=== PATIENT | female | born 1945 | race Caucasian/White ===

== ENCOUNTER → 2018-05-12 11:52 | Outpatient (CLI) | payer MEDICARE, SELFPAY ==
[2018-05-12 13:54] LABS: Absolute Lymphocyte Count 1.27 X10^3/ul (0.83-4.51); Absolute Neutrophil Count 3.5 X10^3/uL (2.0-7.7); Basophil# 0.03 X10^3/uL; Basophil% 0.6 % (0-1); Eosinophil# 0.17 X10^3/uL; Eosinophils% 3.2 % (0-5); Hematocrit 37.4 % (37-47); Hemoglobin 12.3 g/dl (12.0-15.0); Lymphocyte # 1.27 X10^3/ul (4.0); Lymphocyte % 23.8 % (19-41); Mean Corp Hgb Conc 32.9 g/gl (32-36); Mean Corpuscular Hgb 31.1 pg (27.0-32.0); Mean Corpuscular Volume 94.4 fL (81-99); Mean Platelet Vol. 12.8 fl (6.2-12.0); Monocyte# 0.31 X10^3/uL; Monocyte% 5.8 % (0-10); Neutrophil # 3.54 X10^3/uL (2.7-7.7); Neutrophil % 66.4 % (47-70); Platelet Count 174 K/mm3 (150-450); RBC Distribution Width CV 12.7 % (11.6-14.6); Red Blood Count 3.96 M/mm3 (4.2-5.4); White Blood Count 5.3 K/mm3 (4.4-11.0)
[2018-05-12 13:55] LABS: POSITIVE COUNT NO; POSITIVE DIFFERENTIAL NO; POSITIVE MORPHOLOGY NO
[2018-05-12 13:56] LABS: Anion Gap 9 (5-15); BUN 19 mg/dL (7-18); BUN/Creat Ratio 18.6 RATIO (10-20); Calcium,Total 9.5 mg/dL (8.5-10.1); Chloride 107 mmol/L (98-107); Creatinine, Serum 1.02 mg/dL (0.55-1.02); EST Glomerular Filtration Rate 57 mL/min (>60); Est Glom Filt Rate - Afr Amer 69 mL/min (>60); Glucose 89 mg/dL (74-106); Potassium 3.6 mmol/L (3.5-5.1); Sodium Level 143 mmol/L (136-145)
[2018-05-12 14:05] LABS: BNP,B-Type NATRIURETIC PEPTIDE 59.3 pg/mL (0-100)
== END ==
PROVIDERS: Family Provider Family Medicine; PCP Family Medicine; Visit Provider Family Medicine
DX: R06.02 Shortness of breath (principal)
CPT/HCPCS: 36415; 71046; 80048; 83880; 85025

== ENCOUNTER → 2018-08-13 16:11 | Outpatient (CLI) | payer MEDICARE, SELFPAY ==
--- NOTE | 2018-08-13 16:23 | BI_ITS ---
MAMMOGRAPHY - BILATERAL SCREENING REASON FOR EXAM: Female, 72 years old. Routine annual screening examination. PERTINENT HISTORY: Non-contributory. TECHNIQUE: Digital bilateral breast linda (3D mammographic acquisition) in the CC and MLO projections. 2-D mediolateral oblique (MLO) and craniocaudad (CC) views of both breasts were obtained. CAD: Full Field Digital Mammography with Computer Added Detection was performed. COMPARISON: Comparison is made with prior study dated July 16, 2017 and July 12, 2016. FINDINGS: Breast Composition: The breasts are heterogeneously dense, which may obscure small masses. There are no dominant masses or suspicious calcifications. A tissue clip marker is once again seen in the deep central slightly medial aspect of the left breast. A 7.4 mm nodular density is seen at that site. This is unchanged. No other significant abnormalities are identified. There has been no significant change since the prior study. BI/SCREENING MAMM (CAD), BILAT IMPRESSION: Stable bilateral screening mammogram. Yearly follow-up mammogram recommended. (A) ASSESSMENT CATEGORY: BIRADS Category 2: Benign. A letter regarding these results will be sent to the patient by the facility within 30 days. Approximately 10% of breast cancers are not detected by mammography. A normal mammogram should not delay biopsy of a clinically suspicious abnormality. [id number] Electronically Signed: Shyam Chung MD at 8:44 EST Tel [phone], Service support ,
--- OUTSIDE RECORDS SUMMARY | 2018-10-09 02:36 | XMS RPT_ITS ---
:1945 Author Organization OHIP Care Team Providers Name Role Phone Kayden Berg Attending Unavailable Kayden Berg Referring Unavailable Kayden Breg Primary Care Unavailable Kayden Berg Attending Unavailable Kayden Berg Primary Care Unavailable PROBLEMS PROBLEMS DATE TYPE CONDITION / CODE ATTENDING STATUS SOURCE 06/03/2018 Unknown R06.02 - Kayden Berg Active [place] Shortness of [facility] breath / Hospital R06.02(ICD-10) Repository PROCEDURES PROCEDURES No Procedure Records FoundRESULTS RESULTS SCREENING MAMM (CAD), Observed: 08/13/2018 Status: F Source: [place] BILAT 4:23 PM [facility] REPOSITORY [facility] Imaging Services [address] [place] [address] SCREENING MAMM (CAD), BILAT MR#: [id number] Acct: [id number] Name: LIA GTZ Rep #: [id number] : 1945 F 72 From: Shyam Chung MD PCP: Kayden Berg MD Status: REG CLI Study: SCREENING MAMM (CAD), BILAT Date of Exam: 08/13/18 Exam# [id number] Ordering Dr: Kayden Berg MD MAMMOGRAPHY - BILATERAL SCREENING REASON FOR EXAM: Female, 72 years old. Routine annual screening examination. PERTINENT HISTORY: Non-contributory. TECHNIQUE: Digital bilateral breast linda (3D mammographic acquisition) in the CC and MLO projections. 2-D mediolateral oblique (MLO) and craniocaudad (CC) views of both breasts were obtained. CAD: Full Field Digital Mammography with Computer Added Detection was performed. COMPARISON: Comparison is made with prior study dated July 16, 2017 and July 12, 2016. FINDINGS: Breast Composition: The breasts are heterogeneously dense, which may obscure small masses. There are no dominant masses or suspicious calcifications. A tissue clip marker is once again seen in the deep central slightly medial aspect of the left breast. A 7.4 mm nodular density is seen at that site. This is unchanged. No other significant abnormalities are identified. There has been no significant change since the prior study. BI/SCREENING MAMM (CAD), BILAT IMPRESSION: Stable bilateral screening mammogram. Yearly follow-up mammogram recommended. (A) ASSESSMENT CATEGORY: BIRADS Category 2: Benign. A letter regarding these results will be sent to the patient by the facility within 30 days. Approximately 10% of breast cancers are not detected by mammography. A normal mammogram should not delay biopsy of a clinically suspicious abnormality. [id number] Electronically Signed: Shyam Chung MD at 8:44 EST Tel [phone], Service support , CC: Kayden Berg MD City Controller: Signed CBC W/DIFF, AUTOMATED Collected: 05/12/2018 Status: F Source: [place] 12:02 PM [facility] REPOSITORY TYPE CODE TESTS RESULT OUT OF RANGE REFERENCE UNITS LAB L100.1000 4.4-11.0 K/mm3 Normal WBC 5.3 LAB L100.1200 4.2-5.4 M/mm3 Low RBC 3.96 LAB L100.1300 12.0-15.0 g/dl Normal HGB 12.3 LAB L100.1400 37-47 % Normal HCT 37.4 LAB L100.1500 81-99 fL Normal MCV 94.4 LAB L100.1600 27.0-32.0 pg Normal MCH 31.1 LAB L100.1700 32-36 g/gl Normal MCHC 32.9 LAB L100.1810 11.6-14.6 % Normal RDW CV 12.7 LAB L100.1820 35.1-43.9 fl Normal RDW SD 43.0 LAB L100.1900 150-450 K/mm3 Normal PLT 174 LAB L100.2000 6.2-12.0 fl High MPV 12.8 LAB L100.2100 47-70 % Normal NEUT% 66.4 LAB L100.2200 19-41 % Normal LY% 23.8 LAB L100.2300 0-10 % Normal MONO% 5.8 LAB L100.2400 0-5 % Normal EO% 3.2 LAB L100.2500 0-1 % Normal BASO% 0.6 LAB L100.2550 0.0-0.9 % Normal IM GRAN % 0.200 Result Comment: IG% - Immature Granulocytes (promyelocytes, myelocytes and metamyelocytes) > 1% indicates that a LEFT SHIFT is Present. LAB L100.2620 2.0-7.7 X10 3/uL Normal Absolute Neut 3.5 LAB L100.2720 0.83-4.51 X10 3/ul Normal Absolute Lymph 1.27 Performed By: #### L100.0100 #### [facility] [address] [place], [address] BASIC METABOLIC Collected: 05/12/2018 Status: F Source: [place] PROFILE (BMP) 12:02 PM [facility] REPOSITORY TYPE CODE TESTS RESULT OUT OF RANGE REFERENCE UNITS LAB L501.0100 74-106 mg/dL Normal GLU 89 Result Comment: Please note revised GLUCOSE reference range effective 2017. LAB L501.1000 7-18 mg/dL High BUN 19 LAB L501.1100 0.55-1.02 mg/dL Normal CREAT,SERUM 1.02 Result Comment: The validity of the calculated GFR AND GFRAA in patients over 70 years has not been determined. Clinical correlation is essential. LAB L501.1110 >60 mL/min Low EST GFR 57 Result Comment: Non- GFR Calc LAB L501.1115 >60 mL/min Normal EST GFR - AA 69 Result Comment: GFR Calc LAB L501.1300 10-20 RATIO Normal BUN/CRE 18.6 LAB L501.2200 8.5-10.1 mg/dL CA Normal 9.5 LAB L501.5300 136-145 mmol/L NA Normal 143 LAB L501.5600 3.5-5.1 mmol/L K Normal 3.6 LAB L501.5900 98-107 mmol/L CL Normal 107 LAB L501.6100 21.0-32.0 mmol/L Normal CO2 27.0 LAB L501.6200 5-15 Normal GAP 9 Performed By: #### L500.2500 #### [facility] [address] [place], [address] BNP,B-TYPE NATRIURETIC Collected: 05/12/2018 Status: F Source: [place] PEPTIDE 12:02 PM [facility] REPOSITORY TYPE CODE TESTS RESULT OUT OF RANGE REFERENCE UNITS LAB L503.6620 0-100 pg/mL Normal B-TYPE 59.3 JOSETTE PEP Performed By: #### L503.6620 #### [facility] [address] [facility] [place], [address] CHEST PA AND LATERAL Observed: 05/12/2018 Status: F Source: [place] 12:01 PM [facility] REPOSITORY [facility] Imaging Services [address] [place] [address] Chest PA and Lateral MR#: [id number] Acct: [id number] Name: LIA GTZ Rep #: [id number] : 1945 F 72 From: Sunil Pleitez MD PCP: Kayden Berg MD Status: REG CLI Study: Chest PA and Lateral Date of Exam: 05/12/18 Exam# [id number] Ordering Dr: Kayden Berg MD STUDY: X-RAY CHEST REASON FOR EXAM: Female, 72 years old. Shortness of breath TECHNIQUE: Frontal and lateral views of the chest COMPARISON: 02/03/2017 FINDINGS: There is a stable calcified granuloma in the right midlung. The lungs are otherwise clear. There are no pleural effusions. There is no pneumothorax. The heart is normal in size. The visualized osseous structures are within normal limits. RAD/Chest PA and Lateral IMPRESSION: No acute thoracic pathology. Electronically Signed: Sunil Pleitez, at 16:53 EDT Tel , Service support , CC: Kayden Berg MD City Controller: Signed ALLERGIES ALLERGIES DATE TYPE / CODE NAME / CODE REACTION SEVERITY SOURCE 02/03/2017 Drug Latex, Natural Rash Unknown Jd [facility] Allergy/4160 Rubber/[id number] Hospital 53178(SNOMED 526(RXNORM) Repository CT) 02/03/2017 Drug azithromycin/F Vomiting Unknown Jd [facility] Allergy/4160 [id number](RXNO Hospital 84901(SNOMED RM) Repository CT) ENCOUNTERS ENCOUNTERS ADMIT/DISCHARGE ACCOUNT ADMITTING ENCOUNTER LOCATION SOURCE NUMBER CLASS 08/13/2018 [id number] Ambulatory Jd Jd 4 [facility] ing:OPBI Repository 05/12/2018 [id number] Ambulatory [place] Jd 6 [facility] ing:MTLAB Repository PAYERS PAYERS ENCOUNTER GUARANTOR PAYER SUBSCRIBER SOURCE 08/13/2018 LIA Pena [place] [id number] Insurance:CHRISTI IBARRA: [facility] RDAPT MEDICARE [facility] [id number] Number: Repository [id number]: [phone] [id number] [phone] () Date:[id number] [id number]: 08/13/2018 Secondary NOT GIVENUNK Jd Insurance:SELF PAY [facility] Number: Effective Repository Date:2018-07-03 05/12/2018 LIA Pena Primary LIA Clements [id number] Insurance:CHRISTI HARRYB: [facility] RDAPT MEDICARE [facility] [id number] Number: Repository [id number]: [phone] [id number] [phone] () Date:[id number] [address] [place] [id number]: 05/12/2018 Secondary NOT GIVENGUILLERMINA Clements Insurance:SELF PAY [facility] Number: Effective Repository Date:2018-05-12
== END ==
PROVIDERS: Family Provider Family Medicine; PCP Family Medicine; Visit Provider Family Medicine
DX: Z12.31 Encounter for screening mammogram for malignant neoplasm of breast (principal)
CPT/HCPCS: 77063; 77067

== ENCOUNTER → 2018-12-04 13:56 | Outpatient (CLI) | payer MEDICARE, SELFPAY ==
[2018-12-04 18:05] LABS: Anion Gap 7 (5-15); BUN 19 mg/dL (7-18); BUN/Creat Ratio 18.3 RATIO (10-20); Calcium,Total 9.2 mg/dL (8.5-10.1); Chloride 106 mmol/L (98-107); Cholesterol 237 mg/dL (200); Creatinine, Serum 1.04 mg/dL (0.55-1.02); EST Glomerular Filtration Rate 56 mL/min (>60); Est Glom Filt Rate - Afr Amer 67 mL/min (>60); Glucose 87 mg/dL (74-106); High Density Lipoprotein 69 mg/dL; Potassium 3.9 mmol/L (3.5-5.1); Sodium Level 142 mmol/L (136-145); Triglycerides 108 mg/dL; Very Low Density Lipoprotein 22 mg/dL (5-40)
== END ==
PROVIDERS: Family Provider Family Medicine; PCP Family Medicine; Referring Provider Family Medicine; Visit Provider Family Medicine
DX: I10 Essential (primary) hypertension (principal)
CPT/HCPCS: 36415; 80048; 80061

== ENCOUNTER → 2019-01-06 10:45 | Outpatient (CLI) | payer MEDICARE, SELFPAY ==
[2017-02-03 07:34] VITALS: BMI 23.4
--- NOTE | 2019-01-06 10:51 | BD_ITS ---
STUDY: DUAL ENERGY X-RAY ABSORPTIOMETRY / DXA REASON FOR EXAM: Female, 73 years old. The patient is postmenopausal. No loss of height. TECHNIQUE: Bone Mineral Density (BMD) measurements of lumbar spine and bilateral hips were obtained. COMPARISON: Comparison is made with prior study dated January 02, 2017. FINDINGS: Lumbar Spine (L1-L4): g/cm2 (1.090) / T-score (-0.7) / Z-score (0.9) Findings are suggestive of normal bone density with a low fracture risk. Left Femur Total: g/cm2 (0.714) / T-score (-2.3) / Z-score (-0.8) Left Femoral Neck: g/cm2 (0.628) / T-score (-2.9) / Z-score (-1.2) Right Femur Total: g/cm2 (0.678) / T-score (-2.6) / Z-score (-1.1) Right Femoral Neck: g/cm2 (0.590) / T-score (-3.2) / Z-score (-1.5) The T-Scores on the most recent prior examination were: Lumbar Spine (L1-L4): There has been improvement of bone density since the previous examination. Left Femur Total: which represents an improvement of 0.8%. Right Femur Total: which represents a worsening of 1.7%. BD/Dexa Bone Density Study IMPRESSION: The patient is considered osteoporotic as outlined below according to World Homer Organization (WHO) criteria with a high fracture risk. There has been improvement of bone density since the previous examination. Reference Information: The T-score is the number of standard deviations above or below the standard which is normal for young adults at their peak bone mineral density. The World Health Organization (WHO) interprets the T-scores as follows: Above -1 Normal bone density Between -1 and -2.5 Osteopenia Equal to / or below -2.5 Osteoporosis As a practical clinical guideline, osteopenia may be graded as follows: Mild -1 through -1.5 Moderate -1.6 through -2.0 Severe -2.1 through -2.4 The Z-score is the number of standard deviations above or below age-matched controls. A Z-score of less than -1.5 would be considered abnormal. References: 1. NIH Osteoporosis and Related Bone Diseases http://www.osteo.org 2. International Society for Clinical Densitometry http://www.iscd.org 3. National Osteoporosis Foundation http://www.nof.org Electronically Signed: Shyam Chung, at 8:38 EDT , Service support ,
== END ==
PROVIDERS: Family Provider Family Medicine; PCP Family Medicine; Referring Provider Family Medicine; Visit Provider Family Medicine
DX: M81.0 Age-related osteoporosis without current pathological fracture (principal)
CPT/HCPCS: 77080

== ENCOUNTER 2019-05-01 06:43 | Emergency (ER) | payer MEDICARE, SELFPAY ==
[2019-05-01 06:44] VITALS: BP 217/117; PULSE 114; RESP 16; TEMP 37; O2SAT 96; BMI 26.6
--- NOTE | 2019-05-01 06:57 | RAD_ITS ---
STUDY: X-RAY - SOFT TISSUE NECK REASON FOR EXAM: Female, 73 years old. Pain possible foreign body TECHNIQUE: AP and lateral view(s) of the neck were obtained. COMPARISON: None. FINDINGS: Normal visualized nasopharynx, oropharynx, hypopharynx. There are no radiopaque foreign bodies. Normal epiglottis. Normal visualized subglottic tracheal air column. Normal prevertebral soft tissue structures. There is multilevel bony sclerosis of the facets.. There is disc space narrowing at C5-C6 there is a 3 mm anterior listhesis of C6 on C5. There is soft tissue mass within the right lower cervical region. RAD/Neck for Soft Tissue IMPRESSION: No radiopaque foreign bodies, if there is still clinical concern barium swallow or CT could be performed Soft tissue mass within the right lower cervical region, correlation with CT neck is recommended Multilevel spondylosis Electronically Signed: Elias Ambrosio, at 7:40 EDT Tel , Service support ,
--- NOTE | 2019-05-01 06:58 | ED.VIS.GEN ---
History of Present Illness Chief Complaint: Foreign Body Detail of Chief Complaint: Concern that a pit is stuck in her throat Informant: Patient Onset: Yesterday - Context: Sudden Onset Timing: Continuous Quality: Foreign body sensation Location: Anterior neck right level of larynx Current Severity: Mild Maximum Severity: Moderate Worsened by: Possibly swallowing Relieved by: Nothing Associated Symptoms: No dysphonia, no drooling Narrative: Patient is an elderly woman who presents with foreign body sensation since last evening. She was eating dates. She believes a pit is stuck. She did not sleep the entire night because she was concerned that her airway with occluded. She initially got up and would expectorate her saliva because she was concerned if she swallowed things would be worse. She is had no drooling. She slept upright in a chair. She has not had any to eat or drink since experiencing the foreign body sensation. She is on no antihypertensive meds. She denies history of hypertension. She denies headache. She does report problems with vision secondary to cataracts. She denies loss of vision or double vision. She denies slurring of her words. She denies ringing or ears or decreased hearing. She states her balance has been off the last 2 days. She denies clumsiness, however. She denies paresthesia, anesthesia or motor weakness. She was unaware that she had swelling of her lower extremities. She denies orthopnea or PND. She denies anginal anginal equivalent symptoms. Prior similar symptoms: No Recent Illness/Hospitalization: No Past Medical History - Allergies and Home Meds Allergies/Adverse Reactions: Allergies azithromycin Adverse Reaction (Verified 05/01/19 06:46) Vomiting Latex, Natural Rubber Adverse Reaction (Verified 05/01/19 06:46) Rash Primary Care Physician: Kayden Berg MD [Primary Care Provider] - Prior records reviewed: Yes - Based on medication patient has memory impairment Surgical History: noncontributory Lives: Alone Smoking Status: Never smoker Alcohol: None Drugs: None Review of Systems General: Denies: Chills, Fever, Malaise, Sweats, Weight loss Eyes: Denies: Visual changes - bilaterally, Blurred Vision - bilaterally, Diplopia ENT: Reports: - - No drooling, no dysphonia and no gagging. Denies: Bilateral ear pain, Rhinorrhea, Sore throat Cardiovascular: Denies: Chest pain, Palpitations, Heart racing Respiratory: Denies: Dyspnea, Cough, Dyspnea on exertion, Orthopnea, Paroxysmal nocturnal dyspnea Gastrointestinal: Denies: Abdominal pain, Nausea, Vomiting, Diarrhea, Melena, Hematochezia Genitourinary: Denies: Dysuria, Hematuria, Frequency Musculoskeletal: Denies: Back pain, Extremity Pain Skin: Denies: Rash, Wounds Neurological: Denies: Headache, Weakness, Numbness Psych: Reports: Anxiety. Denies: Suicidal thoughts, Suicidal ideations Hematologic: Denies: Easy bruising, Easy bleeding Allergy: Denies: Uticaria, Swelling of the mouth, Swelling of the tongue Physical Exam Vital Signs/Narrative: Vital Signs Temp Pulse Resp BP Pulse Ox 05/01/19 06:44 98.6 F 114 H 16 217/117 H 96 Inital Vital Signs reviewed: Yes - Blood pressure is significantly elevated General: Well nourished, Well developed, No Acute Distress Head: Normocephalic, Atraumatic Eyes: Perrl, EOMI ENT: Moist mucous membranes, No rhinorrhea, TM's clear, - - Trachea is midline. There is no stridor. There is no evidence of dysphonia or dysphasia. There is a lipoma noted anterior right neck which has been surgically removed x2 according the patient. Neck: Supple, Nontender, No lymphadenopathy, No JVD Cardiovascular: Regular rate, Regular rhythm, No murmurs, Normal S1, Normal S2 Respiratory: No distress, CTA bilaterally, Chest nontender Abdomen: Soft, Nontender, Nondistended, Normal bowel sounds Back: Nontender, Normal Inspection Extremities: Nontender, Edema - 1+ Skin: Normal color, No rash, No Trauma. Negative for: Cyanosis, Diaphoresis, Jaundice Neurological: Alert, Oriented x3, Cranial nerves II-XII grossly intact, Normal Strength, Normal Sensation, Normal DTR, Normal Gait Psychological: Normal affect, Normal Mood, - - Patient appears anxious Diagnostic/Tx/Re-eval Chest X-Ray - ED: 2 View, Read by ED Physician, - - Three-view x-ray of the soft tissue reveals no foreign body. Epiglottis is normal. There is air in the prevertebral space. There is no swelling of the prevertebral space. No evidence of foreign body in the vallecula. 0734 05/01/19 06:57 Xray Neck Soft Tissue [Neck for Soft Tissue] [RAD] Stat Laboratory Results 05/01/19 05/01/19 05/01/19 07:04 07:04 07:11 WBC 5.2 RBC 4.05 L Hgb 13.0 Hct 38.5 MCV 95.1 MCH 32.1 H MCHC 33.8 RDW Std Deviation 43.7 RDW Coeff of Keven 12.4 Plt Count 197 MPV 11.2 Immature Gran % (Auto) 0.000 Neut % (Auto) 47.7 Lymph % (Auto) 41.6 H Glasscock % (Auto) 6.8 Eos % (Auto) 3.1 Baso % (Auto) 0.8 Absolute Neuts (auto) 2.5 Absolute Lymphs (auto) 2.14 Nucleated RBC % 0 Sodium 141 Potassium 3.8 Chloride 106 Carbon Dioxide 27.0 Anion Gap 8 BUN 9 Creatinine 0.99 Estim Creat Clear Calc 39.33 Est GFR (MDRD) Af Amer 71 Est GFR (MDRD) Non-Af 59 L BUN/Creatinine Ratio 9.1 L Glucose 103 Calcium 9.2 Urine Color Yellow Urine Clarity Clear Urine pH 5.0 Ur Specific Kimberly 1.010 Urine Protein Negative Urine Glucose (UA) Normal Urine Ketones Negative Urine Occult Blood 10 H Urine Nitrite Negative Urine Bilirubin Negative Urine Urobilinogen Normal Ur Leukocyte Esterase 100 H Urine RBC 0 SEEN Urine WBC 0-5 SEEN Ur Squamous Epith Cells 0 SEEN Urine Bacteria 0 SEEN Urine Mucus 0 SEEN - Medical Decision Making Medications were reviewed. None of the medicines that she has listed are associated with angioedema. Suspect patient has an abrasion. Will obtain soft tissue x-ray to determine if there Is a pit. Because of her markedly elevated blood pressure pitting edema will obtain baseline blood work looking for evidence of endorgan injury. We will also monitor blood pressure. This may be secondary to anxiety since she voices concerns that are somewhat exaggerated and the fact that she is tachycardic. Since there is no obvious foreign body noted, patient was given a glass of water. Will reassess blood pressure. There is no evidence of endorgan injury. If blood pressure is still markedly elevated will initiate medication. Repeat blood pressure is 213/94. Patient received lisinopril in the emergency department and was discharged with prescription for lisinopril. She was instructed to follow-up with her primary care physician Dr. Kayden Berg in 1 to 2 weeks. ED Disposition - Plan for ED Patient: Diagnosis: Foreign body sensation in throat, Hypertension Instructions: SWALLOWED FOREIGN BODY (Adult), HYPERTENSION, New (Begin Treatment) Prescriptions: Lisinopril [Zestril] 10 mg PO DAILY #30 tab Prescription Printed Referrals: Kayden Berg MD [Primary Care Provider] - 1-2 Weeks
[2019-05-01 07:12] LABS: Absolute Lymphocyte Count 2.14 X10^3/uL (0.83-4.51); Absolute Neutrophil Count 2.5 X10^3/uL (2.0-7.7); Basophil# 0.04 X10^3/uL; Basophil% 0.8 % (0-1); Eosinophil# 0.16 X10^3/uL; Eosinophils% 3.1 % (0-5); Hematocrit 38.5 % (37-47); Lymphocyte # 2.14 X10^3/ul (4.0); Lymphocyte % 41.6 % (19-41); Mean Corp Hgb Conc 33.8 g/dL (32-36); Mean Corpuscular Hgb 32.1 pg (27.0-32.0); Mean Corpuscular Volume 95.1 fL (81-99); Mean Platelet Vol. 11.2 fl (6.2-12.0); Monocyte# 0.35 X10^3/uL; Monocyte% 6.8 % (0-10); NRBC Flagged by Analyzer 0 % (0-5); Neutrophil # 2.46 X10^3/uL (2.7-7.7); Neutrophil % 47.7 % (47-70); Platelet Count 197 K/mm3 (150-450); RBC Distribution Width CV 12.4 % (11.6-14.6); RBC Distribution Width SD 43.7 fl (35.1-43.9); Red Blood Count 4.05 M/mm3 (4.2-5.4); White Blood Count 5.2 K/mm3 (4.4-11.0)
[2019-05-01 07:19] LABS: Bacteria 0 SEEN /hpf (None Seen); Mucous, Urine 0 SEEN /hpf (<or=2+); Red Blood Cells-Urine 0 SEEN /hpf (0-5); Squamous Epithelial Cells - UA 0 SEEN /hpf (5-10)
[2019-05-01 07:25] LABS: Color, Urine Yellow (Yellow); Glucose, Dipstick Normal (Normal); Ketone-Dipstick Negative (Negative); Leukocyte Esterase-Dipstick 100 /ul (Negative); Nitrite-Dipstick Negative (Negative); Occult Blood-Urine 10 /ul (Negative); Protein-Dipstick Negative (Negative); Urine Bilirubin Dipstick Negative (Negative); Urine Clarity Clear (Clear); Urine Urobilinogen Normal (Normal)
[2019-05-01 07:28] LABS: Anion Gap 8 (5-15); BUN 9 mg/dL (7-18); BUN/Creat Ratio 9.1 RATIO (10-20); Calcium,Total 9.2 mg/dL (8.5-10.1); Chloride 106 mmol/L (98-107); Creatinine, Serum 0.99 mg/dL (0.55-1.02); EST Glomerular Filtration Rate 59 mL/min (>60); Est Glom Filt Rate - Afr Amer 71 mL/min (>60); Estimated Creatinine Clearance 39.33 ml/min; Glucose 103 mg/dL (74-106); Potassium 3.8 mmol/L (3.5-5.1); Sodium Level 141 mmol/L (136-145)
[2019-05-01 07:32] LABS: White Blood Cells 0-5 SEEN /hpf (0-5)
[2019-05-01 07:40] VITALS: BP 213/94; PULSE 75; RESP 14; O2SAT 97
[2019-05-01] MEDS: Lisinopril 10 MG Tablet PO (08:14)
== END 2019-05-01 08:20 | disposition home or self-care (01) ==
PROVIDERS: Emergency Provider Emergency Medicine; Family Provider Family Medicine; PCP Family Medicine
DX: R09.89 Other specified symptoms and signs involving the circulatory and respiratory systems (principal); I10 Essential (primary) hypertension; Z88.1 Allergy status to other antibiotic agents
CPT/HCPCS: 70360; 80048; 81001; 85025; 99284; A4216

== ENCOUNTER → 2019-05-26 12:07 | Outpatient (CLI) | payer MEDICARE, SELFPAY ==
[2019-05-26 11:01] VITALS: BMI 25.9
[2019-05-26 14:08] LABS: AST(SGOT) 23 U/L (15-37); Alanine Aminotransfer ALT/SGPT 20 U/L (13-56); Albumin, Serum 4.2 g/dL (3.2-5.0); Alkaline Phosphatase 60 U/L (45-117); Bilirubin, Direct 0.18 mg/dL (0.00-0.30); Cholesterol 203 mg/dL (200); Globulin 3.6 g/dL (2.2-4.2); High Density Lipoprotein 66 mg/dL; Protein, Total 7.8 g/dL (6.4-8.2); Triglycerides 97 mg/dL; Very Low Density Lipoprotein 19 mg/dL (5-40)
== END ==
PROVIDERS: Family Provider Family Medicine; PCP Family Medicine; Referring Provider Internal Medicine Cardiovascular Disease; Visit Provider Internal Medicine Cardiovascular Disease
DX: E78.00 Pure hypercholesterolemia, unspecified (principal)
CPT/HCPCS: 36415; 80061; 80076

== ENCOUNTER → 2019-06-09 09:29 | Outpatient (CLI) | payer MEDICARE, SELFPAY ==
[2019-05-26 11:01] VITALS: BMI 25.9
[2019-06-08 15:10] VITALS: BMI 25.9
--- NOTE | 2019-06-09 09:30 | STEWCON_ITS ---
Reason For Study: DYSPNEA/SOB Stress Results Protocol: Stress Echocardiogram Maximum Predicted HR: 149 bpm Target HR: 127 bpm % Maximum Predicted HR: 95 % DurationHeart Rate Stage (mm:ss) (bpm) BP Comment BASELINE 80 142/80DILUTED DEFINITY 2 CC USED MARCIA PROTOCOL- STAGE 1 3:00 113 150/76NO SX, RARE PVC MARCIA PROTOCOL- STAGE 2 3:00 142 168/78DYSPNEA, NO CP RECOVERY 86 140/80SHORT RUNS OF ECTOPIC ATRIAL TACHYCARDIA Stress Duration: 6:00 mm:ss Maximum Stress HR: 142 bpm Baseline Echocardiogram Findings The estimated ejection fraction is 65 %. Stress Echo Wall motion Data Resting WM Intermediate WM Stress WM Resting Wall Motion Wall Motion Stress No regional wall motion No regional wall motion abnormalities noted. abnormalities noted. EKG Data The baseline ECG displays normal sinus rhythm. The patient exercised according to the regular Marcia protocol for a total duration of 6:04. The maximum heart rate attained was 142 beats per minute. This was 95% of maximum predicted heart rate. The patient exercised into stage 3 of the Marcia protocol. At peak exercise, upsloping ST changes only were noted, which did not meet the criteria for ischemia. No clinical angina was noted. Interpretation Summary The estimated ejection fraction is 65 %. Normal, adequate, treadmill echocardiogram. Negative for ischemia by EKG and echocardiographic criteria. Hypertensive blood pressure response to exercise. Rare PVCs, PACs, and short burst of supraventricular tachycardia which was self terminating. Average exercise capacity for age. Test terminated due to attainment of target heart rate and dyspnea. Final LVEF of 75%. Decreased sensitivity due to poor echo windows requiring Definity agent. No complications. The study was technically difficult. Contrast injection was performed. Ordering Physician: Santiago Cedillo MD Referring Physician: Santiago Cedillo Performed By: Eugenia Herndon, RDCS, RVT
== END ==
PROVIDERS: Family Provider Family Medicine; PCP Family Medicine; Referring Provider Internal Medicine Cardiovascular Disease; Visit Provider Internal Medicine Cardiovascular Disease
DX: R06.02 Shortness of breath (principal); I16.0 Hypertensive urgency; I10 Essential (primary) hypertension
CPT/HCPCS: 93017; 93350; Q9957; A4216; C8928

== ENCOUNTER → 2019-06-12 13:38 | Outpatient (CLI) | payer MEDICARE, SELFPAY ==
[2019-05-26 11:01] VITALS: BMI 25.9
[2019-06-08 15:10] VITALS: BMI 25.9
--- NOTE | 2019-06-12 13:46 | ECHOD_ITS ---
Reason For Study: DYSPNEA/SOB Procedure This was a 2D Doppler, Color Flow transthoracic echocardiogram. Exam performed in department. Left Ventricle Normal size and thickness. The estimated ejection fraction is 65 %. Normal diastology for age. No regional wall motion abnormalities noted. Right Ventricle Normal size and thickness. Normal systolic function. Atria Normal left atrium. Normal right atrium. Normal atrial septum. Mitral Valve The mitral valve is structurally normal. No prolapse or stenosis seen. Mild (1+) posteriorly directed mitral valve insufficiency. Tricuspid Valve Normal tricuspid valve. Trivial tricuspid valve insufficiency. Right ventricular systolic pressure estimated to be 29 mmHg. Aortic Valve Trisinus/trileaflet aortic valve. Normal aortic valve. Pulmonic Valve Normal pulmonic valve. Great Vessels Normal aortic root. Normal arch. Normal inferior vena cava. Inferior vena cava collapse with sniff. Pericardium/Pleural No pericardial effusion. MMode/2D Measurements & Calculations LVIDd: 3.4 cm IVSd: 0.83 cm Ao root diam: 2.3 cm LVIDs: 2.3 cm LVPWd: 0.80 cm RVDd: 2.7 cm FS: 30.5 % LAV(MOD-bp): 43.2 ml EDV(MOD-sp4): 44.1 ml EDV(MOD-sp2): 47.7 ml LAV(MOD-bp) Indexed: 27.5 ml/m2 ESV(MOD-sp4): 12.7 ml EF(MOD-sp2): 64.4 % LAV(MOD-sp2): 36.4 ml EF(MOD-sp4): 71.3 % LAV(MOD-sp4): 41.1 ml SV(MOD-sp4): 31.4 ml SV(MOD-sp2): 30.8 ml LA A4 area: 14.4 cm2 LA dimension(2D): 2.8 cm RA A4 area: 9.6 cm2 Time Measurements MV dec time: 0.14 sec Doppler Measurements & Calculations MV E max ren: 94.7 cm/sec Lat Peak E' Ren: 9.8 cm/sec Med Peak E' Ren: 6.8 cm/sec MV A max ren: 76.7 cm/sec E/E' lat: 9.7 E/E' med: 13.8 MV E/A: 1.2 Ao V2 max: 126.6 cm/sec LV V1 max: 108.3 cm/sec PA V2 max: 93.0 cm/sec Ao max P.4 mmHg LV V1 max P.7 mmHg TR max ren: 248.1 cm/sec TR max P.6 mmHg Interpretation Summary The estimated ejection fraction is 65 %. Normal diastology for age. Mild (1+) posteriorly directed mitral valve insufficiency. Trivial tricuspid valve insufficiency. Right ventricular systolic pressure estimated to be 29 mmHg. There is no comparison study available. Ordering Physician: Santiago Cedillo Referring Physician: Kayden Berg Performed By: Eugneia Herndon RDCS, RVT
== END ==
PROVIDERS: Family Provider Family Medicine; PCP Family Medicine; Referring Provider Internal Medicine Cardiovascular Disease; Visit Provider Internal Medicine Cardiovascular Disease
DX: R06.02 Shortness of breath (principal)
CPT/HCPCS: 93306

== ENCOUNTER → 2019-06-22 20:00 | Outpatient (CLI) | payer MEDICARE, SELFPAY ==
[2019-05-26 11:01] VITALS: BMI 25.9
== END ==
PROVIDERS: Family Provider Family Medicine; PCP Family Medicine; Referring Provider Internal Medicine Cardiovascular Disease; Visit Provider Internal Medicine Cardiovascular Disease
DX: G47.10 Hypersomnia, unspecified (principal)
CPT/HCPCS: 95810

== ENCOUNTER → 2019-08-03 20:08 | Outpatient (CLI) | payer MEDICARE, SELFPAY ==
[2019-07-09 08:23] VITALS: BMI 27.3
== END ==
PROVIDERS: Family Provider Family Medicine; PCP Family Medicine; Visit Provider Internal Medicine Critical Care Medicine
DX: G47.33 Obstructive sleep apnea (adult) (pediatric) (principal)
CPT/HCPCS: 95811

== ENCOUNTER → 2019-11-04 12:44 | Outpatient (CLI) | payer MEDICARE, SELFPAY ==
[2019-10-13 06:14] VITALS: BMI 27.2
[2019-11-04 14:20] LABS: Anion Gap 6 (5-15); Chloride 106 mmol/L (98-107); Potassium 3.9 mmol/L (3.5-5.1); Sodium Level 140 mmol/L (136-145)
== END ==
PROVIDERS: PCP Family Medicine; Referring Provider Internal Medicine Pulmonary Disease; Visit Provider Internal Medicine Pulmonary Disease
DX: G47.31 Primary central sleep apnea (principal); J96.10 Chronic respiratory failure, unspecified whether with hypoxia or hypercapnia
CPT/HCPCS: 36415; 80051

== ENCOUNTER 2019-11-09 06:39 | Day surgery (SDC) | payer MEDICARE, SELFPAY ==
[2019-09-23 10:10] VITALS: BMI 27.3
[2019-10-13 06:14] VITALS: BMI 27.2
[2019-11-09] VITALS (7 sets, daily range): BP systolic 133–156; BP diastolic 55–84; PULSE 66–77; RESP 14–18; TEMP 36.2–36.5; O2SAT 99–100; BMI 26.2
[2019-11-09] MEDS: Lactated Ringers 1,000 ML 100 ML IV (07:18)
--- NOTE | 2019-11-09 07:59 | HP.PCM_ITS ---
History of Present Illness Date of Admission: 11/09/19 The patient is a 73 year old F who presents for screening colonoscopy. Her last colonoscopy was in 2005 done in [place]. She states that there was no mentions of polyps at that time. She states that she has no family history of colon cancer. Past Medical/Surgical History - Planned Operation Planned Operative Procedure/s: COLONOSCOPY Date of Operative Procedure: 11/09/19 Permit Signed: Yes S.O.S: No Is This Patient Having a Total Joint: No - Previous Hospitalizations/Surgeries HX Hospitalizations: No HX of Surgeries: LIPOMA X2. HX OF NECK SURGERY. NEPHROLITHOTOMY W/ REMOVAL OF CALCULI Any Problems With Anesthesia: No You/Your Family Experience Fever (Hyperthermia) With Anes: No Cholinesterase deficiency: No - Cardiovascular Hx Chest Pain within Last 2 months: No Hx of Irregular Heartbeat and/or Afib: No Hx Heart Attack: No Hx Congestive Heart Failure: No Hx Rheumatic Fever: No Hx Hypertension: Yes - ON MED, CONTROLLED Hx Internal Defibrillator: No Hx Pacemaker: No Hx Cardiac Catheterization: No Hx Cardiac Surgery/Stents/Etc.: No Hx Stress Test: Yes - 06/09/19, ECHO 06/12/19 HX Edema: Yes Hx Pain in Legs when Walking/Leg Cramps: Yes - Respiratory Chronic Cough: No HX of Shortness of Breath: Yes Hoarseness: Yes Hx Chronic Obstructive Pulmonary Disease (COPD): No Hx Asthma: No Hx Emphysema: Yes Hx Sleep Apnea: Yes CPAP: No BIPAP: Yes Hx Oxygen Use at Home: No Hx Respiratory Tract Infection/Cold (presently): No Result (for STOP score): Positive Hx Smoking: No Smoking Status: Never smoker - Gastrointestinal Hx Gastroesophageal Reflux: Yes - 05/04 Controlled With Meds: No - RESOLVED Hx Gastrointestinal Disorders: No Hx Gastrointestinal Bleed: No Hx Ulcer: No Hx Hiatal Hernia: No Difficulty Chewing/Swallowing: Yes Recent Onset of Swallowing Problems: No Special diet followed at home: No Hx Unplanned Weight Loss of 20#: No HX Unplanned Weight Gain of 20#: No - Neurological Hx Seizures: No HX Syncope/Blackout Spells/Unconsciousness: Yes - YRS AGO WHILE TAKING CONTROL MED Hx CVA/Stroke: No Hx Transient Ischemic Attacks (TIA): No Hx Multiple Sclerosis: No Hx Parkinson's Disease: No Hx Head/Neck Injury: No Hx Headaches: No Hx Back Injury/Pain: Yes Recent Onset of Speech Difficulty: No Restless Legs: Yes - ON MED Does patient have nerve stimulator: No - Blood Disorder Hx Leukemia: No Bleeding Tendencies: No Hx Deep Vein Thrombosis: Yes - HX OF PE Hx High Cholesterol: No Blood Transmitted Disease: No Hx Hepatitis: No Hx Cirrhosis: No Hx Anemia: Yes - HX OF Hx Blood Disorders: No - Reproduction : No Is Patient Lactating: No Hx Hysterectomy: No Hx Tubal Ligation: No Are You Post Menopause: Yes - Genitourinary Hx Renal Disease: Yes - KIDNEY STONES - Musculoskeletal Hx Arthritis: Yes Hx Rheumatoid Arthritis: No Hx Gout: No Recent Onset of an Orthopedic Problem: No - Endocrine Hx Diabetes: No Thyroid Disease: No Hx Steroid Therapy: No - Psycho/Social Hx Substance Use: No Hx Alcohol Use: No Hx Anxiety: No Hx Depression: Yes Mental Illness: No Hx Dementia: No - Miscellaneous Hx Cancer: No Recent Exposure to Contagious Disease: No Active MRSA: No Hx of C-Diff: No Any Loose Teeth: No Allergies cigarette smoke Allergy (Verified 11/09/19 06:58) Unknown erythromycin base Allergy (Verified 11/09/19 06:58) Vomiting grass pollen Allergy (Verified 11/09/19 06:58) Unknown azithromycin Adverse Reaction (Verified 11/09/19 06:58) Vomiting Latex, Natural Rubber Adverse Reaction (Verified 11/09/19 06:58) Rash - Discharge Is Pt Admitted From a Snf, or a [facility]ci: No Who Could Help: HOSP TRANS After D/C, Where Do you Plan to Go: Return Home - From the PAT History Number of Risk Factors: 7 - Physical Exam Vitals/I&O's: Vital Signs Temp Pulse Resp BP Pulse Ox 97.2 F L 70 14 133/55 H 100 11/09/19 06:59 11/09/19 06:59 11/09/19 06:59 11/09/19 06:59 11/09/19 06:59 Oxygen Delivery Method Room Air Weight: 136 lb 3.931 oz Body Mass Index (BMI) 26.2 General: Alert, Oriented x3 Lungs: Clear to auscultation Cardiovascular: Regular rate, Regular Rhythm, No murmurs Abdomen: Bowel Sounds Present, Soft, Non Tender, Non-Distended Current Medications Lactated Ringer's () 1,000 mls @ 100 mls/hr IV .Q10H [facility] Last Admin: 11/09/19 07:18 Dose: 100 mls/hr Documented by: Assessment/Plan All Active Problems (Last Reviewed 10/13/19 @ 10:30 by Reyna Coley) Sleep apnea treated with nocturnal BiPAP (Acute) BILL (obstructive sleep apnea) (Acute) History of nephrolithotomy with removal of calculi (Resolved) Lipoma (Acute) Vision problems (Acute) History of pneumonia (Acute) Osteopenia (Acute) Hypoglycemia (Acute) Foreign body of right ring finger (Acute) Hypertensive urgency (Acute) Lipoma (Resolved) Kidney stone (Acute) Incontinence (Acute) Limb weakness (Acute) Difficulty balancing (Acute) Knee pain (Acute) Anemia (Acute) Shoulder pain (Acute) Hemorrhoids (Acute) Assessment: Screening colonoscopy Plan: We will be to perform a colonoscopy. Surgery Risks - Colonoscopy Risks Include but are not Limited To: Risks include but are not limited to: Bleeding, perforation requiring further surgery, inability to complete colonoscopy requiring barium enema.
--- NOTE | 2019-11-09 08:28 | OP.COLON_ITS ---
Patient Name: Tomeka Velasquez Procedure Date: 11/09/2019 8:03 AM Date of : 1945 Age: 73 Procedure: Colonoscopy Indications: Screening for colorectal malignant neoplasm Providers: Santiago Agrawal MD Referring MD: Kayden Berg MD Medicines: See the Anesthesia note for documentation of the administered medications Patient Profile: This is a 73 year old female. Refer to note in patient chart for documentation of history and physical. Last Colonoscopy: 2005. Complications: No immediate complications. Procedure: Pre-Anesthesia Assessment: - Prior to the procedure, a History and Physical was performed, and patient medications and allergies were reviewed. The patient's tolerance of previous anesthesia was also reviewed. The risks and benefits of the procedure and the sedation options and risks were discussed with the patient. All questions were answered, and informed consent was obtained. Prior Anticoagulants: The patient has taken no previous anticoagulant or antiplatelet agents. ASA Grade Assessment: II - A patient with mild systemic disease. After reviewing the risks and benefits, the patient was deemed in satisfactory condition to undergo the procedure. After I obtained informed consent, the scope was passed under direct vision. Throughout the procedure, the patient's blood pressure, pulse, and oxygen saturations were monitored continuously. The adult colonoscope was introduced through the anus and advanced to the cecum, identified by appendiceal orifice and ileocecal valve. The colonoscopy was performed without difficulty. The patient tolerated the procedure well. The quality of the bowel preparation was good. Scope In: 8:13:55 AM Scope Withdrawal Time 0 hours 5 minutes 58 seconds Scope Out: 8:24:09 AM Total Procedure Duration Time 0 hours 10 minutes 14 seconds Findings: The entire examined colon appeared normal on direct and retroflexion views. Impression: - The entire examined colon is normal on direct and retroflexion views. - No specimens collected. Recommendation: - Discharge patient to home. - Resume previous diet. - Continue present medications. - Repeat colonoscopy in 10 years for screening purposes. - Return to primary care physician (date not yet determined). Procedure Code(s): --- Professional --- G0121, Colorectal cancer screening; colonoscopy on individual not meeting criteria for high risk Diagnosis Code(s): --- Professional --- Z12.11, Encounter for screening for malignant neoplasm of colon CPT copyright 2017 [employer]. All rights reserved. The codes documented in this report are preliminary and upon purchase request editor review may be revised to meet current compliance requirements. MD Santiago Bower MD 11/09/2019 8:28:05 AM This report has been signed electronically. Number of Addenda: 0 Note Initiated On: 11/09/2019 8:03 AM
--- NOTE | 2019-11-09 08:28 | OP.CCLET_ITS ---
11/09/2019 Kayden Berg MD [address] [id number] Re : Colonoscopy procedure for Tomeka Velasquez Dear Dr. Berg This procedure was performed on Saturday, November 09, 2019. My impressions and recommendations are as follows: Impressions : - The entire examined colon is normal on direct and retroflexion views. - No specimens collected. Recommendations : - Discharge patient to home. - Resume previous diet. - Continue present medications. - Repeat colonoscopy in 10 years for screening purposes. - Return to primary care physician (date not yet determined). My findings are described in the full procedure note, which is enclosed. If I can be of further assistance, please feel free to contact me at Doctor phone number(s): , Fax: [phone], Work: . Sincerely, MD Santiago Bower MD 11/09/2019 8:28:05 AM This report has been signed electronically.
== END 2019-11-09 09:19 | disposition home or self-care (01) ==
LOC: EN 06:40 → AC 06:42
PROVIDERS: PCP Family Medicine; Referring Provider Family Medicine; Visit Provider Surgery
PROC: 0DJD8ZZ Inspection of Lower Intestinal Tract, Via Natural or Artificial Opening Endoscopic (ICD-10-PCS; CPT 45378; principal; 2019-11-09 07:55)
DX: Z12.11 Encounter for screening for malignant neoplasm of colon (principal); F32.9 Major depressive disorder, single episode, unspecified; Z88.1 Allergy status to other antibiotic agents; Z87.442 Personal history of urinary calculi; Z86.711 Personal history of pulmonary embolism; Z91.040 Latex allergy status
CPT/HCPCS: G0121; J7120; J2405

== ENCOUNTER → 2019-12-09 11:02 | Outpatient (CLI) | payer MEDICARE, SELFPAY ==
[2019-11-30 11:01] VITALS: BMI 25.9
[2019-12-09 12:21] LABS: ALB/GLOB Ratio 1.1 RATIO (0.9-2.4); AST(SGOT) 28 U/L (15-37); Alanine Aminotransfer ALT/SGPT 27 U/L (13-56); Albumin, Serum 4.1 g/dL (3.2-5.0); Alkaline Phosphatase 76 U/L (45-117); Anion Gap 8 (5-15); BUN 27 mg/dL (7-18); BUN/Creat Ratio 21.4 RATIO (10-20); Calcium,Total 8.7 mg/dL (8.5-10.1); Chloride 95 mmol/L (98-107); Creatinine, Serum 1.26 mg/dL (0.55-1.02); EST Glomerular Filtration Rate 44 mL/min (>60); Est Glom Filt Rate - Afr Amer 54 mL/min (>60); Globulin 3.9 g/dL (2.2-4.2); Glucose 94 mg/dL (74-106); Potassium 4.3 mmol/L (3.5-5.1); Sodium Level 130 mmol/L (136-145)
[2019-12-09 12:26] LABS: Absolute Lymphocyte Count 1.57 X10^3/uL (0.83-4.51); Absolute Neutrophil Count 2.7 X10^3/uL (2.0-7.7); Basophil# 0.05 X10^3/uL; Eosinophil# 0.19 X10^3/uL; Eosinophils% 3.8 % (0-5); Hematocrit 35.7 % (37-47); Hemoglobin 11.8 g/dL (12.0-15.0); Lymphocyte # 1.57 X10^3/ul (4.0); Lymphocyte % 31.2 % (19-41); Mean Corp Hgb Conc 33.1 g/dL (32-36); Mean Corpuscular Hgb 30.3 pg (27.0-32.0); Mean Corpuscular Volume 91.5 fL (81-99); Monocyte# 0.55 X10^3/uL; Monocyte% 10.9 % (0-10); NRBC Flagged by Analyzer 0 % (0-5); Neutrophil # 2.66 X10^3/uL (2.7-7.7); Neutrophil % 52.9 % (47-70); Platelet Count 212 K/mm3 (150-450); RBC Distribution Width CV 12.1 % (11.6-14.6); RBC Distribution Width SD 40.8 fl (35.1-43.9)
== END ==
PROVIDERS: PCP Family Medicine; Referring Provider Family Medicine; Visit Provider Family Medicine
DX: R10.9 Unspecified abdominal pain (principal)
CPT/HCPCS: 36415; 80053; 85025

== ENCOUNTER → 2019-12-21 14:20 | Outpatient (CLI) | payer MEDICARE, SELFPAY ==
[2019-11-30 11:01] VITALS: BMI 25.9
--- NOTE | 2019-12-21 14:30 | RAD_ITS ---
STUDY: X-RAY CHEST REASON FOR EXAM: Female, 74 years old. Patient complains of cough TECHNIQUE: PA and lateral views of the chest. COMPARISON: Comparison is made with prior study dated May 12, 2000. FINDINGS: Hyperinflation. Stable calcified nodule in the superior segment of the right lower lobe. There is no demonstrated pleural abnormality. Normal size heart. Normal mediastinum and brian. Normal visualized pulmonary arteries. Normal visualized aortic arch and descending thoracic aorta. Normal visualized thoracic spine. Normal visualized ribs, clavicles, and shoulders. There is no demonstrated abnormality of the visualized soft tissue structures of the upper abdomen. RAD/Chest PA and Lateral IMPRESSION: Hyperinflation. Stable calcified nodule in the superior segment of the right lower lobe. Electronically Signed: Shyam Chung, at 16:07 EDT , Service support ,
[2019-12-21 17:25] LABS: Absolute Lymphocyte Count 1.29 X10^3/uL (0.83-4.51); Basophil# 0.03 X10^3/uL; Basophil% 0.8 % (0-1); Eosinophil# 0.12 X10^3/uL; Eosinophils% 3.1 % (0-5); Hematocrit 32.3 % (37-47); Hemoglobin 10.6 g/dL (12.0-15.0); Lymphocyte # 1.29 X10^3/ul (4.0); Lymphocyte % 33.4 % (19-41); Mean Corp Hgb Conc 32.8 g/dL (32-36); Mean Corpuscular Hgb 30.5 pg (27.0-32.0); Mean Corpuscular Volume 92.8 fL (81-99); Mean Platelet Vol. 13.8 fl (6.2-12.0); Monocyte# 0.37 X10^3/uL; Monocyte% 9.6 % (0-10); NRBC Flagged by Analyzer 0 % (0-5); Neutrophil # 2.04 X10^3/uL (2.7-7.7); Neutrophil % 52.8 % (47-70); POSITIVE COUNT YES; Platelet Count 140 K/mm3 (150-450); RBC Distribution Width CV 11.9 % (11.6-14.6); RBC Distribution Width SD 40.3 fl (35.1-43.9); Red Blood Count 3.48 M/mm3 (4.2-5.4); White Blood Count 3.9 K/mm3 (4.4-11.0)
[2019-12-21 17:29] LABS: Differential Indicated SCAN CRITERIA MET
[2019-12-21 18:29] LABS: Differential Comment SCANNED
== END ==
PROVIDERS: PCP Family Medicine; Referring Provider Family Medicine; Visit Provider Family Medicine
DX: R05 Cough (principal)
CPT/HCPCS: 36415; 71046; 85025

== ENCOUNTER → 2020-01-28 10:40 | Outpatient (CLI) | payer MEDICARE, SELFPAY ==
[2019-11-30 11:01] VITALS: BMI 25.9
[2020-01-28 13:46] LABS: Anion Gap 7 (5-15); BUN 21 mg/dL (7-18); Calcium,Total 8.2 mg/dL (8.5-10.1); Chloride 109 mmol/L (98-107); Cholesterol 217 mg/dL (200); Creatinine, Serum 1.05 mg/dL (0.55-1.02); EST Glomerular Filtration Rate 55 mL/min (>60); Est Glom Filt Rate - Afr Amer 66 mL/min (>60); Glucose 95 mg/dL (74-106); High Density Lipoprotein 66 mg/dL; Potassium 4.3 mmol/L (3.5-5.1); Sodium Level 142 mmol/L (136-145); Triglycerides 70 mg/dL; Very Low Density Lipoprotein 14 mg/dL (5-40)
== END ==
PROVIDERS: PCP Family Medicine; Visit Provider Family Medicine
DX: I10 Essential (primary) hypertension (principal)
CPT/HCPCS: 36415; 80048; 80061

== ENCOUNTER → 2020-07-28 11:38 | Outpatient (CLI) | payer MEDICARE, SELFPAY ==
[2020-06-16 14:08] VITALS: BMI 25.9
[2020-07-28 16:05] LABS: Anion Gap 4 (5-15); BUN 18 mg/dL (7-18); BUN/Creat Ratio 14.3 RATIO (10-20); Calcium,Total 8.3 mg/dL (8.5-10.1); Chloride 111 mmol/L (98-107); Cholesterol 185 mg/dL (200); Creatinine, Serum 1.26 mg/dL (0.55-1.02); EST Glomerular Filtration Rate 44 mL/min (>60); Est Glom Filt Rate - Afr Amer 54 mL/min (>60); Glucose 79 mg/dL (74-106); High Density Lipoprotein 62 mg/dL; Potassium 3.7 mmol/L (3.5-5.1); Sodium Level 143 mmol/L (136-145); Triglycerides 54 mg/dL; Very Low Density Lipoprotein 11 mg/dL (5-40)
== END ==
PROVIDERS: PCP Family Medicine; Referring Provider Family Medicine; Visit Provider Family Medicine
DX: I10 Essential (primary) hypertension (principal)
CPT/HCPCS: 36415; 80048; 80061

== ENCOUNTER 2020-11-24 14:41 | Outpatient (RCR) | payer MEDICARE, SELFPAY ==
[2020-08-17 09:48] VITALS: BMI 23.3
[2020-11-24] MEDS: COVID-19 VACC, MRNA(PFIZER)/PF 30 MCG/0.3 ML SYRINGE IM (13:56)
[2020-11-24 14:20] VITALS: BMI 23.3
[2020-12-15] MEDS: COVID-19 VACC, MRNA(PFIZER)/PF 30 MCG/0.3 ML SYRINGE IM (13:41)
== END 2021-02-21 23:59 ==
LOC: IMMUN 14:41
PROVIDERS: PCP Family Medicine; Visit Provider Family Medicine
DX: Z23 Encounter for immunization (principal)
CPT/HCPCS: 0001A; 0002A; 91300

== ENCOUNTER → 2021-01-23 16:08 | Outpatient (CLI) | payer MEDICARE, SELFPAY ==
--- NOTE | 2021-01-23 16:12 | RAD_ITS ---
STUDY: X-RAY - LUMBAR SPINE REASON FOR EXAM: Female, 75 years old. FALL WITH INJURY TECHNIQUE: 5 view(s) of the lumbar spine were obtained. COMPARISON: None FINDINGS: Normal lumbar lordosis. There is no substantial scoliosis. There is a normal alignment of the vertebrae. Normal vertebral bodies and endplates. Normal disc space heights. The soft tissue structures are unremarkable. RAD/L/S Spine Min 4 Views IMPRESSION: Normal x-ray examination of the lumbar spine. Electronically Signed: Haim Wilson MD at 8:35 EDT Tel , Service support ,
== END ==
PROVIDERS: PCP Family Medicine; Referring Provider Family Medicine; Visit Provider Family Medicine
DX: T14.8XXA Other injury of unspecified body region, initial encounter (principal); W19.XXXA Unspecified fall, initial encounter
CPT/HCPCS: 72110

== ENCOUNTER 2021-01-26 04:33 | Inpatient (IN) | payer MEDICARE, SELFPAY ==
[2021-01-26] VITALS (11 sets, daily range): BP systolic 100–186; BP diastolic 44–77; PULSE 66–94; RESP 16–17; TEMP 35.8–36.6; O2SAT 99–100; BMI 27.3; BMI 26.3
[2021-01-26 04:55] LABS: Bacteria 0 SEEN /hpf (None Seen); Mucous, Urine 0 SEEN /hpf (<or=2+)
[2021-01-26 04:59] LABS: Color, Urine Yellow (Yellow); Glucose, Dipstick Normal (Normal); Ketone-Dipstick 50 mg/dl (Negative); Leukocyte Esterase-Dipstick 500 /ul (Negative); Nitrite-Dipstick Negative (Negative); Occult Blood-Urine 50 /ul (Negative); Protein-Dipstick 30 mg/dl (Negative); Urine Bilirubin Dipstick Negative (Negative); Urine Clarity Sl. Cloudy (Clear); Urine Urobilinogen Normal (Normal)
[2021-01-26 05:05] LABS: Red Blood Cells-Urine 0-5 SEEN /hpf (0-5); Squamous Epithelial Cells - UA 0-5 SEEN /hpf (5-10); White Blood Cells 5-10 SEEN /hpf (0-5)
[2021-01-26 05:21] LABS: Anion Gap 10 (5-15); BUN 16 mg/dL (7-18); Calcium,Total 8.7 mg/dL (8.5-10.1); Chloride 81 mmol/L (98-107); EST Glomerular Filtration Rate 58 mL/min (>60); Est Glom Filt Rate - Afr Amer 70 mL/min (>60); Estimated Creatinine Clearance 35.99 ml/min; Glucose 110 mg/dL (74-106); Potassium 3.8 mmol/L (3.5-5.1); Sodium Level 116 mmol/L (136-145)
--- NOTE | 2021-01-26 05:33 | EX.ED.DYSGE1 ---
HPI History of Present Illness Chief Complaint: Complaint Detail of Chief Complaint: Patient reports decreased urine output Informant: patient Onset/Context/Timing Onset: Today Context: Gradual Onset Timing: Continuous Current Severity: Mild Worsened by: Nothing Relieved by: Nothing Associated Symptoms Associated Symptoms: None Narrative Narrative: Patient reports decreased urine output. She thinks her kidneys are not working appropriately. She is not aware of any history of chronic kidney disease. She has had kidney stones. She is denying blood, burning, frequency. She increased her fluids a little bit today, but not much from baseline. She is taking her meds as prescribed. She was able to urinate prior to arrival, but overall is concerned about her decreased urine output throughout the day today. Prior similar symptoms: No Recent Illness/Hospitalization: No PFSH PFSH Medical History Anemia Anxiety and depression Arthritis Back pain Cataracts, bilateral Difficulty balancing Fatigue GERD (gastroesophageal reflux disease) Hearing problem Hemorrhoids High cholesterol History of pneumonia HTN (hypertension) Hypertensive urgency Hypoglycemia Incontinence Irritable bowel syndrome (IBS) Kidney stone Knee pain Limb weakness Lipoma Osteopenia Restless leg syndrome Seasonal allergies Shoulder pain Sleep apnea treated with nocturnal BiPAP SOB (shortness of breath) Vision problems Vitamin deficiency Home Medications aspirin 81 mg PO DAILY 12/02/16 [History Last Taken Unknown] ropinirole 0.5 mg PO QHS 12/02/16 [History Last Taken Unknown] ibandronate 150 mg PO QMONTH 05/01/19 [History Last Taken Unknown] loratadine 10 mg PO DAILY 05/01/19 [History Last Taken Unknown] calcium carbonate 600 mg(1,500 mg)-vitamin D3 800 unit chewable tablet 2 tab PO DAILY tab 05/22/19 [History Last Taken Unknown] djvobuuwuknw-ccgnneyh-vhowdcq-folic acid 400 mcg-vit K1 20 mcg tablet 1 tab PO DAILY tab 05/22/19 [History Last Taken Unknown] peg 400-propylene glycol (PF) 1 ea OP PRN PRN 11/04/19 [History Last Taken Unknown] lisinopril 40 mg tablet 40 mg PO DAILY #30 tab 04/08/20 [Rx Last Taken Unknown] hydrochlorothiazide 12.5 mg tablet 12.5 mg PO QAM 08/17/20 [History Last Taken Unknown] urea 45 % topical gel 1 applic TOPICAL DAILY ml 08/17/20 [History Last Taken Unknown] Allergy/AdvReac Type Severity Reaction Status Date / Time cigarette smoke Allergy Unknown Verified 01/26/21 04:47 erythromycin base Allergy Vomiting Verified 01/26/21 04:47 grass pollen Allergy Unknown Verified 01/26/21 04:47 azithromycin AdvReac Vomiting Verified 01/26/21 04:47 Latex, Natural Rubber AdvReac Rash Verified 01/26/21 04:47 Family History Father Myocardial infarction Respiratory disease Mother CVA (cerebral vascular accident) Brain tumor History of blood clots Bowel disease Anxiety and depression Epilepsy Hormone deficiency Seizures Allergy to antibiotic Daughter defect Sister Heart disease Rheumatic fever Other Tuberculosis Surgical History History of neck surgery History of nephrolithotomy with removal of calculi Lipoma Social History Smoking Status: Never smoker alcohol intake: never substance use type: does not use additional social history: DOES USE ASPIRIN DOES NOT USE IBUPROFEN ROS ROS ED Constitutional Constitutional ED: Denies chills or fever(s) Eyes Eyes: Denies change in vision ENT ENT ED: Denies ear pain Cardiovascular Cardiovascular: Denies chest pain Respiratory/Chest Respiratory/Chest: Denies cough or dyspnea Gastrointestinal Gastrointestinal: Denies abdominal pain, nausea or vomiting Genitourinary Genitourinary ED: Denies dysuria, hematuria or urinary frequency Musculoskeletal Musculoskeletal: Denies arthralgias or myalgias Integumentary Denies abscess or rash Neurologic Neurologic: Denies headache(s), paresthesias or weakness Psychiatric Psychiatric: Denies depression Endocrine Endocrinology: Denies polydipsia or polyuria EXAM Physical Exam Const Vital Signs: 01/26/21 04:34 Temperature 96.4 F L Temperature Source Temporal Pulse Rate 88 Respiratory Rate 16 Blood Pressure 186/77 H Blood Pressure Mean 113 Pulse Ox 100 Oxygen Delivery Method Room Air Positive well nourished and well developed General Appearance ED: well developed HEENT Negative for trauma Eyes EOMs intact bilaterally Neck supple Resp normal respiratory effort and clear to auscultation bilaterally Cardio regular rate and regular rhythm GI normal to inspection, nondistended, normoactive bowel sounds, non-tender and non-distended Palpation: soft Back/Spine General Back: Negative for CVA tenderness Extremity normal to inspection General Extremety ED: Negative for tenderness Neuro oriented x3, CN's II-XII intact bilaterally and no sensory deficits noted Sensorium / Orientation: alert Motor Exam: Negative for general weakness Psych mental status grossly normal Skin no rashes or lesions noted MDM MDM MDM Narrative Medical decision making narrative: Patient reports decreased urine output. She is concerned about her kidney function. She has a history of CKD. I rechecked her BMP. It showed a normal creatinine, but her sodium was 116. She was told at one point that she has a low sodium, but she never followed up about this. She thought it might be related to her diet. Her recent labs showed a normal sodium. I did add on further blood work and urine testing. She seems to be euvolemic. She has slightly increased her urine, but it does not sound like she has polydipsia. No history of cancer. No history of complications from low sodium that she is aware of. She is on HCTZ Urinalysis does show signs of infection. Cultures were done. She was treated with Rocephin. Hospitalist was contacted for inpatient care. She is currently stable Lab Data Attestation: I reviewed the patient's lab results. Labs: Laboratory Results - last 24 hr 01/26/21 01/26/21 04:45 04:50 Sodium 116 L* Potassium 3.8 Chloride 81 L Carbon Dioxide 25.0 Anion Gap 10 BUN 16 Creatinine 1.00 Estim Creat Clear Calc 35.99 Est GFR (MDRD) Af Amer 70 Est GFR (MDRD) Non-Af 58 L BUN/Creatinine Ratio 16.0 Glucose 110 H Calcium 8.7 Urine Color Yellow Urine Clarity Sl. Cloudy Urine pH 5.0 Ur Specific [place] 1.020 Urine Protein 30 H Urine Glucose (UA) Normal Urine Ketones 50 H Urine Occult Blood 50 H Urine Nitrite Negative Urine Bilirubin Negative Urine Urobilinogen Normal Ur Leukocyte Esterase 500 H Urine RBC 0-5 SEEN Urine WBC 5-10 SEEN Ur Squamous Epith Cells 0-5 SEEN Urine Bacteria 0 SEEN Urine Mucus 0 SEEN Discharge Plan Triage Chief Complaint: Complaint ED Provider: Santiago Thapa Dx/Rx/DC Orders Clinical Impression: Acute hyponatremia, Acute UTI Prescriptions: No Action Caltrate 600 plus D 600 mg (1,500 mg)-800 unit tablet,chewable 2 tab PO DAILY RF: 0 One-A-Day Women's 50 Plus 400-20 mcg tablet 1 tab PO DAILY RF: 0 hydrochlorothiazide 12.5 mg tablet 12.5 mg PO QAM RF: 0 urea [WILMRE-Urea] 45 % gel 1 applic TOPICAL DAILY RF: 0 ropinirole 0.5 MG tablet 0.5 mg PO QHS RF: 0 aspirin 81 MG tablet,chewable 81 mg PO DAILY RF: 0 loratadine 10 MG tablet 10 mg PO DAILY RF: 0 ibandronate 150 MG tablet 150 mg PO QMONTH RF: 0 peg 400-propylene glycol (PF) 1 EACH dropperette 1 ea OP PRN PRN (Reason: Dry Eyes) RF: 0 lisinopril 40 mg tablet 40 mg PO DAILY Qty: 30 RF: 11 Primary Care Provider: Kayden Berg Referrals: Kayden Berg MD [Primary Care Provider] -
[2021-01-26 05:39] LABS: Absolute Lymphocyte Count 1.14 X10^3/uL (0.83-4.51); Absolute Neutrophil Count 6.9 X10^3/uL (2.0-7.7); Basophil# 0.03 X10^3/uL; Basophil% 0.3 % (0-1); Eosinophil# 0.03 X10^3/uL; Eosinophils% 0.3 % (0-5); Hematocrit 30.5 % (37-47); Hemoglobin 10.4 g/dL (12.0-15.0); Lymphocyte # 1.14 X10^3/ul (0.83-4.51); Lymphocyte % 13.2 % (19-41); Mean Corp Hgb Conc 34.1 g/dL (32-36); Mean Corpuscular Hgb 29.7 pg (27.0-32.0); Mean Corpuscular Volume 87.1 fL (81-99); Mean Platelet Vol. 12.3 fl (6.2-12.0); Monocyte% 5.8 % (0-10); NRBC Flagged by Analyzer 0 % (0-5); Neutrophil # 6.92 X10^3/uL (2.7-7.7); Neutrophil % 80.3 % (47-70); Platelet Count 154 K/mm3 (150-450); RBC Distribution Width CV 11.2 % (11.6-14.6); RBC Distribution Width SD 35.8 fl (35.1-43.9); White Blood Count 8.6 K/mm3 (4.4-11.0)
[2021-01-26] MEDS: Ceftriaxone 1 GM/50 ML BAG IV (06:00)
[2021-01-26] MEDS: 0.9% Normal Saline 1,000 ML 250 ML IV (06:00)
[2021-01-26 06:10] LABS: Urine Sodium 42 mmol/L (Not Establ.)
[2021-01-26 06:11] LABS: Osmolality, Urine 283 mOsm/KG
[2021-01-26 06:11] LABS: Osmolality, Serum 245 mOsm/KG (280-301)
--- NOTE | 2021-01-26 06:11 | HP.PCM.HOS_ITS ---
[facility] - General General Date of Admission: 01/26/21 Chief Complaint: Decreased urine output [facility] Narrative LIA GTZ, is a 75 F with a significant history of hypertension; and restless leg syndrome who presents patient presents for decreased urine output. Patient thinks that her symptoms started less than a week ago.. She thought there might be something wrong with her kidneys. She has a history of kidney stones but is not aware of any other kidney disease. She is denying any other urinary symptoms like dysuria, hematuria, or frequency. She reported on 01/20/2021 she saw her PCP who diagnosed her with IBS. [facility] Medical History Anemia Anxiety and depression Arthritis Back pain Cataracts, bilateral Difficulty balancing Fatigue GERD (gastroesophageal reflux disease) Hearing problem Hemorrhoids High cholesterol History of pneumonia HTN (hypertension) Hypertensive urgency Hypoglycemia Incontinence Irritable bowel syndrome (IBS) Kidney stone Knee pain Limb weakness Lipoma Osteopenia Restless leg syndrome Seasonal allergies Shoulder pain Sleep apnea treated with nocturnal BiPAP SOB (shortness of breath) Vision problems Vitamin deficiency Home Medications aspirin 81 mg PO DAILY 12/02/16 [History Last Taken Unknown] ropinirole 0.5 mg PO QHS 12/02/16 [History Last Taken Unknown] ibandronate 150 mg PO QMONTH 05/01/19 [History Last Taken Unknown] loratadine 10 mg PO DAILY 05/01/19 [History Last Taken Unknown] calcium carbonate 600 mg(1,500 mg)-vitamin D3 800 unit chewable tablet 2 tab PO DAILY tab 05/22/19 [History Last Taken Unknown] pjxteccfuetw-okerxzmf-toaodae-folic acid 400 mcg-vit K1 20 mcg tablet 1 tab PO DAILY tab 05/22/19 [History Last Taken Unknown] peg 400-propylene glycol (PF) 1 ea OP PRN PRN 11/04/19 [History Last Taken Unknown] lisinopril 40 mg tablet 40 mg PO DAILY #30 tab 04/08/20 [Rx Last Taken Unknown] hydrochlorothiazide 12.5 mg tablet 12.5 mg PO QAM 08/17/20 [History Last Taken Unknown] urea 45 % topical gel 1 applic TOPICAL DAILY ml 08/17/20 [History Last Taken Unknown] Allergy/AdvReac Type Severity Reaction Status Date / Time cigarette smoke Allergy Unknown Verified 01/26/21 04:47 erythromycin base Allergy Vomiting Verified 01/26/21 04:47 grass pollen Allergy Unknown Verified 01/26/21 04:47 azithromycin AdvReac Vomiting Verified 01/26/21 04:47 Latex, Natural Rubber AdvReac Rash Verified 01/26/21 04:47 Family History Father Myocardial infarction Respiratory disease Mother CVA (cerebral vascular accident) Brain tumor History of blood clots Bowel disease Anxiety and depression Epilepsy Hormone deficiency Seizures Allergy to antibiotic Daughter defect Sister Heart disease Rheumatic fever Other Tuberculosis Surgical History History of neck surgery History of nephrolithotomy with removal of calculi Lipoma Social History Smoking Status: Never smoker alcohol intake: never substance use type: does not use additional social history: DOES USE ASPIRIN DOES NOT USE IBUPROFEN ROS ROS Narrative 12 point review of system is negative except as in HPI. Vital Signs Vital Signs Vital Signs: 01/26/21 04:34 01/26/21 06:01 Temperature 96.4 F L 97.5 F L Temperature Source Temporal Oral Pulse Rate 88 78 Respiratory Rate 16 16 Blood Pressure 186/77 H 167/72 H Blood Pressure Mean 113 103 Pulse Ox 100 100 Oxygen Delivery Method Room Air Room Air Physical Exam Narrative Alert and oriented x3 Nontraumatic; normocephalic Lung clear to auscultate Heart sounds S1-S2. No murmur, gallop or rubs. Abdomen bowel sounds present soft, nontender nondistended Extremity without edema cyanosis or clubbing. Lab / Micro Data Result Diagrams: 01/26/21 Unknown 01/26/21 04:50 Labs: Laboratory Results - last 24 hr 01/26/21 01/26/21 01/26/21 04:45 04:50 05:45 WBC RBC Hgb Hct MCV MCH MCHC RDW Std Deviation RDW Coeff of Keven Plt Count MPV Immature Gran % (Auto) Neut % (Auto) Lymph % (Auto) Maury % (Auto) Eos % (Auto) Baso % (Auto) Absolute Neuts (auto) Absolute Lymphs (auto) Nucleated RBC % Sodium 116 L* Potassium 3.8 Chloride 81 L Carbon Dioxide 25.0 Anion Gap 10 BUN 16 Creatinine 1.00 Estim Creat Clear Calc 35.99 Est GFR (MDRD) Af Amer 70 Est GFR (MDRD) Non-Af 58 L BUN/Creatinine Ratio 16.0 Glucose 110 H Serum Osmolality 245 L Calcium 8.7 Urine Color Yellow Urine Clarity Sl. Cloudy Urine pH 5.0 Ur Specific [place] 1.020 Urine Protein 30 H Urine Glucose (UA) Normal Urine Ketones 50 H Urine Occult Blood 50 H Urine Nitrite Negative Urine Bilirubin Negative Urine Urobilinogen Normal Ur Leukocyte Esterase 500 H Urine RBC 0-5 SEEN Urine WBC 5-10 SEEN Ur Squamous Epith Cells 0-5 SEEN Urine Bacteria 0 SEEN Urine Mucus 0 SEEN Urine Osmolality Ur Random Sodium 01/26/21 01/26/21 05:50 Unknown WBC 8.6 RBC 3.50 L Hgb 10.4 L Hct 30.5 L MCV 87.1 MCH 29.7 MCHC 34.1 RDW Std Deviation 35.8 RDW Coeff of Keven 11.2 L Plt Count 154 MPV 12.3 H Immature Gran % (Auto) 0.100 Neut % (Auto) 80.3 H Lymph % (Auto) 13.2 L Maury % (Auto) 5.8 Eos % (Auto) 0.3 Baso % (Auto) 0.3 Absolute Neuts (auto) 6.9 Absolute Lymphs (auto) 1.14 Nucleated RBC % 0 Sodium Potassium Chloride Carbon Dioxide Anion Gap BUN Creatinine Estim Creat Clear Calc Est GFR (MDRD) Af Amer Est GFR (MDRD) Non-Af BUN/Creatinine Ratio Glucose Serum Osmolality Calcium Urine Color Urine Clarity Urine pH Ur Specific [place] Urine Protein Urine Glucose (UA) Urine Ketones Urine Occult Blood Urine Nitrite Urine Bilirubin Urine Urobilinogen Ur Leukocyte Esterase Urine RBC Urine WBC Ur Squamous Epith Cells Urine Bacteria Urine Mucus Urine Osmolality 283 Ur Random Sodium 42 Assessment & Plan Assessment/Plan (1) Acute hyponatremia: (2) Acute UTI: (3) HTN (hypertension): QUALIFIERS: Hypertension type: essential hypertension Qualified Code(s): I10 - Essential (primary) hypertension PLAN: Acute hyponatremia Emergency department labs reviewed showed a serum sodium of 116; and serum chloride of 81. Urine and serum osmolality were ordered at the emergency department; follow. Urine sodium was ordered emergency department; follow. Will order a.m. cortisol and TSH. Patient was started on normal saline to 100 mL/h the emergency department. We will decrease infusion to normal saline 100 mL/h. BMP every 4 hours. Hold home hydrochlorothiazide Acute UTI Emergency department labs were reviewed. Urine was abnormal. Started on ceftriaxone emergency department and continued. Trend CBC. Urine culture was ordered emergency department; follow Hypertension Blood pressure is not within goal Lisinopril continued. Trend blood pressure and adjust blood pressure medications. As needed hydralazine ordered DVT prophylaxis Subcutaneous Lovenox ordered.
--- NOTE | 2021-01-26 06:45 | NURSING ---
[address] DR ROMAN HYPONATREMIA, UTI
--- NOTE | 2021-01-26 10:05 | CASEMGMT ---
JOEL TOURE Assessment: Face to Face with pt for initial transition planning/care coordination assessment. JOEL TOURE introduced self and role at [facility], pt voices understanding and consents to assessment. Pt is A/O x4 and answers all questions appropriately at this time. Pt sitting up in bed in no distress. Care providers, pharmacy, and demographics verified/updated. Admitting Dx: hyponatremia, acute cysitis PCP: [facility] Specialists: Rolan, cardio; Yuki, pod; Danay, surgeon; Amna, chiro Preferred Pharmacy: [facility] Insurance: [employer] Prescription Benefit: yes LW/HPOA: Pt has a LW/DPOA and it is on file at [facility]. Pt DPOA is son Haim Velasquez. LNOK: Haim Velasquez, son; Frances Dale dtr Living Arrangements: Pt lives in a ground level apt with no steps to enter. Pt states she is I in ADL's and denies concerns at home. Transportation: Pt drives self and denies concerns with transportation. DME/HHC/SNF: Pt reports she has a cane, rollator (needs put together), walk in shower, shower chair and grab bar in the bathroom. Pt has her [employer] nurse who visits once a year. She had [employer] for vacuuming and small household tasks but stopped d/t staffing. Plan is to resume. Pt was getting [facility] but states the timing of the delivery did not work for her so she stopped them. Denies any HHC or SNF stays. Pt states no concerns with going home at time of dc. Pt states no further concerns/needs. CM to follow. Advised pt to ask CM if any further question/concerns/needs arise, voices understanding. Pt Goal: Home Plan: Home
[2021-01-26] MEDS: 0.9% Normal Saline 1,000 ML 100 ML IV ×2 (10:22→19:55)
[2021-01-26 10:35] LABS: Anion Gap 6 (5-15); BUN 14 mg/dL (7-18); BUN/Creat Ratio 14.4 RATIO (10-20); Calcium,Total 8.7 mg/dL (8.5-10.1); Chloride 89 mmol/L (98-107); Creatinine, Serum 0.98 mg/dL (0.55-1.02); EST Glomerular Filtration Rate 60 mL/min (>60); Est Glom Filt Rate - Afr Amer 72 mL/min (>60); Estimated Creatinine Clearance 36.72 ml/min; Glucose 91 mg/dL (74-106); Sodium Level 123 mmol/L (136-145); Thyroid Stim Hormone (TSH) 1.25 uIU/mL (0.358-3.74)
[2021-01-26] MEDS: Aspirin 81 MG TAB.CHEW PO (11:55)
[2021-01-26] MEDS: Loratadine 10 MG Tablet PO (11:55)
[2021-01-26] MEDS: Lisinopril 40 MG Tablet PO (11:56)
--- NOTE | 2021-01-26 12:12 | CASEMGMT ---
Patient has a Healthcare Power of Tailor Garment Fitter and a Healthcare Living Will on file at [facility]. Her son Haim Velasquez is her Healthcare Power of Tailor Garment Fitter. Jess Dumont HEAD GOLF COACH SALLY
[2021-01-26 15:27] LABS: Anion Gap 9 (5-15); BUN 12 mg/dL (7-18); BUN/Creat Ratio 12.4 RATIO (10-20); Calcium,Total 8.3 mg/dL (8.5-10.1); Chloride 93 mmol/L (98-107); Creatinine, Serum 0.97 mg/dL (0.55-1.02); EST Glomerular Filtration Rate 60 mL/min (>60); Est Glom Filt Rate - Afr Amer 73 mL/min (>60); Glucose 89 mg/dL (74-106); Potassium 3.5 mmol/L (3.5-5.1); Sodium Level 126 mmol/L (136-145)
[2021-01-26 18:46] LABS: Anion Gap 6 (5-15); BUN 11 mg/dL (7-18); BUN/Creat Ratio 11.3 RATIO (10-20); Calcium,Total 8.8 mg/dL (8.5-10.1); Chloride 98 mmol/L (98-107); Creatinine, Serum 0.97 mg/dL (0.55-1.02); EST Glomerular Filtration Rate 60 mL/min (>60); Est Glom Filt Rate - Afr Amer 72 mL/min (>60); Glucose 90 mg/dL (74-106); Potassium 3.7 mmol/L (3.5-5.1); Sodium Level 130 mmol/L (136-145)
--- NOTE | 2021-01-26 18:46 | PCM.HOSP.N ---
Hospitalist Note Patient was seen and examined today briefly, her sodium has corrected somewhat today, I will repeat her BMP tomorrow. I suspect that this hyponatremia is due to her use of diuretics as an outpatient.
[2021-01-26] MEDS: Pramipexole Di-HCl 0.25 MG Tablet PO (21:01)
[2021-01-27 03:00] VITALS: PULSE 66
[2021-01-27 03:07] VITALS: BP 117/54; PULSE 73; RESP 17; TEMP 36.6; O2SAT 100
[2021-01-27 05:00] LABS: Absolute Lymphocyte Count 1.73 X10^3/uL (0.83-4.51); Absolute Neutrophil Count 2.4 X10^3/uL (2.0-7.7); Basophil# 0.03 X10^3/uL; Basophil% 0.7 % (0-1); Eosinophil# 0.04 X10^3/uL; Eosinophils% 0.9 % (0-5); Hematocrit 27.4 % (37-47); Hemoglobin 9.5 g/dL (12.0-15.0); Lymphocyte # 1.73 X10^3/ul (0.83-4.51); Lymphocyte % 37.7 % (19-41); Mean Corp Hgb Conc 34.7 g/dL (32-36); Mean Corpuscular Hgb 31.8 pg (27.0-32.0); Mean Corpuscular Volume 91.6 fL (81-99); Mean Platelet Vol. 11.3 fl (6.2-12.0); Monocyte# 0.38 X10^3/uL; Monocyte% 8.3 % (0-10); NRBC Flagged by Analyzer 0 % (0-5); Neutrophil # 2.41 X10^3/uL (2.7-7.7); Neutrophil % 52.4 % (47-70); Platelet Count 232 K/mm3 (150-450); RBC Distribution Width CV 11.6 % (11.6-14.6); RBC Distribution Width SD 39.1 fl (35.1-43.9); Red Blood Count 2.99 M/mm3 (4.2-5.4); White Blood Count 4.6 K/mm3 (4.4-11.0)
[2021-01-27] MEDS: Ceftriaxone 1 GM/50 ML BAG IV (05:00)
[2021-01-27 05:20] LABS: Anion Gap 8 (5-15); BUN 12 mg/dL (7-18); BUN/Creat Ratio 13.5 RATIO (10-20); Calcium,Total 8.1 mg/dL (8.5-10.1); Chloride 104 mmol/L (98-107); Creatinine, Serum 0.89 mg/dL (0.55-1.02); EST Glomerular Filtration Rate 66 mL/min (>60); Est Glom Filt Rate - Afr Amer 80 mL/min (>60); Estimated Creatinine Clearance 40.44 ml/min; Glucose 90 mg/dL (74-106); Iron 38 ug/dL (50-170); Potassium 3.7 mmol/L (3.5-5.1); Sodium Level 135 mmol/L (136-145)
[2021-01-27 07:00] VITALS: PULSE 67
[2021-01-27 07:12] VITALS: O2SAT 95
[2021-01-27] MEDS: 0.9% Normal Saline 1,000 ML 75 ML IV (07:21)
[2021-01-27] MEDS: Multivitamins,Therapeutic Tablet 1 TABLET PO (08:31)
[2021-01-27] MEDS: Aspirin 81 MG TAB.CHEW PO (08:31)
[2021-01-27] MEDS: Loratadine 10 MG Tablet PO (08:32)
[2021-01-27] MEDS: Lisinopril 40 MG Tablet PO (08:32)
[2021-01-27 08:45] VITALS: BP 124/56; PULSE 75; RESP 16; TEMP 36.6; O2SAT 100
--- NOTE | 2021-01-27 11:16 | PCM.DC ---
Discharge Instructions Follow Up Care Test Results: Test results from this visit will be discussed in further detail at your follow-up appointment, if applicable. Discharge Plan Admission Admit Date/Time: 01/26/21 06:21 Primary Reason for Your Visit: low sodium, bladder infection Attending Provider: Devon Vivas Primary Care Provider: Kayden Berg Discharge Orders/Prescriptions Prescriptions: Continued Caltrate 600 plus D 600 mg (1,500 mg)-800 unit tablet,chewable 1 tab PO DAILY RF: 0 One-A-Day Women's 50 Plus 400-20 mcg tablet 1 tab PO DAILY RF: 0 urea [WILMER-Urea] 45 % gel 1 applic TOPICAL DAILY RF: 0 ropinirole 0.5 MG tablet 0.5 mg PO QHS RF: 0 aspirin 81 MG tablet,chewable 81 mg PO DAILY RF: 0 loratadine 10 MG tablet 10 mg PO DAILY RF: 0 ibandronate 150 MG tablet 150 mg PO QMONTH RF: 0 peg 400-propylene glycol (PF) 1 EACH dropperette 1 ea OP PRN PRN (Reason: Dry Eyes) RF: 0 lisinopril 40 mg tablet 40 mg PO DAILY Qty: 30 RF: 11 Discontinued hydrochlorothiazide 12.5 mg tablet 12.5 mg PO QAM RF: 0 Referrals / Follow Up: Kayden Berg MD [Primary Care Provider] - In 1 Week Disposition Disposition (needs filled in before D/C Order can be placed): Home, self care
--- NOTE | 2021-01-27 12:32 | PHA.DC.MR ---
Pharmacy Service has performed discharge medication reconciliation for this patient. The patient's discharge medication list was reviewed for discrepancies and discrepancies were resolved. Home Medications aspirin 81 mg PO DAILY 12/02/16 ropinirole 0.5 mg PO QHS 12/02/16 ibandronate 150 mg PO QMONTH 05/01/19 loratadine 10 mg PO DAILY 05/01/19 calcium carbonate 600 mg(1,500 mg)-vitamin D3 800 unit chewable tablet 1 tab PO DAILY tab 05/22/19 onbhnhazkogf-shhdposf-vjrghky-folic acid 400 mcg-vit K1 20 mcg tablet 1 tab PO DAILY tab 05/22/19 peg 400-propylene glycol (PF) 1 ea OP PRN PRN 11/04/19 lisinopril 40 mg tablet 40 mg PO DAILY #30 tab 04/08/20 urea 45 % topical gel 1 applic TOPICAL DAILY ml 08/17/20
[2021-01-27] MEDS: Bisacodyl 10 MG Suppository RC (13:01)
[2021-01-27 14:40] VITALS: BP 94/47; PULSE 73; RESP 16; TEMP 36.4; O2SAT 98
--- NOTE | 2021-01-27 16:13 | NURSING ---
Patient discharged to home via wheelchair. Discharge instructions given.
--- NOTE | 2021-01-30 17:13 | PCM.DC.SUM ---
Providers Date of Admission: 01/26/21 Date of Discharge: 01/27/21 Primary Care Physician: Dr. Kayden Berg MD Reason For Visit: HYPONATREMIA; ACUTE CYSTITIS Diagnosis Discharge Diagnosis (1) Acute hyponatremia: Status: Acute Code(s): E87.1 - Hypo-osmolality and hyponatremia (2) Acute UTI: Status: Acute Code(s): N39.0 - Urinary tract infection, site not specified (3) HTN (hypertension): Status: Chronic Code(s): I10 - Essential (primary) hypertension Qualifiers: Hypertension type: essential hypertension Qualified Code(s): I10 - Essential (primary) hypertension Plan: 1. Hyponatremia secondary to diuretic usage #2 chronic iron deficiency anemia #3 essential hypertension Acute cystitis was ruled out Medications at Discharge Home Medications aspirin 81 mg PO DAILY 12/02/16 ropinirole 0.5 mg PO QHS 12/02/16 ibandronate 150 mg PO QMONTH 05/01/19 loratadine 10 mg PO DAILY 05/01/19 calcium carbonate 600 mg(1,500 mg)-vitamin D3 800 unit chewable tablet 1 tab PO DAILY tab 05/22/19 gefpdnvnrhtz-yndrlfqf-fgokrja-folic acid 400 mcg-vit K1 20 mcg tablet 1 tab PO DAILY tab 05/22/19 peg 400-propylene glycol (PF) 1 ea OP PRN PRN 11/04/19 lisinopril 40 mg tablet 40 mg PO DAILY #30 tab 04/08/20 urea 45 % topical gel 1 applic TOPICAL DAILY ml 08/17/20 Hospital Course Operations None Procedures None Summary of Care Provided Minutes Spent on Discharge: 31 Hospital Course: 75-year-old white female was seen in the emergency room at [facility] with a chief complaint of decreased urine output. Patient denied any urinary frequency or dysuria. Labs obtained in the ER were remarkable for sodium of 116, urinalysis showed urine leukocyte Estrace but no bacteria and 5-10 WBCs, there were squamous epithelial cells seen on the urinalysis. Patient CBC was remarkable for hemoglobin of 10.4. Patient was felt to be hyponatremic secondary to diuretic usage, she was admitted to PCU and given IV normal saline and her diuretics were held. Patient's sodium adjusted in a short period of time, urine culture grew out mixed organisms suggestive of contamination. Patient was given a short course of antibiotics during her hospitalization was was not felt to have a cystitis at the time of discharge home. Patient had a serum iron drawn that indicated low iron and the patient was given IV Venofer. Patient was instructed to get cntn-rbc-gyftlqg iron tablets at the time of discharge from the hospital on her home-going instructions. On 01/27/2021, patient was seen and examined: On examination she appeared in good health and spirits, she does not appear to be in any distress. Vital signs as documented. Skin warm and dry and without overt rashes. Neck without JVD, thyroid appears normal, trachea is midline, neck is supple. Lungs clear, normal air movement was noted. Heart exam notable for regular rhythm, normal sounds and absence of murmurs, rubs or gallops. Abdomen unremarkable and without evidence of organomegaly, masses, or abdominal aortic enlargement, bowel sounds are present in all 4 quadrants, no abdominal tenderness was noted. Extremities nonedematous, no cyanosis was noted, no clubbing was noted. Neuro: Cranial nerves II through XII are grossly intact, no focal motor deficits were noted, sensation to light touch and pinprick is intact, motor exam 5/5 throughout. Psych: Patient is alert and oriented x3, she does not appear anxious or depressed, she does not appear agitated. Patient appears stable for discharge home on 01/27/2021. ABG / Lab / Microbiology Data Result Diagrams: 01/27/21 04:45 01/27/21 04:45 Microbiology: Microbiology 01/26/21 04:45 Urine, Random Urine Culture - Final Mixed Gram Positive Organisms Meaningful Use Info Meaningful Use Diagnoses (Choose all that apply): None applicable Discharge Plan Admission Admit Date/Time: 01/26/21 06:21 Primary Reason for Your Visit: low sodium, bladder infection Attending Provider: Devon Vivas Primary Care Provider: Kayden Berg Discharge Orders/Prescriptions Prescriptions: Continued Caltrate 600 plus D 600 mg (1,500 mg)-800 unit tablet,chewable 1 tab PO DAILY RF: 0 One-A-Day Women's 50 Plus 400-20 mcg tablet 1 tab PO DAILY RF: 0 urea [WILMER-Urea] 45 % gel 1 applic TOPICAL DAILY RF: 0 ropinirole 0.5 MG tablet 0.5 mg PO QHS RF: 0 aspirin 81 MG tablet,chewable 81 mg PO DAILY RF: 0 loratadine 10 MG tablet 10 mg PO DAILY RF: 0 ibandronate 150 MG tablet 150 mg PO QMONTH RF: 0 peg 400-propylene glycol (PF) 1 EACH dropperette 1 ea OP PRN PRN (Reason: Dry Eyes) RF: 0 lisinopril 40 mg tablet 40 mg PO DAILY Qty: 30 RF: 11 Discontinued hydrochlorothiazide 12.5 mg tablet 12.5 mg PO QAM RF: 0 Referrals / Follow Up: Kayden Berg MD [Primary Care Provider] - In 1 Week Disposition Disposition (needs filled in before D/C Order can be placed): Home, self care Visit Charges Inpatient E&M: 28729 Disch Hosp
== END 2021-01-27 16:10 | disposition home or self-care (01) | DRG 641 ==
LOC: ED 05:52 → PCU 06:40
PROVIDERS: Admitting Provider Hospitalist; Emergency Provider Emergency Medicine; PCP Family Medicine; Visit Provider Internal Medicine
DX: E87.1 Hypo-osmolality and hyponatremia (principal); N39.0 Urinary tract infection, site not specified; I10 Essential (primary) hypertension; D50.9 Iron deficiency anemia, unspecified; Z87.442 Personal history of urinary calculi; Z82.3 Family history of stroke; Z82.49 Family history of ischemic heart disease and other diseases of the circulatory system; Z86.718 Personal history of other venous thrombosis and embolism; Z87.01 Personal history of pneumonia (recurrent); Z88.1 Allergy status to other antibiotic agents; F32.9 Major depressive disorder, single episode, unspecified; F41.9 Anxiety disorder, unspecified; K58.9 Irritable bowel syndrome, unspecified; E78.00 Pure hypercholesterolemia, unspecified
CPT/HCPCS: 36415; 72110; 80048; 81001; 83540; 83930; 83935; 84300; 84443; 85025; 87086; 87088; 99285; J7030; J7050; A4216; J2916

== ENCOUNTER → 2021-01-30 16:53 | Outpatient (CLI) | payer MEDICARE, SELFPAY ==
[2021-01-26 07:54] VITALS: BMI 26.3
[2021-01-30 17:31] LABS: Absolute Lymphocyte Count 1.33 X10^3/uL (0.83-4.51); Absolute Neutrophil Count 3.8 X10^3/uL (2.0-7.7); Basophil# 0.03 X10^3/uL; Basophil% 0.5 % (0-1); Eosinophil# 0.06 X10^3/uL; Eosinophils% 1.1 % (0-5); Hematocrit 29.7 % (37-47); Hemoglobin 9.8 g/dL (12.0-15.0); Lymphocyte # 1.33 X10^3/ul (0.83-4.51); Lymphocyte % 23.6 % (19-41); Mean Corpuscular Hgb 30.9 pg (27.0-32.0); Mean Corpuscular Volume 93.7 fL (81-99); Mean Platelet Vol. 11.2 fl (6.2-12.0); Monocyte# 0.42 X10^3/uL; Monocyte% 7.5 % (0-10); NRBC Flagged by Analyzer 0 % (0-5); Neutrophil # 3.78 X10^3/uL (2.7-7.7); Neutrophil % 67.1 % (47-70); Platelet Count 255 K/mm3 (150-450); RBC Distribution Width SD 41.5 fl (35.1-43.9); Red Blood Count 3.17 M/mm3 (4.2-5.4); White Blood Count 5.6 K/mm3 (4.4-11.0)
[2021-01-30 18:24] LABS: Anion Gap 6 (5-15); BUN 7 mg/dL (7-18); BUN/Creat Ratio 6.7 RATIO (10-20); Calcium,Total 9.1 mg/dL (8.5-10.1); Chloride 99 mmol/L (98-107); Creatinine, Serum 1.04 mg/dL (0.55-1.02); EST Glomerular Filtration Rate 55 mL/min (>60); Est Glom Filt Rate - Afr Amer 67 mL/min (>60); Glucose 88 mg/dL (74-106); Potassium 3.5 mmol/L (3.5-5.1); Sodium Level 134 mmol/L (136-145)
== END ==
PROVIDERS: PCP Family Medicine; Referring Provider Family Medicine; Visit Provider Family Medicine
DX: D64.9 Anemia, unspecified (principal); E87.1 Hypo-osmolality and hyponatremia
CPT/HCPCS: 36415; 80048; 85025

== ENCOUNTER → 2021-02-02 12:05 | Outpatient (CLI) | payer MEDICARE, SELFPAY ==
[2021-01-26 07:54] VITALS: BMI 26.3
[2021-02-02 15:24] LABS: Anion Gap 8 (5-15); BUN 9 mg/dL (7-18); BUN/Creat Ratio 7.8 RATIO (10-20); Calcium,Total 9.1 mg/dL (8.5-10.1); Chloride 99 mmol/L (98-107); Creatinine, Serum 1.15 mg/dL (0.55-1.02); EST Glomerular Filtration Rate 49 mL/min (>60); Est Glom Filt Rate - Afr Amer 60 mL/min (>60); Glucose 101 mg/dL (74-106); Potassium 3.5 mmol/L (3.5-5.1); Sodium Level 133 mmol/L (136-145)
[2021-02-17 12:38] LABS: Anion Gap 9 (5-15); BUN 15 mg/dL (7-18); BUN/Creat Ratio 10.3 RATIO (10-20); Calcium,Total 9.1 mg/dL (8.5-10.1); Chloride 95 mmol/L (98-107); Cholesterol 209 mg/dL (200); Creatinine, Serum 1.45 mg/dL (0.55-1.02); EST Glomerular Filtration Rate 38 mL/min (>60); Est Glom Filt Rate - Afr Amer 46 mL/min (>60); Glucose 128 mg/dL (74-106); High Density Lipoprotein 73 mg/dL; Potassium 4.2 mmol/L (3.5-5.1); Sodium Level 128 mmol/L (136-145); Triglycerides 70 mg/dL; Very Low Density Lipoprotein 14 mg/dL (5-40)
== END ==
PROVIDERS: PCP Family Medicine; Referring Provider Family Medicine; Visit Provider Family Medicine
DX: E87.1 Hypo-osmolality and hyponatremia (principal); R30.0 Dysuria
CPT/HCPCS: 36415; 80048; 80061; 87077; 87086; 87088

== ENCOUNTER → 2021-02-14 12:33 | Outpatient (CLI) | payer MEDICARE, SELFPAY ==
[2021-01-26 07:54] VITALS: BMI 26.3
--- NOTE | 2021-02-14 12:38 | US_ITS ---
STUDY: RENAL ULTRASOUND - COMPLETE REASON FOR EXAM: Female, 75 years old. URINARY RETENTION TECHNIQUE: Ultrasound evaluation of the kidneys was performed with real-time and static cooper-scale imaging. COMPARISON: None. FINDINGS: The right kidney measures 7.6 x 4.0 x 3.4 cm and the left kidney measures 7.2 x 3.8 x 4.9 cm. There is no hydronephrosis on either side. Bilateral renal cortical thinning is seen. There is a 1.4 x 1.0 cm septated cyst in the left kidney. The urinary bladder contains approximately 41 cc of urine. Bilateral ureteral jets were noted. US/Kidney and Bladder IMPRESSION: No hydronephrosis on either side. Mild to moderate atrophy of the bilateral kidneys with bilateral renal cortical thinning. Electronically Signed: Hai Bernstein MD at 16:03 EDT Tel , Service support ,
== END ==
PROVIDERS: PCP Family Medicine; Referring Provider Urology; Visit Provider Urology
DX: R33.9 Retention of urine, unspecified (principal)
CPT/HCPCS: 76770

== ENCOUNTER → 2021-02-17 10:31 | Outpatient (CLI) | payer MEDICARE, SELFPAY ==
[2021-02-15 09:59] VITALS: BMI 24.8
== END ==
PROVIDERS: PCP Family Medicine; Referring Provider Family Medicine; Visit Provider Family Medicine
DX: I10 Essential (primary) hypertension (principal); E87.1 Hypo-osmolality and hyponatremia

== ENCOUNTER 2021-02-22 05:00 | Emergency (ER) | payer MEDICARE, SELFPAY ==
[2021-02-15 09:59] VITALS: BMI 24.8
[2021-02-22 05:03] VITALS: BP 151/65; PULSE 98; RESP 20; TEMP 36.8; O2SAT 89; BMI 24.1
[2021-02-22] MEDS: 0.9% Normal Saline 1,000 ML 150 ML IV (05:52)
--- NOTE | 2021-02-22 05:55 | EX.ED.DYSGE1 ---
HPI History of Present Illness Chief Complaint: General Illness Informant: patient Narrative Narrative: Patient presents to the ED by EMS at approximately 4 AM because she is feeling constipated and she is concerned about her low sodium. States she was recently in the hospital and notified that her sodium was low, she was discharged and had it repeated recently, she received a phone call yesterday saying that it was still low. She has not discussed or followed up with her PCP yet to discuss treatment and management of this. She states she feels tired but she is still getting around her apartment without any difficulty. She denies any seizure activity or confusion. She was anemic in the hospital, given IV Venofer and started on oral iron therapy, she usually has a bowel movement every other day or so, now it has been maybe 2 or 3 days. She states she is not extremely uncomfortable but did feel the need to have a bowel movement this morning and was not able. She denies any problems urinating, fevers, chills, cough, shortness of breath, or vomiting. [facility] Medical History Anemia Anxiety and depression Arthritis Back pain Cataracts, bilateral Depression Difficulty balancing Fatigue GERD (gastroesophageal reflux disease) Hearing problem Hemorrhoids High cholesterol History of pneumonia HTN (hypertension) Hypertensive urgency Hypoglycemia Incontinence Irritable bowel syndrome (IBS) Kidney stone Knee pain Limb weakness Lipoma Osteopenia Restless leg syndrome Seasonal allergies Shoulder pain Sleep apnea treated with nocturnal BiPAP SOB (shortness of breath) Vision problems Vitamin deficiency Home Medications aspirin 81 mg PO DAILY 12/02/16 [History Last Taken Unknown] ropinirole 0.5 mg PO QHS 12/02/16 [History Last Taken Unknown] ibandronate 150 mg PO QMONTH 05/01/19 [History Last Taken Unknown] loratadine 10 mg PO DAILY 05/01/19 [History Last Taken Unknown] calcium carbonate 600 mg(1,500 mg)-vitamin D3 800 unit chewable tablet 1 tab PO DAILY tab 05/22/19 [History Last Taken Unknown] xgwzfmpbttob-lciqpeuw-flztpcr-folic acid 400 mcg-vit K1 20 mcg tablet 1 tab PO DAILY tab 05/22/19 [History Last Taken Unknown] peg 400-propylene glycol (PF) 1 ea OP PRN PRN 11/04/19 [History Last Taken Unknown] lisinopril 40 mg tablet 40 mg PO DAILY #30 tab 04/08/20 [Rx Last Taken Unknown] urea 45 % topical gel 1 applic TOPICAL DAILY ml 08/17/20 [History Last Taken Unknown] ferrous sulfate 142 mg (45 mg iron) tablet,extended release 142 mg PO DAILY 02/15/21 [History Last Taken Unknown] Allergy/AdvReac Type Severity Reaction Status Date / Time cigarette smoke Allergy Unknown Verified 02/15/21 10:11 erythromycin base Allergy Vomiting Verified 02/15/21 10:11 grass pollen Allergy Unknown Verified 02/15/21 10:11 azithromycin AdvReac Vomiting Verified 02/15/21 10:11 Latex, Natural Rubber AdvReac Rash Verified 02/15/21 10:11 Family History Father Myocardial infarction Respiratory disease Mother CVA (cerebral vascular accident) Brain tumor History of blood clots Bowel disease Anxiety and depression Epilepsy Hormone deficiency Seizures Allergy to antibiotic Daughter defect Sister Heart disease Rheumatic fever Other Tuberculosis Surgical History History of neck surgery History of nephrolithotomy with removal of calculi Lipoma Social History Smoking Status: Never smoker alcohol intake: never substance use type: does not use additional social history: DOES USE ASPIRIN DOES NOT USE IBUPROFEN ROS ROS ED Constitutional Constitutional ED: Reports fatigue; Denies chills or fever(s) Eyes Eyes: Denies change in vision or diplopia ENT ENT ED: Denies rhinorrhea or sore throat Cardiovascular Cardiovascular: Denies chest pain or palpitations Respiratory/Chest Respiratory/Chest: Denies cough or dyspnea Gastrointestinal Gastrointestinal: Reports as per HPI and constipation; Denies abdominal pain, diarrhea, hemorrhoids, melena, nausea or vomiting Genitourinary Genitourinary ED: Denies dysuria or hematuria Musculoskeletal Musculoskeletal: Denies back pain or neck pain Integumentary Denies abscess or rash Neurologic Neurologic: Denies headache(s), paresthesias or weakness Psychiatric Psychiatric: Reports anxiety; Denies suicidal thoughts EXAM Physical Exam Const Vital Signs: 02/22/21 05:03 02/22/21 05:34 Temperature 98.3 F Temperature Source Oral Pulse Rate 98 Respiratory Rate 20 H Respiratory Effort Normal Respiratory Pattern Normal Blood Pressure 151/65 H Blood Pressure Mean 93 Pulse Ox 89 Oxygen Delivery Method Room Air Positive well nourished and well developed General Appearance ED: well developed and NAD HEENT Reports moist mucous membranes normocephalic and atraumatic Eyes PERRL and EOMs intact bilaterally Neck full ROM and supple Resp normal respiratory effort and clear to auscultation bilaterally Cardio regular rate, regular rhythm and no murmurs Rate: Negative for tachycardic GI non-tender and non-distended Auscultation: normoactive bowel sounds Palpation: soft Back/Spine no CVA tenderness General Back: other FROM Extremity normal to inspection General Extremety ED: Negative for edema, pulses abnormal or tenderness General Extremity: Negative for edema or pulses abnormal Neuro oriented x3, CN's II-XII intact bilaterally and no sensory deficits noted Sensorium / Orientation: awake and alert Motor Exam: strength 5/5 throughout Skin no rashes or lesions noted and no wounds MDM MDM MDM Narrative Medical decision making narrative: When the patient was admitted almost 1 month ago her sodium was 116. At discharge she was in the mid 130s. During her hospital visit it was thought that her hyponatremia was due to diuretic use, so the medication was held and discontinued. 4 or 5 days ago, her level came back at 128. I repeated her chemistry panel this morning, now her Na is 129. Also offered her an enema but she declined, saying that she would rather take the Miralax and docusate that she has at home but hasn't used yet. I do not think she has any emergent intra-abdominal process right now, she does not have any pain or tenderness or nausea/vomiting. She is comfortable with discharge home. Lab Data Attestation: I reviewed the patient's lab results. Labs: Laboratory Results - last 24 hr 02/22/21 05:45 Sodium 129 L Potassium 4.1 Chloride 92 L Carbon Dioxide 26.0 Anion Gap 11 BUN 16 Creatinine 1.38 H Estim Creat Clear Calc 26.08 Est GFR (MDRD) Af Amer 48 L Est GFR (MDRD) Non-Af 40 L BUN/Creatinine Ratio 11.6 Glucose 107 H Calcium 9.4 Discharge Plan Triage Chief Complaint: General Illness ED Provider: Leobardo Woo Dx/Rx/DC Orders Clinical Impression: Constipation, Hyponatremia Instructions: ED Constipation (Adult), ED Hyponatremia Prescriptions: No Action Caltrate 600 plus D 600 mg (1,500 mg)-800 unit tablet,chewable 1 tab PO DAILY RF: 0 One-A-Day Women's 50 Plus 400-20 mcg tablet 1 tab PO DAILY RF: 0 urea [WILMER-Urea] 45 % gel 1 applic TOPICAL DAILY RF: 0 Slow Fe 142 mg (45 mg iron) tablet extended release 142 mg PO DAILY RF: 0 ropinirole 0.5 MG tablet 0.5 mg PO QHS RF: 0 aspirin 81 MG tablet,chewable 81 mg PO DAILY RF: 0 loratadine 10 MG tablet 10 mg PO DAILY RF: 0 ibandronate 150 MG tablet 150 mg PO QMONTH RF: 0 peg 400-propylene glycol (PF) 1 EACH dropperette 1 ea OP PRN PRN (Reason: Dry Eyes) RF: 0 lisinopril 40 mg tablet 40 mg PO DAILY Qty: 30 RF: 11 Primary Care Provider: Kayden Berg Referrals: Kayden Berg MD [Primary Care Provider] - 3-5 Days Activity Restrictions/Additional Instructions: For constipation: Take docusate 1 capsule, twice a day, in addition to MiraLAX 1 capful dissolved in 8 ounces of any liquid once daily. Drink a decent amount of water with this. Disposition Disposition: Home, self care
[2021-02-22 06:06] LABS: Anion Gap 11 (5-15); BUN 16 mg/dL (7-18); BUN/Creat Ratio 11.6 RATIO (10-20); Calcium,Total 9.4 mg/dL (8.5-10.1); Chloride 92 mmol/L (98-107); Creatinine, Serum 1.38 mg/dL (0.55-1.02); EST Glomerular Filtration Rate 40 mL/min (>60); Est Glom Filt Rate - Afr Amer 48 mL/min (>60); Estimated Creatinine Clearance 26.08 ml/min; Glucose 107 mg/dL (74-106); Potassium 4.1 mmol/L (3.5-5.1); Sodium Level 129 mmol/L (136-145)
== END 2021-02-22 06:56 | disposition home or self-care (01) ==
PROVIDERS: Emergency Provider Emergency Medicine; PCP Family Medicine
DX: K59.00 Constipation, unspecified (principal); E87.1 Hypo-osmolality and hyponatremia; E78.00 Pure hypercholesterolemia, unspecified; F32.9 Major depressive disorder, single episode, unspecified; F41.9 Anxiety disorder, unspecified; I10 Essential (primary) hypertension; K21.9 Gastro-esophageal reflux disease without esophagitis; M85.80 Other specified disorders of bone density and structure, unspecified site; Z79.82 Long term (current) use of aspirin
CPT/HCPCS: 80048; 96360; 99285; J7030

== ENCOUNTER → 2021-02-24 08:13 | Outpatient (CLI) | payer MEDICARE, SELFPAY ==
[2021-02-22 05:03] VITALS: BMI 24.1
[2021-02-24 10:24] LABS: Anion Gap 11 (5-15); BUN 17 mg/dL (7-18); BUN/Creat Ratio 11.5 RATIO (10-20); Calcium,Total 8.9 mg/dL (8.5-10.1); Chloride 95 mmol/L (98-107); Creatinine, Serum 1.48 mg/dL (0.55-1.02); EST Glomerular Filtration Rate 37 mL/min (>60); Est Glom Filt Rate - Afr Amer 44 mL/min (>60); Glucose 118 mg/dL (74-106); Potassium 4.1 mmol/L (3.5-5.1); Sodium Level 128 mmol/L (136-145)
[2021-02-24 10:36] LABS: Absolute Lymphocyte Count 2.83 X10^3/uL (0.83-4.51); Absolute Neutrophil Count 3.6 X10^3/uL (2.0-7.7); Basophil# 0.06 X10^3/uL; Basophil% 0.8 % (0-1); Eosinophil# 0.05 X10^3/uL; Eosinophils% 0.7 % (0-5); Hematocrit 37.1 % (37-47); Hemoglobin 12.5 g/dL (12.0-15.0); Lymphocyte # 2.83 X10^3/ul (0.83-4.51); Mean Corp Hgb Conc 33.7 g/dL (32-36); Mean Corpuscular Hgb 31.3 pg (27.0-32.0); Mean Platelet Vol. 12.3 fl (6.2-12.0); Monocyte# 0.53 X10^3/uL; Monocyte% 7.5 % (0-10); NRBC Flagged by Analyzer 0 % (0-5); Neutrophil % 50.9 % (47-70); Platelet Count 131 K/mm3 (150-450); RBC Distribution Width CV 12.1 % (11.6-14.6); RBC Distribution Width SD 41.8 fl (35.1-43.9); Red Blood Count 3.99 M/mm3 (4.2-5.4); White Blood Count 7.1 K/mm3 (4.4-11.0)
== END ==
PROVIDERS: PCP Family Medicine; Referring Provider Family Medicine; Visit Provider Family Medicine
DX: D64.9 Anemia, unspecified (principal); E87.1 Hypo-osmolality and hyponatremia
CPT/HCPCS: 36415; 80048; 85025

== ENCOUNTER 2021-03-06 13:50 | Emergency (ER) | payer MEDICARE, SELFPAY ==
[2021-03-06 14:03] VITALS: BP 126/86; PULSE 97; RESP 18; TEMP 36.3; O2SAT 99; BMI 22.8
--- NOTE | 2021-03-06 15:29 | EKG12_ITS ---
Test Reason : Blood Pressure : / mmHG Vent. Rate : 091 BPM Atrial Rate : 091 BPM P-R Int : 132 ms QRS Dur : 064 ms QT Int : 378 ms P-R-T Axes : 077 030 058 degrees QTc Int : 464 ms Sinus rhythm with Premature atrial complexes Confirmed by GERARDO THOMAS, TERA ([id number]), associate entertainment editor IMANI JOHNSON ([id number]) on 03/08/2021 9:24:54 AM Referred By: EDPHYS Confirmed By:TERA CARRILLO MD
--- NOTE | 2021-03-06 15:31 | EDS_ITS ---
HPI History of Present Illness Chief Complaint: Weakness Informant: patient Narrative Narrative: Presents by EMS from home generalized weakness over the last couple days. Denies any falls. She typically ambulates with a cane states has been holding onto the wall at her apartment. Decreased p.o. intake states feels full after drinking small amount of Gatorade. Denies abdominal pain chest pains headaches. Denies cough. Denies urinary symptoms however states only urinating at most 3 times a day. No dysuria. Reports only medication she is on his lisinopril and allergy medications followed by Dr. Kayden Berg. Denies fevers chills or sweats. [facility] Medical History Anemia Anxiety and depression Arthritis Back pain Cataracts, bilateral Depression Difficulty balancing Fatigue GERD (gastroesophageal reflux disease) Hearing problem Hemorrhoids High cholesterol History of pneumonia HTN (hypertension) Hypertensive urgency Hypoglycemia Incontinence Irritable bowel syndrome (IBS) Kidney stone Knee pain Limb weakness Lipoma Osteopenia Restless leg syndrome Seasonal allergies Shoulder pain Sleep apnea treated with nocturnal BiPAP SOB (shortness of breath) Vision problems Vitamin deficiency Home Medications aspirin 81 mg PO DAILY 12/02/16 [History Last Taken Unknown] ropinirole 0.5 mg PO QHS 12/02/16 [History Last Taken Unknown] ibandronate 150 mg PO QMONTH 05/01/19 [History Last Taken Unknown] loratadine 10 mg PO DAILY 05/01/19 [History Last Taken Unknown] calcium carbonate 600 mg(1,500 mg)-vitamin D3 800 unit chewable tablet 1 tab PO DAILY tab 05/22/19 [History Last Taken Unknown] rnnrfmibaqft-ovsecgdv-wewwlar-folic acid 400 mcg-vit K1 20 mcg tablet 1 tab PO DAILY tab 05/22/19 [History Last Taken Unknown] peg 400-propylene glycol (PF) 1 ea OP PRN PRN 11/04/19 [History Last Taken Unknown] lisinopril 40 mg tablet 40 mg PO DAILY #30 tab 04/08/20 [Rx Last Taken Unknown] urea 45 % topical gel 1 applic TOPICAL DAILY ml 08/17/20 [History Last Taken Unknown] ferrous sulfate 142 mg (45 mg iron) tablet,extended release 142 mg PO DAILY 02/15/21 [History Last Taken Unknown] cephalexin 500 mg PO Q12 #14 cap 03/06/21 [Rx Last Taken Unknown] Allergy/AdvReac Type Severity Reaction Status Date / Time cigarette smoke Allergy Unknown Verified 03/06/21 14:05 erythromycin base Allergy Vomiting Verified 03/06/21 14:05 grass pollen Allergy Unknown Verified 03/06/21 14:05 azithromycin AdvReac Vomiting Verified 03/06/21 14:05 Latex, Natural Rubber AdvReac Rash Verified 03/06/21 14:05 Family History Father Myocardial infarction Respiratory disease Mother CVA (cerebral vascular accident) Brain tumor History of blood clots Bowel disease Anxiety and depression Epilepsy Hormone deficiency Seizures Allergy to antibiotic Daughter defect Sister Heart disease Rheumatic fever Other Tuberculosis Surgical History History of neck surgery History of nephrolithotomy with removal of calculi Lipoma Social History Smoking Status: Never smoker alcohol intake: never substance use type: does not use additional social history: DOES USE ASPIRIN DOES NOT USE IBUPROFEN ROS ROS ED Constitutional Constitutional ED: Denies chills, fever(s) or sweats Eyes Eyes: Denies change in vision ENT ENT ED: Denies dysphagia or sore throat Cardiovascular Cardiovascular: Denies chest pain, leg edema, palpitations or racing heartbeat Respiratory/Chest Respiratory/Chest: Denies cough, dyspnea or dyspnea on exertion Gastrointestinal Gastrointestinal: Denies abdominal pain, diarrhea, nausea or vomiting Genitourinary Genitourinary ED: Denies dysuria, hematuria or urinary frequency Musculoskeletal Musculoskeletal: Denies back pain, extremity pain or neck pain Integumentary Denies rash or wounds Neurologic Neurologic: Reports weakness; Denies headache(s) or paresthesias EXAM Physical Exam Const Vital Signs: 03/06/21 14:03 03/06/21 15:47 03/06/21 17:17 Temperature 97.4 F L Temperature Source Oral Pulse Rate 97 88 83 Respiratory Rate 18 16 14 Respiratory Effort Normal Respiratory Pattern Normal Blood Pressure 126/86 H 162/76 H 145/70 H Blood Pressure Mean 99 104 95 Pulse Ox 99 99 98 Oxygen Delivery Method Room Air Room Air Room Air 03/06/21 18:08 Temperature Temperature Source Pulse Rate 94 Respiratory Rate 16 Respiratory Effort Respiratory Pattern Blood Pressure 144/76 H Blood Pressure Mean 98 Pulse Ox 98 Oxygen Delivery Method Room Air Positive well nourished and well developed General Appearance ED: well developed and NAD HEENT Reports dry mucous membranes normocephalic and atraumatic Mouth ED: Yes dry mucous membranes Mouth: dry mucous membranes Eyes PERRL, EOMs intact bilaterally and conjunctivae normal General Eye ED: Yes normal appearance of both eyes Neck no lymphadenopathy and supple General: Negative for tenderness Chest Wall Chest: Negative for tenderness Resp normal respiratory effort and normal air movement Effort and Inspection: symmetric chest movement; Negative for respiratory distress Cardio regular rate, regular rhythm and no murmurs Peripheral Pulses: pulses 2+ throughout GI normal to inspection, nondistended, normoactive bowel sounds and non-tender Palpation: Negative for guarding or rebound tenderness present Back/Spine no CVA tenderness and no thoracic nor lumbar tenderness Extremity normal to inspection General Extremety ED: Negative for edema or tenderness General Extremity: Negative for edema Neuro oriented x3 and no sensory deficits noted Sensorium / Orientation: awake and alert Skin no rashes or lesions noted and no wounds MDM MDM MDM Narrative Medical decision making narrative: Patient vital signs stable nontoxic. Is mild dry mucosal membranes on exam. Given IV fluids, work-up initiated for her weakness. EKG sinus rhythm. Chest x-ray negative. Labs are stable hemoglobin 13.2. Normal electrolytes creatinine 1.38 stable from her previous labs. Urine however did note signs of infection with leukocytes and white blood cell counts. Urine culture sent. She started on Keflex. She is ambulating in department with no difficulties. Discussed findings with the patient will continue antibiotics with follow-up with her PCP discussed return precautions. All questions were answered. Lab Data Attestation: I reviewed the patient's lab results. Labs: Laboratory Results - last 24 hr 03/06/21 03/06/21 03/06/21 15:41 15:41 16:56 WBC 7.9 RBC 4.25 Hgb 13.2 Hct 40.2 MCV 94.6 MCH 31.1 MCHC 32.8 RDW Std Deviation 42.8 RDW Coeff of Keven 12.3 Plt Count 233 MPV 11.8 Immature Gran % (Auto) 0.600 Neut % (Auto) 71.8 H Lymph % (Auto) 20.6 [place] % (Auto) 6.2 Eos % (Auto) 0.4 Baso % (Auto) 0.4 Absolute Neuts (auto) 5.7 Absolute Lymphs (auto) 1.63 Nucleated RBC % 0 Sodium 136 Potassium 3.7 Chloride 98 Carbon Dioxide 27.0 Anion Gap 11 BUN 28 H Creatinine 1.38 H Estim Creat Clear Calc 27.40 Est GFR (MDRD) Af Amer 48 L Est GFR (MDRD) Non-Af 40 L BUN/Creatinine Ratio 20.3 H Glucose 98 Calcium 9.5 Total Bilirubin 1.10 H Direct Bilirubin 0.27 AST 18 ALT 24 Alkaline Phosphatase 52 Total Protein 7.9 Albumin 4.5 Globulin 3.4 Albumin/Globulin Ratio 1.3 Urine Color Yellow Urine Clarity Sl. Cloudy Urine pH 5.0 Ur Specific [place] 1.025 Urine Protein 30 H Urine Glucose (UA) Normal Urine Ketones 50 H Urine Occult Blood 25 H Urine Nitrite Negative Urine Bilirubin Negative Urine Urobilinogen Normal Ur Leukocyte Esterase 500 H Urine RBC 0-5 SEEN Urine WBC 50-100 SEEN Ur Squamous Epith Cells 0-5 SEEN Amorphous Sediment 1+ URATE Urine Bacteria 0 SEEN Urine Mucus 0 SEEN Radiography Chest X-Ray - ED: 1 View, Read by ED Physician, Read by Radiologist and No Acute Disease Diagnostic Testing: Radiology Impression Chest X-Ray 03/06/21 16:00 IMPRESSION: No acute radiographic abnormalities. Electronically Signed: Ad Buck MD at 16:28 EDT Tel , Service support , EKG Initial EKG: Attestation: I personally reviewed and interpreted this EKG as follows: Comments: Sinus rate of 91, no ST or T wave changes. QTc 464. Discharge Plan Triage Chief Complaint: Weakness ED Provider: Jared Scott Dx/Rx/DC Orders Clinical Impression: Acute UTI, Weakness, CKD (chronic kidney disease) Instructions: ED Chronic Kidney Disease (CKD), ED Bladder Infection, Female (Adult), ED Weakness (Uncertain Cause) Prescriptions: New cephalexin 500 mg capsule 500 mg PO Q12 Qty: 14 RF: 0 No Action Caltrate 600 plus D 600 mg (1,500 mg)-800 unit tablet,chewable 1 tab PO DAILY RF: 0 One-A-Day Women's 50 Plus 400-20 mcg tablet 1 tab PO DAILY RF: 0 urea [WILMER-Urea] 45 % gel 1 applic TOPICAL DAILY RF: 0 Slow Fe 142 mg (45 mg iron) tablet extended release 142 mg PO DAILY RF: 0 ropinirole 0.5 MG tablet 0.5 mg PO QHS RF: 0 aspirin 81 MG tablet,chewable 81 mg PO DAILY RF: 0 loratadine 10 MG tablet 10 mg PO DAILY RF: 0 ibandronate 150 MG tablet 150 mg PO QMONTH RF: 0 peg 400-propylene glycol (PF) 1 EACH dropperette 1 ea OP PRN PRN (Reason: Dry Eyes) RF: 0 lisinopril 40 mg tablet 40 mg PO DAILY Qty: 30 RF: 11 Primary Care Provider: Kayden Berg Referrals: Kayden Berg MD [Primary Care Provider] - 3-5 Days Disposition Disposition: Home, self care
[2021-03-06 15:47] VITALS: BP 162/76; PULSE 88; RESP 16; O2SAT 99
[2021-03-06 15:50] LABS: Absolute Lymphocyte Count 1.63 X10^3/uL (0.83-4.51); Absolute Neutrophil Count 5.7 X10^3/uL (2.0-7.7); Basophil# 0.03 X10^3/uL; Basophil% 0.4 % (0-1); Eosinophil# 0.03 X10^3/uL; Eosinophils% 0.4 % (0-5); Hematocrit 40.2 % (37-47); Hemoglobin 13.2 g/dL (12.0-15.0); Lymphocyte # 1.63 X10^3/ul (0.83-4.51); Lymphocyte % 20.6 % (19-41); Mean Corp Hgb Conc 32.8 g/dL (32-36); Mean Corpuscular Hgb 31.1 pg (27.0-32.0); Mean Corpuscular Volume 94.6 fL (81-99); Mean Platelet Vol. 11.8 fl (6.2-12.0); Monocyte# 0.49 X10^3/uL; Monocyte% 6.2 % (0-10); NRBC Flagged by Analyzer 0 % (0-5); Neutrophil # 5.69 X10^3/uL (2.7-7.7); Neutrophil % 71.8 % (47-70); Platelet Count 233 K/mm3 (150-450); RBC Distribution Width CV 12.3 % (11.6-14.6); RBC Distribution Width SD 42.8 fl (35.1-43.9); Red Blood Count 4.25 M/mm3 (4.2-5.4); White Blood Count 7.9 K/mm3 (4.4-11.0)
[2021-03-06] MEDS: 0.9% Normal Saline 1,000 ML 1000 ML IV (15:50)
--- NOTE | 2021-03-06 16:00 | RAD_ITS ---
INDICATION: weakness EXAMINATION/TECHNIQUE: X-RAY - XR Chest 2 Views COMPARISON: None. FINDINGS: Calcified granuloma in the right mid lung. Lungs are otherwise clear. The cardiomediastinal silhouette is unremarkable. No pleural effusion or pneumothorax. No acute osseous abnormalities. RAD/Chest PA and Lateral IMPRESSION: No acute radiographic abnormalities. Electronically Signed: Ad Buck MD at 16:28 EDT Tel , Service support ,
[2021-03-06 16:14] LABS: ALB/GLOB Ratio 1.3 RATIO (0.9-2.4); AST(SGOT) 18 U/L (15-37); Alanine Aminotransfer ALT/SGPT 24 U/L (13-56); Albumin, Serum 4.5 g/dL (3.2-5.0); Alkaline Phosphatase 52 U/L (45-117); Anion Gap 11 (5-15); BUN 28 mg/dL (7-18); BUN/Creat Ratio 20.3 RATIO (10-20); Bilirubin, Direct 0.27 mg/dL (0.00-0.30); Calcium,Total 9.5 mg/dL (8.5-10.1); Chloride 98 mmol/L (98-107); Creatinine, Serum 1.38 mg/dL (0.55-1.02); EST Glomerular Filtration Rate 40 mL/min (>60); Est Glom Filt Rate - Afr Amer 48 mL/min (>60); Globulin 3.4 g/dL (2.2-4.2); Glucose 98 mg/dL (74-106); Potassium 3.7 mmol/L (3.5-5.1); Protein, Total 7.9 g/dL (6.4-8.2); Sodium Level 136 mmol/L (136-145)
[2021-03-06 17:11] LABS: Bacteria 0 SEEN /hpf (None Seen); Mucous, Urine 0 SEEN /hpf (<or=2+)
[2021-03-06 17:17] VITALS: BP 145/70; PULSE 83; RESP 14; O2SAT 98
[2021-03-06 17:24] LABS: Color, Urine Yellow (Yellow); Glucose, Dipstick Normal (Normal); Ketone-Dipstick 50 mg/dl (Negative); Leukocyte Esterase-Dipstick 500 /ul (Negative); Nitrite-Dipstick Negative (Negative); Occult Blood-Urine 25 /ul (Negative); Protein-Dipstick 30 mg/dl (Negative); Specific Gravity, Urine 1.025 (1.002-1.030); Urine Bilirubin Dipstick Negative (Negative); Urine Clarity Sl. Cloudy (Clear); Urine Urobilinogen Normal (Normal)
[2021-03-06 17:39] LABS: Red Blood Cells-Urine 0-5 SEEN /hpf (0-5); Squamous Epithelial Cells - UA 0-5 SEEN /hpf (5-10); White Blood Cells 50-100 SEEN /hpf (0-5)
[2021-03-06 17:40] LABS: Amorphous Sediment 1+ URATE
[2021-03-06] MEDS: Cephalexin 250 MG Capsule 500 MG PO (18:07)
[2021-03-06 18:08] VITALS: BP 144/76; PULSE 94; RESP 16; O2SAT 98
== END 2021-03-06 18:32 | disposition home or self-care (01) ==
PROVIDERS: Emergency Provider Emergency Medicine; PCP Family Medicine
DX: N39.0 Urinary tract infection, site not specified (principal); I12.9 Hypertensive chronic kidney disease with stage 1 through stage 4 chronic kidney disease, or unspecified chronic kidney disease; N18.9 Chronic kidney disease, unspecified; K21.9 Gastro-esophageal reflux disease without esophagitis; E78.00 Pure hypercholesterolemia, unspecified; F32.9 Major depressive disorder, single episode, unspecified; F41.9 Anxiety disorder, unspecified; Z79.82 Long term (current) use of aspirin
CPT/HCPCS: 71046; 80053; 80076; 81001; 85025; 87086; 87088; 93005; 96360; 99285; J7030; A4216

== ENCOUNTER → 2021-04-05 14:35 | Outpatient (CLI) | payer MEDICARE, SELFPAY ==
[2021-03-06 14:03] VITALS: BMI 22.8
[2021-04-05 17:47] LABS: Anion Gap 8 (5-15); BUN 24 mg/dL (7-18); BUN/Creat Ratio 18.9 RATIO (10-20); Chloride 106 mmol/L (98-107); Creatinine, Serum 1.27 mg/dL (0.55-1.02); EST Glomerular Filtration Rate 44 mL/min (>60); Est Glom Filt Rate - Afr Amer 53 mL/min (>60); Glucose 136 mg/dL (74-106); Potassium 3.4 mmol/L (3.5-5.1); Sodium Level 140 mmol/L (136-145)
== END ==
PROVIDERS: PCP Family Medicine; Visit Provider Family Medicine
DX: E87.1 Hypo-osmolality and hyponatremia (principal)
CPT/HCPCS: 36415; 80048

== ENCOUNTER → 2021-05-08 05:00 | Outpatient (REF) | payer MEDICARE, SELFPAY ==
[2021-05-08 09:14] LABS: Hematocrit 33.9 % (37-47); Hemoglobin 10.3 g/dL (12.0-15.0); Mean Corp Hgb Conc 30.4 g/dL (32-36); Mean Corpuscular Hgb 30.9 pg (27.0-32.0); Mean Corpuscular Volume 101.8 fL (81-99); POSITIVE COUNT YES; Platelet Count 154 K/mm3 (150-450); RBC Distribution Width CV 13.9 % (11.6-14.6); RBC Distribution Width SD 52.2 fl (35.1-43.9); Red Blood Count 3.33 M/mm3 (4.2-5.4); White Blood Count 4.6 K/mm3 (4.4-11.0)
[2021-05-08 09:49] LABS: ALB/GLOB Ratio 1.1 RATIO (0.9-2.4); AST(SGOT) 15 U/L (15-37); Alanine Aminotransfer ALT/SGPT 20 U/L (13-56); Albumin, Serum 3.5 g/dL (3.2-5.0); Alkaline Phosphatase 48 U/L (45-117); Anion Gap 5 (5-15); BUN 17 mg/dL (7-18); BUN/Creat Ratio 16.2 RATIO (10-20); Calcium,Total 8.7 mg/dL (8.5-10.1); Chloride 106 mmol/L (98-107); Creatinine, Serum 1.05 mg/dL (0.55-1.02); EST Glomerular Filtration Rate 55 mL/min (>60); Est Glom Filt Rate - Afr Amer 66 mL/min (>60); Globulin 3.3 g/dL (2.2-4.2); Glucose 81 mg/dL (74-106); Potassium 3.9 mmol/L (3.5-5.1); Protein, Total 6.8 g/dL (6.4-8.2); Scan Indicated on CBC? Y/N YES- FLAGS NOTED; Sodium Level 139 mmol/L (136-145)
== END ==
LOC: OLS.WCC 05:00
PROVIDERS: PCP Family Medicine; Visit Provider Family Medicine
DX: D64.9 Anemia, unspecified (principal); E87.1 Hypo-osmolality and hyponatremia
CPT/HCPCS: 36415; 80053; 84443; 85027

== ENCOUNTER → 2021-06-07 16:08 | Outpatient (CLI) | payer MEDICARE, SELFPAY ==
[2021-06-07 17:56] LABS: Hematocrit 34.3 % (37-47); Hemoglobin 10.6 g/dL (12.0-15.0); Mean Corp Hgb Conc 30.9 g/dL (32-36); Mean Corpuscular Hgb 31.5 pg (27.0-32.0); Mean Corpuscular Volume 101.8 fL (81-99); Mean Platelet Vol. 14.2 fl (6.2-12.0); POSITIVE COUNT YES; Platelet Count 143 K/mm3 (150-450); RBC Distribution Width CV 12.7 % (11.6-14.6); RBC Distribution Width SD 47.6 fl (35.1-43.9); Red Blood Count 3.37 M/mm3 (4.2-5.4); White Blood Count 5.6 K/mm3 (4.4-11.0)
[2021-06-07 18:02] LABS: Scan Indicated on CBC? Y/N YES- FLAGS NOTED
[2021-06-07 18:31] LABS: Differential Comment SCANNED; Erythrocyte Sedimentation Rate 8 mm/hr (0-30)
[2021-06-07 19:08] LABS: ALB/GLOB Ratio 1.1 RATIO (0.9-2.4); AST(SGOT) 18 U/L (15-37); Alanine Aminotransfer ALT/SGPT 21 U/L (13-56); Albumin, Serum 3.9 g/dL (3.2-5.0); Alkaline Phosphatase 69 U/L (45-117); Anion Gap 5 (5-15); BUN 19 mg/dL (7-18); BUN/Creat Ratio 17.9 RATIO (10-20); Calcium,Total 8.4 mg/dL (8.5-10.1); Chloride 107 mmol/L (98-107); Creatinine, Serum 1.06 mg/dL (0.55-1.02); EST Glomerular Filtration Rate 54 mL/min (>60); Est Glom Filt Rate - Afr Amer 65 mL/min (>60); Globulin 3.5 g/dL (2.2-4.2); Glucose 88 mg/dL (74-106); Iron 62 ug/dL (50-170); Potassium 3.9 mmol/L (3.5-5.1); Protein, Total 7.4 g/dL (6.4-8.2); Sodium Level 141 mmol/L (136-145); Thyroid Stim Hormone (TSH) 3.37 uIU/mL (0.358-3.74)
== END ==
PROVIDERS: PCP Family Medicine; Referring Provider Internal Medicine Gastroenterology; Visit Provider Internal Medicine Gastroenterology
DX: D50.9 Iron deficiency anemia, unspecified (principal); K59.00 Constipation, unspecified
CPT/HCPCS: 36415; 80053; 83540; 84443; 85027; 85652

== ENCOUNTER → 2021-06-09 05:00 | Outpatient (REF) | payer MEDICARE, SELFPAY ==
[2021-06-09 08:11] LABS: Hematocrit 33.3 % (37-47); Hemoglobin 10.4 g/dL (12.0-15.0); Mean Corp Hgb Conc 31.2 g/dL (32-36); Mean Corpuscular Hgb 31.7 pg (27.0-32.0); Mean Corpuscular Volume 101.5 fL (81-99); Mean Platelet Vol. 13.5 fl (6.2-12.0); POSITIVE COUNT YES; Platelet Count 135 K/mm3 (150-450); RBC Distribution Width CV 12.6 % (11.6-14.6); RBC Distribution Width SD 47.1 fl (35.1-43.9); Red Blood Count 3.28 M/mm3 (4.2-5.4); White Blood Count 5.1 K/mm3 (4.4-11.0)
[2021-06-09 08:12] LABS: Scan Indicated on CBC? Y/N YES- FLAGS NOTED
[2021-06-09 08:21] LABS: Anion Gap 3 (5-15); BUN 20 mg/dL (7-18); BUN/Creat Ratio 19.4 RATIO (10-20); Calcium,Total 8.5 mg/dL (8.5-10.1); Chloride 108 mmol/L (98-107); Creatinine, Serum 1.03 mg/dL (0.55-1.02); EST Glomerular Filtration Rate 56 mL/min (>60); Est Glom Filt Rate - Afr Amer 68 mL/min (>60); Glucose 87 mg/dL (74-106); Potassium 3.8 mmol/L (3.5-5.1); Sodium Level 141 mmol/L (136-145)
== END ==
LOC: OLS.WCC 05:00
PROVIDERS: PCP Family Medicine; Visit Provider Family Medicine
DX: D64.9 Anemia, unspecified (principal); I10 Essential (primary) hypertension; Z79.899 Other long term (current) drug therapy
CPT/HCPCS: 36415; 80048; 85027

== ENCOUNTER → 2021-06-20 05:00 | Outpatient (REF) | payer MEDICARE, SELFPAY ==
[2021-06-20 10:25] LABS: Hematocrit 33.1 % (37-47); Hemoglobin 10.6 g/dL (12.0-15.0); Mean Platelet Vol. 13.5 fl (6.2-12.0); POSITIVE COUNT YES; RBC Distribution Width CV 12.4 % (11.6-14.6); RBC Distribution Width SD 45.7 fl (35.1-43.9); Red Blood Count 3.31 M/mm3 (4.2-5.4); White Blood Count 4.7 K/mm3 (4.4-11.0)
[2021-06-20 10:32] LABS: Anion Gap 10 (5-15); BUN 23 mg/dL (7-18); BUN/Creat Ratio 15.9 RATIO (10-20); Calcium,Total 8.4 mg/dL (8.5-10.1); Chloride 101 mmol/L (98-107); Creatinine, Serum 1.45 mg/dL (0.55-1.02); EST Glomerular Filtration Rate 38 mL/min (>60); Est Glom Filt Rate - Afr Amer 46 mL/min (>60); Glucose 113 mg/dL (74-106); Potassium 4.2 mmol/L (3.5-5.1); Sodium Level 138 mmol/L (136-145)
[2021-06-20 10:51] LABS: Scan Indicated on CBC? Y/N YES- FLAGS NOTED
== END ==
LOC: OLS.WCC 05:00
PROVIDERS: PCP Family Medicine; Visit Provider Family Medicine
DX: D64.9 Anemia, unspecified (principal); I10 Essential (primary) hypertension; Z79.899 Other long term (current) drug therapy
CPT/HCPCS: 36415; 80048; 85027

== ENCOUNTER → 2021-07-11 07:40 | Outpatient (CLI) | payer MEDICARE, SELFPAY ==
--- NOTE | 2021-07-11 07:43 | RAD_ITS ---
STUDY: X-RAY - ESOPHAGUS (BARIUM SWALLOW) WITH FLUOROSCOPY REASON FOR EXAM: Female, 75 years old. DYSPHAGIA TECHNIQUE: 12 view(s) of the esophagus were obtained following swallowing of barium. FLUOROSCOPY TIME (if supplied): (31 seconds) minutes/seconds COMPARISON: None. FINDINGS: There is no demonstrated esophageal foreign body. There is no demonstrated stricture or mucosal abnormality. Normal gastroesophageal junction, without a demonstrated hiatal hernia. The patient ingested a 12 mm tablet of barium without any difficulty. Normal visualized aortic arch and descending thoracic aorta. Normal visualized pulmonary parenchyma. Normal visualized osseous structures of the thorax. RAD/Esophagus Single Contrast IMPRESSION: Normal plain film x-ray examination (barium swallow) of the esophagus. Electronically Signed: Shyam Chung MD at 8:37 EDT , Service support ,
== END ==
PROVIDERS: PCP Family Medicine; Referring Provider Internal Medicine Gastroenterology; Visit Provider Internal Medicine Gastroenterology
DX: R13.10 Dysphagia, unspecified (principal)
CPT/HCPCS: 74220

== ENCOUNTER → 2021-07-20 05:00 | Outpatient (REF) | payer MEDICARE, SELFPAY ==
[2021-07-20 08:42] LABS: Hematocrit 32.8 % (37-47); Hemoglobin 10.9 g/dL (12.0-15.0); Mean Corp Hgb Conc 33.2 g/dL (32-36); Mean Corpuscular Hgb 31.1 pg (27.0-32.0); Mean Corpuscular Volume 93.4 fL (81-99); Mean Platelet Vol. 12.5 fl (6.2-12.0); POSITIVE COUNT YES; Platelet Count 164 K/mm3 (150-450); RBC Distribution Width CV 11.9 % (11.6-14.6); RBC Distribution Width SD 41.1 fl (35.1-43.9); Red Blood Count 3.51 M/mm3 (4.2-5.4); White Blood Count 5.6 K/mm3 (4.4-11.0)
[2021-07-20 09:13] LABS: Anion Gap 8 (5-15); BUN 22 mg/dL (7-18); BUN/Creat Ratio 19.8 RATIO (10-20); Calcium,Total 8.6 mg/dL (8.5-10.1); Chloride 96 mmol/L (98-107); Creatinine, Serum 1.11 mg/dL (0.55-1.02); EST Glomerular Filtration Rate 51 mL/min (>60); Est Glom Filt Rate - Afr Amer 62 mL/min (>60); Glucose 86 mg/dL (74-106); Potassium 4.8 mmol/L (3.5-5.1); Sodium Level 128 mmol/L (136-145); Thyroid Stim Hormone (TSH) 3.41 uIU/mL (0.358-3.74)
[2021-07-20 09:20] LABS: Scan Indicated on CBC? Y/N YES- FLAGS NOTED
[2021-07-20 09:21] LABS: Differential Comment SCANNED
== END ==
LOC: OLS.WCC 05:00
PROVIDERS: PCP Family Medicine; Visit Provider Family Medicine
DX: D64.9 Anemia, unspecified (principal); I10 Essential (primary) hypertension; E78.5 Hyperlipidemia, unspecified; E03.9 Hypothyroidism, unspecified; Z79.899 Other long term (current) drug therapy
CPT/HCPCS: 36415; 80048; 84443; 85027

== ENCOUNTER 2021-10-16 05:58 | Observation (INO) | payer MEDICARE, SELFPAY ==
[2021-10-16] VITALS (9 sets, daily range): BP systolic 105–134; BP diastolic 55–80; PULSE 68–80; RESP 14–18; TEMP 36.2–36.9; O2SAT 99–100; BMI 24.7; BMI 23.3
--- NOTE | 2021-10-16 06:20 | ED.VIS.FALL ---
HPI HPI - Fall History of Present Illness Chief Complaint: Fall Informant: patient Occured/Mechanism Occurred: Today Mechanism/Context: Yes same level fall Pain/Injury Location: Occiput Pain Location: head Quality of Pain: Dull Worsened by: Nothing Relieved by: Nothing Associated Symptoms Associated Symptoms: Positive for Weakness (Bilateral knee weakness); Negative for Parasthesias, Loss of consciousness and Amnesia Narrative Narrative: Patient presents after a fall that occurred this morning. Patient tried to get up to go to the bathroom when she fell. Patient states she felt like her knees gave out. Patient states she fell backwards and hit the back of her head. Patient denies any loss of consciousness. Patient admits to a dull headache. Patient states it is over the occipital scalp. Patient denies any lacerations. Patient denies any neck or back pain. Patient states she has had a mild sore throat for the past few days. Patient denies any fevers or chills. [facility] Medical History Anemia Anxiety and depression Arthritis Back pain Cataracts, bilateral Depression Difficulty balancing Fatigue GERD (gastroesophageal reflux disease) Hearing problem Hemorrhoids High cholesterol History of pneumonia HTN (hypertension) Hypertensive urgency Hypoglycemia Incontinence Irritable bowel syndrome (IBS) Kidney stone Knee pain Limb weakness Lipoma Osteopenia Restless leg syndrome Seasonal allergies Shoulder pain Sleep apnea treated with nocturnal BiPAP SOB (shortness of breath) Vision problems Vitamin deficiency Home Medications aspirin 81 mg PO DAILY 12/02/16 [History Last Taken Unknown] ropinirole 0.5 mg PO QHS 12/02/16 [History Last Taken Unknown] ibandronate 150 mg PO QMONTH 05/01/19 [History Last Taken Unknown] loratadine 10 mg PO DAILY 05/01/19 [History Last Taken Unknown] calcium carbonate 600 mg-vitamin D3 20 mcg (800 unit) chewable tablet 1 tab PO DAILY tab 05/22/19 [History Last Taken Unknown] nujhesssluld-apnochvc-dxfulxb-folic acid 400 mcg-vit K1 20 mcg tablet 1 tab PO DAILY tab 05/22/19 [History Last Taken Unknown] peg 400-propylene glycol (PF) 1 ea OP PRN PRN 11/04/19 [History Last Taken Unknown] lisinopril 40 mg tablet 40 mg PO DAILY #30 tab 07/24/20 [Rx Last Taken Unknown] urea 45 % topical gel 1 applic TOPICAL DAILY ml 08/17/20 [History Last Taken Unknown] bisacodyl 5 mg tablet,delayed release 5 mg PO ONCE 06/14/21 [History Last Taken Unknown] famotidine 20 mg tablet 20 mg PO DAILY 06/14/21 [History Last Taken Unknown] Allergy/AdvReac Type Severity Reaction Status Date / Time cigarette smoke Allergy Unknown Verified 06/14/21 12:55 erythromycin base Allergy Vomiting Verified 06/14/21 12:55 grass pollen Allergy Unknown Verified 06/14/21 12:55 azithromycin AdvReac Vomiting Verified 06/14/21 12:55 Latex, Natural Rubber AdvReac Rash Verified 06/14/21 12:55 Family History Father Myocardial infarction Respiratory disease Mother CVA (cerebral vascular accident) Brain tumor History of blood clots Bowel disease Anxiety and depression Epilepsy Hormone deficiency Seizures Allergy to antibiotic Daughter defect Sister Heart disease Rheumatic fever Other Tuberculosis Surgical History History of neck surgery History of nephrolithotomy with removal of calculi Lipoma Social History Smoking Status: Never smoker alcohol intake: never substance use type: does not use additional social history: DOES USE ASPIRIN DOES NOT USE IBUPROFEN ROS ROS ED Constitutional Constitutional ED: Denies chills or fever(s) Eyes Eyes: Denies blurry vision or change in vision ENT ENT ED: Reports sore throat; Denies rhinorrhea Cardiovascular Cardiovascular: Denies chest pain or palpitations Respiratory/Chest Respiratory/Chest: Denies cough or dyspnea Gastrointestinal Gastrointestinal: Denies nausea or vomiting Genitourinary Genitourinary ED: Denies dysuria or hematuria Musculoskeletal Musculoskeletal: Denies back pain or neck pain Integumentary Denies abscess or rash Neurologic Neurologic: Reports headache(s) and weakness Allergic/Immunologic Allergic/Immunologic ED: Denies mouth swelling or urticaria EXAM Physical Exam Const Vital Signs: 10/16/21 06:00 10/16/21 06:06 Temperature 97.2 F L Temperature Source Temporal Pulse Rate 74 Respiratory Rate 16 Respiratory Effort Normal Blood Pressure 121/71 H Blood Pressure Mean 87 Pulse Ox 100 Oxygen Delivery Method Room Air Room Air Positive well nourished and well developed General Appearance ED: well developed HEENT Reports normocephalic Eyes PERRL and EOMs intact bilaterally Neck full ROM and supple Resp normal respiratory effort and clear to auscultation bilaterally Cardio regular rate and regular rhythm GI non-tender Palpation: soft Extremity normal to inspection and full ROM Neuro oriented x3, CN's II-XII intact bilaterally, moves all extremities, no focal motor deficits and no sensory deficits noted Sensorium / Orientation: alert Psych mental status grossly normal MDM MDM MDM Narrative Medical decision making narrative: CBC shows a mild anemia with a hemoglobin of 11.7 and hematocrit 31.3. This is stable compared to prior results. CT scan of the brain was obtained. There is no acute intracranial abnormality noted. This was interpreted by the radiologist and reviewed by myself. Comprehensive metabolic profile showed a sodium of 113. BUN was 28 and creatinine was 1.33. These results are consistent with prior results. Urinalysis was ordered and is pending. Patient was given IV fluids. Case was discussed with the hospitalist. He will admit the patient to his service. Patient understood and was agreeable with the plan. All questions were answered. Lab Data Attestation: I reviewed the patient's lab results. Labs: Laboratory Results - last 24 hr 10/16/21 10/16/21 06:45 06:45 WBC 10.3 RBC 3.75 L Hgb 11.7 L Hct 31.3 L MCV 83.5 MCH 31.2 MCHC 37.4 H RDW Std Deviation 35.3 RDW Coeff of Keven 11.5 L Plt Count 265 MPV 11.1 Immature Gran % (Auto) 0.600 Neut % (Auto) 78.1 H Lymph % (Auto) 12.2 L [place] % (Auto) 8.5 Eos % (Auto) 0.2 Baso % (Auto) 0.4 Absolute Neuts (auto) 8.0 H Absolute Lymphs (auto) 1.25 Nucleated RBC % 0 Sodium 113 L* Potassium 3.8 Chloride 78 L Carbon Dioxide 22.0 Anion Gap 13 BUN 28 H Creatinine 1.33 H Estim Creat Clear Calc 28.43 Est GFR (MDRD) Af Amer 50 L Est GFR (MDRD) Non-Af 42 L BUN/Creatinine Ratio 21.1 H Glucose 98 Calcium 8.8 Total Bilirubin 1.50 H AST 54 H ALT 32 Alkaline Phosphatase 72 Total Protein 7.9 Albumin 4.0 Globulin 3.9 Albumin/Globulin Ratio 1.0 Radiography Diagnostic Testing: Clinical Impression(s) from Imaging Studies Brain CT 10/16/21 06:35 IMPRESSION: Negative unenhanced CT scan of the brain. Electronically Signed: Ad Potts MD at 7:18 EST , Treatment and Re-Evaluation Vital Sign Attestation:: Vital signs were reviewed prior to admission. They are stable. Discharge Plan Dx/Rx/DC Orders Clinical Impression: Hyponatremia, Fall, Closed head injury Disposition Disposition: Acute Care Hospital [facility] [place] [facility]
--- NOTE | 2021-10-16 06:35 | CT_ITS ---
STUDY: CT BRAIN WITHOUT CONTRAST REASON FOR EXAM: Female, 75 years old. Head injury RADIATION DOSAGE (If Supplied By Facility): CTDIvol = ( 44.99 ) mGy, DLP = ( 745.49 ) mGycm TECHNIQUE: Transaxial CT imaging of the brain was performed without administration of intravenous contrast material. Individualized dose optimization techniques were used for this CT. COMPARISON: No relevant priors. FINDINGS: Normal soft tissue structures. Normal calvarium. Normal size ventricles and extra-axial spaces for the patient''s age. Normal white matter tracts of the cerebral hemispheres. Normal basal ganglia and thalami. Normal brainstem. Normal cerebellum. There is no intracranial hemorrhage. There are no findings of an acute ischemic infarction. Normal visualized paranasal sinuses. CT/Brain/Head without Contrast IMPRESSION: Negative unenhanced CT scan of the brain. Electronically Signed: Ad Potts MD at 7:18 EST ,
[2021-10-16 06:55] LABS: Absolute Lymphocyte Count 1.25 X10^3/uL (0.83-4.51); Basophil# 0.04 X10^3/uL; Basophil% 0.4 % (0-1); Eosinophil# 0.02 X10^3/uL; Eosinophils% 0.2 % (0-5); Hematocrit 31.3 % (37-47); Hemoglobin 11.7 g/dL (12.0-15.0); Lymphocyte # 1.25 X10^3/ul (0.83-4.51); Lymphocyte % 12.2 % (19-41); Mean Corp Hgb Conc 37.4 g/dL (32-36); Mean Corpuscular Hgb 31.2 pg (27.0-32.0); Mean Corpuscular Volume 83.5 fL (81-99); Mean Platelet Vol. 11.1 fl (6.2-12.0); Monocyte# 0.87 X10^3/uL; Monocyte% 8.5 % (0-10); NRBC Flagged by Analyzer 0 % (0-5); Neutrophil # 8.03 X10^3/uL (2.7-7.7); Neutrophil % 78.1 % (47-70); Platelet Count 265 K/mm3 (150-450); RBC Distribution Width CV 11.5 % (11.6-14.6); RBC Distribution Width SD 35.3 fl (35.1-43.9); Red Blood Count 3.75 M/mm3 (4.2-5.4); White Blood Count 10.3 K/mm3 (4.4-11.0)
[2021-10-16 07:15] LABS: AST(SGOT) 54 U/L (15-37); Alanine Aminotransfer ALT/SGPT 32 U/L (13-56); Alkaline Phosphatase 72 U/L (45-117); Anion Gap 13 (5-15); BUN 28 mg/dL (7-18); BUN/Creat Ratio 21.1 RATIO (10-20); Calcium,Total 8.8 mg/dL (8.5-10.1); Chloride 78 mmol/L (98-107); Creatinine, Serum 1.33 mg/dL (0.55-1.02); EST Glomerular Filtration Rate 42 mL/min (>60); Est Glom Filt Rate - Afr Amer 50 mL/min (>60); Estimated Creatinine Clearance 28.43 ml/min; Globulin 3.9 g/dL (2.2-4.2); Glucose 98 mg/dL (74-106); Potassium 3.8 mmol/L (3.5-5.1); Protein, Total 7.9 g/dL (6.4-8.2); Sodium Level 113 mmol/L (136-145)
--- NOTE | 2021-10-16 07:26 | NURSING ---
PCU TERELETSKY HYPONATREMIA
[2021-10-16] MEDS: 0.9% Normal Saline 1,000 ML 1000 ML IV (07:34)
[2021-10-16] MEDS: Famotidine 20 MG Tablet PO (11:00)
[2021-10-16] MEDS: Lisinopril 40 MG Tablet PO (11:00)
[2021-10-16] MEDS: Heparin Injection (Vial) 5,000 UNIT/ML VIAL 5000 UNIT SC ×2 (11:00→21:55)
[2021-10-16] MEDS: Aspirin 81 MG TAB.CHEW PO (11:00)
[2021-10-16] MEDS: 0.9% Normal Saline 1,000 ML 125 ML IV ×2 (11:01→17:17)
--- NOTE | 2021-10-16 12:49 | HP.PCM.HOS_ITS ---
Documented by User: Reyna Peacock NP, DIAGNOSTIC SALES SPECIALIST-C 10/16/21 13:22 HPI - General General Date of Admission: 10/16/21 Date of Service: 10/16/21 Chief Complaint: Fall HPI Narrative LIA GTZ, is a 75 F who presents to the emergency room due to fall at intermediate. Patient states she was walking to the bathroom when she attempted to look at the clock, it put her off balance and she fell. She denies dizziness , lightheadedness. She states she was diagnosed with Covid 11 days ago and her only symptom was sore throat however she has had poor appetite and oral intake over the past week. She denies fever. Denies cough. Denies pain or injury from fall. Patient states she has resided at [facility] since April. She has a past medical history of BILL, hypertension, chronic anemia, restless leg syndrome. [facility] Medical History Anemia Anxiety and depression Arthritis Back pain Cataracts, bilateral Depression Difficulty balancing Fatigue GERD (gastroesophageal reflux disease) Hearing problem Hemorrhoids High cholesterol History of pneumonia HTN (hypertension) Hypertensive urgency Hypoglycemia Incontinence Irritable bowel syndrome (IBS) Kidney stone Knee pain Limb weakness Lipoma Osteopenia Restless leg syndrome Seasonal allergies Shoulder pain Sleep apnea treated with nocturnal BiPAP SOB (shortness of breath) Vision problems Vitamin deficiency Home Medications ropinirole 0.5 mg PO QHS 12/02/16 [History Last Taken 10/15/21] ibandronate 150 mg PO QMONTH 05/01/19 [History Last Taken 09/24/21] loratadine 10 mg PO DAILY 05/01/19 [History Last Taken 10/15/21] tqdrmrvkledh-cnkdsehk-xvxhsjp-folic acid 400 mcg-vit K1 20 mcg tablet 1 tab PO DAILY tab 05/22/19 [History Last Taken 10/15/21] lisinopril 40 mg tablet 40 mg PO DAILY #30 tab 04/08/20 [Rx Last Taken 10/15/21] bisacodyl 5 mg tablet,delayed release 5 mg PO DAILY PRN PRN 06/14/21 [History Last Taken Unknown] famotidine 20 mg tablet 20 mg PO BID 06/14/21 [History Last Taken 10/15/21] ferrous sulfate [FeroSul] 325 mg PO MOWEFR 10/16/21 [History Last Taken 10/13/21] hydrochlorothiazide 12.5 mg PO DAILY 10/16/21 [History Last Taken 10/15/21] propylene glycol [Systane Balance] 2 drp EACH EYE DAILY PRN PRN 10/16/21 [History Last Taken Unknown] sennosides-docusate sodium [Senna Plus] 1 tab PO BID 10/16/21 [History Last Taken 10/15/21] Allergy/AdvReac Type Severity Reaction Status Date / Time cigarette smoke Allergy Unknown Verified 06/14/21 12:55 erythromycin base Allergy Vomiting Verified 06/14/21 12:55 grass pollen Allergy Unknown Verified 06/14/21 12:55 azithromycin AdvReac Vomiting Verified 06/14/21 12:55 Latex, Natural Rubber AdvReac Rash Verified 06/14/21 12:55 Family History Father Myocardial infarction Respiratory disease Mother CVA (cerebral vascular accident) Brain tumor History of blood clots Bowel disease Anxiety and depression Epilepsy Hormone deficiency Seizures Allergy to antibiotic Daughter defect Sister Heart disease Rheumatic fever Other Tuberculosis Surgical History History of neck surgery History of nephrolithotomy with removal of calculi Lipoma Social History Smoking Status: Never smoker alcohol intake: never substance use type: does not use additional social history: DOES USE ASPIRIN DOES NOT USE IBUPROFEN ROS Constitutional Constitutional: Reports weakness and other; Denies change in weight, chills, fat igue or fever(s) ENT HEENT: Reports sore throat Cardiovascular Cardiovascular: Denies chest pain, edema, lightheadedness, palpitations or syncope Respiratory/Chest Respiratory/Chest: Denies cough, dyspnea, productive cough, shortness of breath at rest, shortness of breath with exertion or wheezing Gastrointestinal Gastrointestinal: Denies abdominal pain, constipation, diarrhea, nausea or vomiting Genitourinary Genitourinary: Denies burning urination, difficulty urinating, dysuria, hematuria, urinary frequency, urinary incontinence or urinary urgency Musculoskeletal Musculoskeletal: Denies back pain, joint pain or muscle weakness Integumentary Integumentary: Denies erythema, lesions, rash or wounds Neurologic Neurologic: Denies abnormal speech, confusion, dizziness, focal weakness, numbness, paresthesias, seizure-like activity or syncope Psychiatric Psychiatric: Denies anxiety or depression Hematologic/Lymphatic Hematologic/Lymphatic: Denies anemia, easy bleeding or easy bruising Allergic/Immunologic Allergic/Immunologic: Denies hives or asthma Vital Signs Vital Signs Vital Signs: 10/16/21 06:00 10/16/21 06:06 10/16/21 07:35 Temperature 97.2 F L 98.4 F Temperature Source Temporal Temporal Pulse Rate 74 78 Respiratory Rate 16 18 Respiratory Effort Normal Blood Pressure 121/71 H 117/80 Blood Pressure Mean 87 92 Blood Pressure Source Blood Pressure Position Blood Pressure Location Pulse Ox 100 99 Oxygen Delivery Method Room Air Room Air Room Air 10/16/21 08:34 10/16/21 08:53 10/16/21 10:00 Temperature 98.1 F Temperature Source Oral Pulse Rate 79 80 Respiratory Rate 16 Respiratory Effort Blood Pressure 134/55 H Blood Pressure Mean 81 Blood Pressure Source Monitor Blood Pressure Position Supine Blood Pressure Location Left Arm Pulse Ox 99 Oxygen Delivery Method Room Air Room Air Weight Weight: 119 lb 12.8 oz Body Mass Index (BMI) 23.3 Physical Exam Const alert, oriented x3 and no apparent distress Orientation / Consciousness: awake, oriented to person, oriented to place and oriented to time HEENT normocephalic Mouth: dry mucous membranes Eyes PERRL, EOMs intact bilaterally and conjunctivae normal Neck no lymphadenopathy Resp normal respiratory effort and clear to auscultation bilaterally Cardio regular rate, regular rhythm and no murmurs Peripheral Pulses: pulses 2+ throughout GI normal to inspection, nondistended, normoactive bowel sounds, non-tender and non-distended Extremity normal to inspection Skin no rashes or lesions noted Lesions: no lesions Rashes: no rashes Trauma: no lacerations or abrasions Neuro CN's II-XII intact bilaterally, no focal motor deficits, no sensory deficits noted and deep tendon reflexes 2+ bilaterally Psych mental status grossly normal and affect normal Results Lab / Micro Data Result Diagrams: 10/16/21 06:45 10/16/21 06:45 Labs: Laboratory Results - last 24 hr 10/16/21 06:45: WBC 10.3, RBC 3.75 L, Hgb 11.7 L, Hct 31.3 L, MCV 83.5, MCH 31.2, MCHC 37.4 H, RDW Std Deviation 35.3, RDW Coeff of Keven 11.5 L, Plt Count 265, MPV 11.1, Immature Gran % (Auto) 0.600, Neut % (Auto) 78.1 H, Lymph % (Auto) 12.2 L, [place] % (Auto) 8.5, Eos % (Auto) 0.2, Baso % (Auto) 0.4, Absolute Neuts (auto) 8.0 H, Absolute Lymphs (auto) 1.25, Nucleated RBC % 0 10/16/21 06:45: Sodium 113 L*, Potassium 3.8, Chloride 78 L, Carbon Dioxide 22.0, Anion Gap 13, BUN 28 H, Creatinine 1.33 H, Estim Creat Clear Calc 28.43, Est GFR (MDRD) Af Amer 50 L, Est GFR (MDRD) Non-Af 42 L, BUN/Creatinine Ratio 21.1 H, Glucose 98, Calcium 8.8, Total Bilirubin 1.50 H, AST 54 H, ALT 32, Alkaline Phosphatase 72, Total Protein 7.9, Albumin 4.0, Globulin 3.9, Albumin/Globulin Ratio 1.0 Micro: Microbiology 10/16/21 09:38 Nasal Secretion SARS-CoV-2 Antigen (Rapid) - Final Radiology Impression Brain CT 10/16/21 06:35 IMPRESSION: Negative unenhanced CT scan of the brain. Electronically Signed: Ad Potts MD at 7:18 EST Reading Location ID and State: [facility] / [place] Tel , Service support , Assessment & Plan Assessment/Plan (1) Hyponatremia: (2) Fall: PLAN: 1. Acute hyponatremia-suspect secondary to poor oral intake as well as HCTZ. Hold HCTZ. IV fluids. Trend BMP. If no significant improvement with hydration, will obtain urine studies, cortisol. Recent TSH normal. 2. Weakness with fall- secondary to above. PT/OT. 3. Hypertension-HCTZ on hold. Continue lisinopril. 4. Chronic anemia-at baseline. 5. Restless leg syndrome-continue Requip. 6. BILL-does not wear CPAP. DVT prophylaxis- heparin sc This patient was seen by RICKIE Palmer under the supervision of Dr. Vivas. Time spent examining patient, reviewing data and subsequent management of care: 17 minutes Documented by User: Dr. Devon Vivas DO 10/16/21 16:07 HPI - General General Date of Admission: 10/16/21 [facility] Medical History Anemia Anxiety and depression Arthritis Back pain Cataracts, bilateral Depression Difficulty balancing Fatigue GERD (gastroesophageal reflux disease) Hearing problem Hemorrhoids High cholesterol History of pneumonia HTN (hypertension) Hypertensive urgency Hypoglycemia Incontinence Irritable bowel syndrome (IBS) Kidney stone Knee pain Limb weakness Lipoma Osteopenia Restless leg syndrome Seasonal allergies Shoulder pain Sleep apnea treated with nocturnal BiPAP SOB (shortness of breath) Vision problems Vitamin deficiency Home Medications ropinirole 0.5 mg PO QHS 12/02/16 [History Last Taken 10/15/21] ibandronate 150 mg PO QMONTH 05/01/19 [History Last Taken 09/24/21] loratadine 10 mg PO DAILY 05/01/19 [History Last Taken 10/15/21] szspdpxknfqr-rglmdanc-wjbznrv-folic acid 400 mcg-vit K1 20 mcg tablet 1 tab PO DAILY tab 05/22/19 [History Last Taken 10/15/21] lisinopril 40 mg tablet 40 mg PO DAILY #30 tab 04/08/20 [Rx Last Taken 10/15/21] bisacodyl 5 mg tablet,delayed release 5 mg PO DAILY PRN PRN 06/14/21 [History Last Taken Unknown] famotidine 20 mg tablet 20 mg PO BID 06/14/21 [History Last Taken 10/15/21] ferrous sulfate [FeroSul] 325 mg PO MOWEFR 10/16/21 [History Last Taken 10/13/21] hydrochlorothiazide 12.5 mg PO DAILY 10/16/21 [History Last Taken 10/15/21] propylene glycol [Systane Balance] 2 drp EACH EYE DAILY PRN PRN 10/16/21 [History Last Taken Unknown] sennosides-docusate sodium [Senna Plus] 1 tab PO BID 10/16/21 [History Last Taken 10/15/21] Allergy/AdvReac Type Severity Reaction Status Date / Time cigarette smoke Allergy Unknown Verified 06/14/21 12:55 erythromycin base Allergy Vomiting Verified 06/14/21 12:55 grass pollen Allergy Unknown Verified 06/14/21 12:55 azithromycin AdvReac Vomiting Verified 06/14/21 12:55 Latex, Natural Rubber AdvReac Rash Verified 06/14/21 12:55 Family History (Reviewed 10/16/21 @ 12:58 by Reyna Peacock DIAGNOSTIC SALES SPECIALIST, DIAGNOSTIC SALES SPECIALIST-C) Father Myocardial infarction Respiratory disease Mother CVA (cerebral vascular accident) Brain tumor History of blood clots Bowel disease Anxiety and depression Epilepsy Hormone deficiency Seizures Allergy to antibiotic Daughter defect Sister Heart disease Rheumatic fever Other Tuberculosis Surgical History (Reviewed 10/16/21 @ 12:58 by Reyna Peacock DIAGNOSTIC SALES SPECIALIST, DIAGNOSTIC SALES SPECIALIST-C) History of neck surgery History of nephrolithotomy with removal of calculi Lipoma Social History Smoking Status: Never smoker alcohol intake: never substance use type: does not use additional social history: DOES USE ASPIRIN DOES NOT USE IBUPROFEN Results Lab / Micro Data Result Diagrams: 10/16/21 06:45 10/16/21 06:45 Charges/Coding Addendum Addendum: Patient was seen and examined today independently of Reyna Peacock, she was transported to the emergency room today at [facility] for evaluation following a fall. Patient states that she was standing in her bathroom and attempted to go back to her bed but fell, she denies tripping on anything, she denies any syncope. Patient states that her legs were just weak and they gave out, work-up in the emergency room included labs which showed the patient to have hyponatremia and hypochloremia. Patient's hemoglobin was slightly low at 11.7, creatinine was elevated at 1.33, BUN was 28, bilirubin was elevated at 1.5, AST was elevated at 54, and CT of the brain was unremarkable. On examination she appeared older than her stated age, she was appropriate,, she does not appear to be in any distress. Vital signs as documented. Skin warm and dry and without overt rashes. Neck without JVD, thyroid appears normal, trachea is midline, neck is supple. Lungs clear, normal air movement was noted. Heart exam notable for regular rhythm, normal sounds and absence of murmurs, rubs or gallops. Abdomen unremarkable and without evidence of organomegaly, masses, or abdominal aortic enlargement, bowel sounds are present in all 4 quadrants, no abdominal tenderness was noted. Extremities nonedematous, no cyanosis was noted, no clubbing was noted. Neuro: Cranial nerves II through XII are grossly intact, no focal motor deficits were noted, sensation to light touch and pinprick is intact, motor exam 5/5 throughout. Psych: Patient is alert and oriented x3, she does not appear anxious or depressed, she does not appear agitated. Impression: #1 hyponatremia--probably secondary to diuretic usage, patient's hydrochlorothiazide will be held, labs will be monitored, patient will be given IV fluids, she will be placed in observation status on PCU and monitored on telemetry. #2 dehydration on a backdrop of chronic kidney disease IIIa-again patient will be given IV fluids, labs will be rechecked #3 elevated bilirubin-etiology unclear, patient will have a liver profile ordered tomorrow morning #4 essential hypertension-patient's hydrochlorothiazide will be held, she will remain on her other medications for blood pressure #5 chronic debility-I will have PT and OT see the patient, she states she has been in a intermediate since April 2021. #6 chronic anemia-etiology unclear, I do not feel the patient needs a blood transfusion at this time, I do not feel the patient CBC needs to be repeated tomorrow. I have reviewed Reyna Peacock's history and physical including her medical assessment and plan of care and endorse it with the above additions. My total clinical time addressing the patient's medical issues, reviewing all of her data, and collaborating with the patient's care team: 58 minutes Visit Charges OBSV E&M: 18510 Initial observation care L3
--- NOTE | 2021-10-16 14:32 | PCS.PANDOC ---
PANDEMIC DOCUMENTATION INITIATED: Date: 05/01/2021 Time: 190
--- NOTE | 2021-10-16 15:22 | CASEMGMT ---
Patient is from [facility] ([facility]). ALLEN faxed updates to [facility]. Jess ZAVALA
--- NOTE | 2021-10-16 17:07 | CHAPLAIN ---
Type of Pastoral Visit _x__ Initial Visit ___ Follow-up Visit ___ On-call Visit ___ General Patient Visit ___ Spiritual Assessment ___ Family Conference ___ Bereavement ___ Rapid Response ___ Code Blue ___ Other (describe below) Pastoral Care Referral From _x__ Patient ___ Family ___ Nurse ___ Physician ___ Dyed Raw Stock Blower Feeder ___ Policy Specialist ___ Other (describe below) Sacrament/Intervention _x__ Active listening ___ Anointing ___ Cheondoism ___ Bereavement ___ Communion ___ Radha exploration ___ _x__ Life review _x__ Prayer ___ Reconciliation ___ Sacrament of Sick ___ Supportive presence ___ Wedding ___ Other (describe below) Pastoral Comments
[2021-10-16 17:17] LABS: Mucous, Urine 0 SEEN /hpf (<or=2+); Red Blood Cells-Urine 0 SEEN /hpf (0-5); Squamous Epithelial Cells - UA 0 SEEN /hpf (5-10)
[2021-10-16 17:26] LABS: Color, Urine Yellow (Yellow); Glucose, Dipstick Normal (Normal); Ketone-Dipstick 5 mg/dl (Negative); Leukocyte Esterase-Dipstick 500 /ul (Negative); Nitrite-Dipstick Negative (Negative); Occult Blood-Urine Negative /ul (Negative); Protein-Dipstick Negative (Negative); Urine Bilirubin Dipstick Negative (Negative); Urine Clarity Clear (Clear); Urine Urobilinogen Normal (Normal)
[2021-10-16 17:43] LABS: Bacteria 1+ /hpf (None Seen); White Blood Cells 0-5 SEEN /hpf (0-5)
[2021-10-16 18:12] LABS: Anion Gap 9 (5-15); BUN 23 mg/dL (7-18); BUN/Creat Ratio 18.3 RATIO (10-20); Calcium,Total 8.1 mg/dL (8.5-10.1); Chloride 89 mmol/L (98-107); Creatinine, Serum 1.26 mg/dL (0.55-1.02); EST Glomerular Filtration Rate 44 mL/min (>60); Est Glom Filt Rate - Afr Amer 53 mL/min (>60); Estimated Creatinine Clearance 28.56 ml/min; Glucose 90 mg/dL (74-106); Potassium 4.1 mmol/L (3.5-5.1); Sodium Level 120 mmol/L (136-145)
[2021-10-16] MEDS: Pramipexole Di-HCl 0.25 MG Tablet PO (21:55)
[2021-10-17] MEDS: 0.9% Normal Saline 1,000 ML 75 ML IV (01:00)
[2021-10-17 02:00] VITALS: PULSE 63
[2021-10-17 02:10] VITALS: BP 122/63; PULSE 63; RESP 15; TEMP 36.6; O2SAT 98
[2021-10-17 04:32] LABS: ALB/GLOB Ratio 1.1 RATIO (0.9-2.4); AST(SGOT) 19 U/L (15-37); Alanine Aminotransfer ALT/SGPT 21 U/L (13-56); Albumin, Serum 3.2 g/dL (3.2-5.0); Alkaline Phosphatase 55 U/L (45-117); Anion Gap 7 (5-15); BUN 17 mg/dL (7-18); BUN/Creat Ratio 18.2 RATIO (10-20); Calcium,Total 7.8 mg/dL (8.5-10.1); Chloride 100 mmol/L (98-107); Creatinine, Serum 0.94 mg/dL (0.55-1.02); EST Glomerular Filtration Rate 62 mL/min (>60); Est Glom Filt Rate - Afr Amer 75 mL/min (>60); Estimated Creatinine Clearance 38.29 ml/min; Glucose 85 mg/dL (74-106); Potassium 3.7 mmol/L (3.5-5.1); Protein, Total 6.2 g/dL (6.4-8.2); Sodium Level 131 mmol/L (136-145)
[2021-10-17 07:34] VITALS: PULSE 58
[2021-10-17 08:10] VITALS: BP 126/59; PULSE 67; RESP 16; TEMP 36.3; O2SAT 99
[2021-10-17] MEDS: Famotidine 20 MG Tablet PO (08:47)
[2021-10-17] MEDS: Aspirin 81 MG TAB.CHEW PO (08:47)
[2021-10-17] MEDS: Heparin Injection (Vial) 5,000 UNIT/ML VIAL 5000 UNIT SC (08:47)
[2021-10-17] MEDS: Lisinopril 40 MG Tablet PO (08:47)
--- NOTE | 2021-10-17 10:21 | TREXTCAR_ITS ---
Documented by User: Reyna Peacock CONSULTANT TECHNOLOGY, CONSULTANT TECHNOLOGY-C 10/17/21 10:27 Diet 10/16/21 09:50 Diet: Regular - General Food consistency:: Regular Liquid Consistency:: Regular/Thin Type of Dietary Supplement:: Ensure Enlive Diet Comments: 4 oz ensure enlive w/ meals tid Routine Orders/Code Status Enema Type: Fleetz Enema Frequency: Daily PRN Suppository Type: Dulcolax 10mg Suppository Frequency: Daily PRN Routine Lab Work: - (Repeat BMP in 1 week) Code Status: DNRCC-A (No intubation) Suggestions for Active Care Change Position every (hours): 2 Times a day to sit in chair: 3 Therapies Physical Therapy: Eval and Treat Occupational Therapy: Eval and Treat Problem/Diagnosis (1) Hyponatremia: Status: Acute (2) Fall: Status: Acute Allergies/Procedures Done in Hospital Allergies cigarette smoke Allergy (Verified 06/14/21 12:55) Unknown erythromycin base Allergy (Verified 06/14/21 12:55) Vomiting grass pollen Allergy (Verified 06/14/21 12:55) Unknown azithromycin Adverse Reaction (Verified 06/14/21 12:55) Vomiting Latex, Natural Rubber Adverse Reaction (Verified 06/14/21 12:55) Rash Procedures: None Type of Care/Length of Stay Estimated LOS: More Than 30 Days Type of Care Needed: Skilled Rehab Potential: Fair Prognosis: Fair Additional Orders/Day of Discharge H&P will serve as current which was dated: 10/16/21 Day of Discharge: 10/17/21 Dietary and Speech Recommendations Dietitian Recommendations/Changes: Will continue liberal regular diet and provide 4 oz ensure enlive w/ meals for increased nutrition if consumed Will attempt to interview pt at time of follow up re: diet/wt hx, etc and make further rec as indicated Discharge Plan Admission Admit Date/Time: 10/16/21 08:38 Primary Reason for Your Visit: Hyponatremia, fall Attending Provider: Devon Vivas Primary Care Provider: Alejandro Jordan Discharge Orders/Prescriptions Prescriptions: Continued One-A-Day Women's 50 Plus 400-20 mcg tablet 1 tab PO DAILY RF: 0 bisacodyl [Bisa-Lax (bisacodyl)] 5 mg tablet,delayed release (DR/EC) 5 mg PO DAILY PRN PRN (Reason: Constipation) RF: 0 famotidine 20 mg tablet 20 mg PO BID RF: 0 ropinirole 0.5 MG tablet 0.5 mg PO QHS RF: 0 loratadine 10 MG tablet 10 mg PO DAILY RF: 0 ibandronate 150 MG tablet 150 mg PO QMONTH RF: 0 ferrous sulfate [FeroSul] 325 mg (65 mg iron) Tablet 325 mg PO MOWEFR RF: 0 Systane Balance 0.6 % Drops 2 drp EACH EYE DAILY PRN PRN (Reason: Dry Eyes) RF: 0 Senna Plus 8.6-50 mg Capsule 1 tab PO BID RF: 0 lisinopril 40 mg tablet 40 mg PO DAILY Qty: 30 RF: 11 Discontinued hydrochlorothiazide 12.5 mg capsule 12.5 mg PO DAILY RF: 0 Referrals / Follow Up: Alejandro Jordan MD [Primary Care Provider] - In 1 Week Disposition Disposition (needs filled in before D/C Order can be placed): [facility] Facility Documented by User: Dr. Devon Vivas DO 10/17/21 10:42 Allergies/Procedures Done in Hospital Allergies cigarette smoke Allergy (Verified 06/14/21 12:55) Unknown erythromycin base Allergy (Verified 06/14/21 12:55) Vomiting grass pollen Allergy (Verified 06/14/21 12:55) Unknown azithromycin Adverse Reaction (Verified 06/14/21 12:55) Vomiting Latex, Natural Rubber Adverse Reaction (Verified 06/14/21 12:55) Rash Discharge Plan Admission Admit Date/Time: 10/16/21 08:38 Primary Reason for Your Visit: Hyponatremia, fall Attending Provider: Devon Vivas Primary Care Provider: Alejadnro Jordan Discharge Orders/Prescriptions Prescriptions: Continued One-A-Day Women's 50 Plus 400-20 mcg tablet 1 tab PO DAILY RF: 0 bisacodyl [Bisa-Lax (bisacodyl)] 5 mg tablet,delayed release (DR/EC) 5 mg PO DAILY PRN PRN (Reason: Constipation) RF: 0 famotidine 20 mg tablet 20 mg PO BID RF: 0 ropinirole 0.5 MG tablet 0.5 mg PO QHS RF: 0 loratadine 10 MG tablet 10 mg PO DAILY RF: 0 ibandronate 150 MG tablet 150 mg PO QMONTH RF: 0 ferrous sulfate [FeroSul] 325 mg (65 mg iron) Tablet 325 mg PO MOWEFR RF: 0 Systane Balance 0.6 % Drops 2 drp EACH EYE DAILY PRN PRN (Reason: Dry Eyes) RF: 0 Senna Plus 8.6-50 mg Capsule 1 tab PO BID RF: 0 lisinopril 40 mg tablet 40 mg PO DAILY Qty: 30 RF: 11 Discontinued hydrochlorothiazide 12.5 mg capsule 12.5 mg PO DAILY RF: 0 Referrals / Follow Up: Alejandro Jordan MD [Primary Care Provider] - In 1 Week Disposition Disposition (needs filled in before D/C Order can be placed): [facility] Facility
--- NOTE | 2021-10-17 10:25 | CASEMGMT ---
This RN TEJAL to room with DOBSON form, explanation done-pt voices understanding, and signs DOBSON form at this time. Original to chart and copy to pt. Pt voices no further questions/concerns/needs. S[place]en JOEL CM
--- NOTE | 2021-10-17 10:27 | PCM.DC.SUM ---
Documented by User: Reyna Peacock NP, CRACKING MACHINE OPERATOR-C 10/17/21 10:39 Providers Date of Admission: 10/16/21 Date of Discharge: 10/17/21 Primary Care Physician: Dr. Alejandro Jordan MD Reason For Visit: HYPONATREMIA Diagnosis Discharge Diagnosis (1) Hyponatremia: Status: Acute Code(s): E87.1 - Hypo-osmolality and hyponatremia (2) Fall: Status: Acute Code(s): W19.XXXA - Unspecified fall, initial encounter Medications at Discharge Home Medications ropinirole 0.5 mg PO QHS 12/02/16 ibandronate 150 mg PO QMONTH 05/01/19 loratadine 10 mg PO DAILY 05/01/19 rqyfwlufvufm-bnpurztm-crmpvki-folic acid 400 mcg-vit K1 20 mcg tablet 1 tab PO DAILY tab 05/22/19 lisinopril 40 mg tablet 40 mg PO DAILY #30 tab 04/08/20 bisacodyl 5 mg tablet,delayed release 5 mg PO DAILY PRN PRN 06/14/21 famotidine 20 mg tablet 20 mg PO BID 06/14/21 Senna Plus 1 tab PO BID 10/16/21 Systane Balance 2 drp EACH EYE DAILY PRN PRN 10/16/21 ferrous sulfate [FeroSul] 325 mg PO MOWEFR 10/16/21 Hospital Course Operations None Procedures None Summary of Care Provided Hospital Course: Patient is a 75-year-old female admitted 10/16/2021 due to fall. 1. Acute hyponatremia- secondary to poor oral intake as well as HCTZ. HCTZ discontinued. Sodium significantly improved. Repeat BMP in 1 week at SNF. Encouraged oral intake. Patient reports poor oral intake over the past week following recent Covid. Denies nausea, vomiting. Follow-up with PCP in 1 week. 2. Weakness with fall- secondary to above. PT/OT. Return to SNF with therapies. 3. Hypertension-HCTZ discontinued. Continue lisinopril. 4. Chronic anemia-at baseline. 5. Restless leg syndrome-continue Requip. 6. BILL-does not wear CPAP. 7. Recent covid 19-repeat test during admission 10/16/2021 negative. Physical Exam Const alert, oriented x3 and no apparent distress Orientation / Consciousness: awake, oriented to person, oriented to place and oriented to time HEENT normocephalic Mouth: moist mucous membranes Eyes PERRL, EOMs intact bilaterally and conjunctivae normal Neck no lymphadenopathy Resp normal respiratory effort and clear to auscultation bilaterally Cardio regular rate, regular rhythm and no murmurs Peripheral Pulses: pulses 2+ throughout GI normal to inspection, nondistended, normoactive bowel sounds, non-tender and non-distended Extremity normal to inspection Skin no rashes or lesions noted Lesions: no lesions Rashes: no rashes Trauma: no lacerations or abrasions Neuro CN's II-XII intact bilaterally, no focal motor deficits, no sensory deficits noted and deep tendon reflexes 2+ bilaterally Psych mental status grossly normal and affect normal Patient seen and examined prior to discharge. Physical assessment as noted above. Patient is stable for discharge with follow up recommendations as noted above. This patient was seen by RICKIE Palmer under the supervision of Dr. Vivas. Time spent examining patient, reviewing data and subsequent management of care: 14 Minutes Weight / BMI Weight Weight: 119 lb 12.8 oz Body Mass Index (BMI) 23.3 ABG / Lab / Microbiology Data Result Diagrams: 10/16/21 06:45 10/17/21 03:38 Laboratory: Laboratory Results - last 24 hr 10/16/21 17:05: Urine Color Yellow, Urine Clarity Clear, Urine pH 6.0, Ur Specific [place] 1.010, Urine Protein Negative, Urine Glucose (UA) Normal, Urine Ketones 5 H, Urine Occult Blood Negative, Urine Nitrite Negative, Urine Bilirubin Negative, Urine Urobilinogen Normal, Ur Leukocyte Esterase 500 H, Urine RBC 0 SEEN, Urine WBC 0-5 SEEN, Ur Squamous Epith Cells 0 SEEN, Urine Bacteria 1+, Urine Mucus 0 SEEN 10/16/21 17:05: Sodium 120 L, Potassium 4.1, Chloride 89 L, Carbon Dioxide 22.0, Anion Gap 9, BUN 23 H, Creatinine 1.26 H, Estim Creat Clear Calc 28.56, Est GFR (MDRD) Af Amer 53 L, Est GFR (MDRD) Non-Af 44 L, BUN/Creatinine Ratio 18.3, Glucose 90, Calcium 8.1 L 10/17/21 03:38: Sodium 131 L, Potassium 3.7, Chloride 100, Carbon Dioxide 24.0, Anion Gap 7, BUN 17, Creatinine 0.94, Estim Creat Clear Calc 38.29, Est GFR (MDRD) Af Amer 75, Est GFR (MDRD) Non-Af 62, BUN/Creatinine Ratio 18.2, Glucose 85, Calcium 7.8 L, Total Bilirubin 1.00, AST 19, ALT 21, Alkaline Phosphatase 55, Total Protein 6.2 L, Albumin 3.2, Globulin 3.0, Albumin/Globulin Ratio 1.1 Microbiology: Microbiology 10/16/21 09:38 Nasal Secretion SARS-CoV-2 Antigen (Rapid) - Final Meaningful Use Info Meaningful Use Diagnoses (Choose all that apply): None applicable Discharge Plan Admission Admit Date/Time: 10/16/21 08:38 Primary Reason for Your Visit: Hyponatremia, fall Attending Provider: Devon Vivas Primary Care Provider: Alejandro Jordan Discharge Orders/Prescriptions Prescriptions: Continued One-A-Day Women's 50 Plus 400-20 mcg tablet 1 tab PO DAILY RF: 0 bisacodyl [Bisa-Lax (bisacodyl)] 5 mg tablet,delayed release (DR/EC) 5 mg PO DAILY PRN PRN (Reason: Constipation) RF: 0 famotidine 20 mg tablet 20 mg PO BID RF: 0 ropinirole 0.5 MG tablet 0.5 mg PO QHS RF: 0 loratadine 10 MG tablet 10 mg PO DAILY RF: 0 ibandronate 150 MG tablet 150 mg PO QMONTH RF: 0 ferrous sulfate [FeroSul] 325 mg (65 mg iron) Tablet 325 mg PO MOWEFR RF: 0 Systane Balance 0.6 % Drops 2 drp EACH EYE DAILY PRN PRN (Reason: Dry Eyes) RF: 0 Senna Plus 8.6-50 mg Capsule 1 tab PO BID RF: 0 lisinopril 40 mg tablet 40 mg PO DAILY Qty: 30 RF: 11 Discontinued hydrochlorothiazide 12.5 mg capsule 12.5 mg PO DAILY RF: 0 Referrals / Follow Up: Alejandro Jordan MD [Primary Care Provider] - In 1 Week Disposition Disposition (needs filled in before D/C Order can be placed): [facility] Facility Documented by User: Dr. Devon Vivas DO 10/17/21 18:57 Providers Date of Admission: 10/16/21 Reason For Visit: HYPONATREMIA Medications at Discharge Home Medications ropinirole 0.5 mg PO QHS 12/02/16 ibandronate 150 mg PO QMONTH 05/01/19 loratadine 10 mg PO DAILY 05/01/19 qqfllfrjtglj-qqytpsmv-mqmsdkv-folic acid 400 mcg-vit K1 20 mcg tablet 1 tab PO DAILY tab 05/22/19 lisinopril 40 mg tablet 40 mg PO DAILY #30 tab 04/08/20 bisacodyl 5 mg tablet,delayed release 5 mg PO DAILY PRN PRN 06/14/21 famotidine 20 mg tablet 20 mg PO BID 06/14/21 Senna Plus 1 tab PO BID 10/16/21 Systane Balance 2 drp EACH EYE DAILY PRN PRN 10/16/21 ferrous sulfate [FeroSul] 325 mg PO MOWEFR 10/16/21 ABG / Lab / Microbiology Data Result Diagrams: 10/16/21 06:45 10/17/21 03:38 Discharge Plan Admission Admit Date/Time: 10/16/21 08:38 Primary Reason for Your Visit: Hyponatremia, fall Attending Provider: Devon Vivas Primary Care Provider: Alejandro Jordan Discharge Orders/Prescriptions Prescriptions: Continued One-A-Day Women's 50 Plus 400-20 mcg tablet 1 tab PO DAILY RF: 0 bisacodyl [Bisa-Lax (bisacodyl)] 5 mg tablet,delayed release (DR/EC) 5 mg PO DAILY PRN PRN (Reason: Constipation) RF: 0 famotidine 20 mg tablet 20 mg PO BID RF: 0 ropinirole 0.5 MG tablet 0.5 mg PO QHS RF: 0 loratadine 10 MG tablet 10 mg PO DAILY RF: 0 ibandronate 150 MG tablet 150 mg PO QMONTH RF: 0 ferrous sulfate [FeroSul] 325 mg (65 mg iron) Tablet 325 mg PO MOWEFR RF: 0 Systane Balance 0.6 % Drops 2 drp EACH EYE DAILY PRN PRN (Reason: Dry Eyes) RF: 0 Senna Plus 8.6-50 mg Capsule 1 tab PO BID RF: 0 lisinopril 40 mg tablet 40 mg PO DAILY Qty: 30 RF: 11 Discontinued hydrochlorothiazide 12.5 mg capsule 12.5 mg PO DAILY RF: 0 Referrals / Follow Up: Alejandro Jordan MD [Primary Care Provider] - In 1 Week Disposition Disposition (needs filled in before D/C Order can be placed): [facility] Facility Charges/Coding Addendum Addendum: Patient was seen and examined today independently of Reyna Peacock, her sodium this morning was 131, patient is alert and appropriate. On examination she appeared in good health and spirits, she does not appear to be in any distress. Vital signs as documented. Skin warm and dry and without overt rashes. Neck without JVD, thyroid appears normal, trachea is midline, neck is supple. Lungs clear, normal air movement was noted. Heart exam notable for regular rhythm, normal sounds and absence of murmurs, rubs or gallops. Abdomen unremarkable and without evidence of organomegaly, masses, or abdominal aortic enlargement, bowel sounds are present in all 4 quadrants, no abdominal tenderness was noted. Extremities nonedematous, no cyanosis was noted, no clubbing was noted. Neuro: Cranial nerves II through XII are grossly intact, no focal motor deficits were noted, sensation to light touch and pinprick is intact, motor exam 5/5 throughout. Psych: Patient is alert and oriented x3, she does not appear anxious or depressed, she does not appear agitated. Impression: Hyponatremia-probably secondary to diuretic usage, she appears medically stable return to the correction facility at this time, her diuretics will be discontinued #2 dehydration-patient's creatinine today was 0.94, she will need repeat labs in the correction facility in the near future. Patient's diuretics will be discontinued. #3 essential hypertension-patient will remain on lisinopril #4 acute debility-secondary to hyponatremia and dehydration-patient will need further therapy at correction facility #5 chronic anemia-etiology unclear #6 obstructive sleep apnea-noncompliant with CPAP Patient did not have stage IIIa chronic kidney disease I have reviewed Reyna Peacock's discharge summary including her medical assessment and plan of care and with the above additions endorse it. Total clinical time spent by myself on this patient including addressing the patient's medical issues, reviewing all of her medical data, and collaborating with the patient's care team: 20 minutes. Visit Charges Inpatient E&M: [id number] Disch Hosp
--- NOTE | 2021-10-17 10:37 | CASEMGMT ---
Patient is ready for discharge back to [facility] ([facility]). ALLEN called [facility] and notified Sherrill in admissions that patient will be returning today. Jess ZAVALA
--- NOTE | 2021-10-17 11:30 | CASEMGMT ---
ALLEN arranged for patient to get picked up at 1330 via wheelchair van. SW faxed orders and draft roller picker time to [facility]. ALLEN spoke with patient and she did not need SW to call anyone about d/c. Plan: d/c back to [facility] under intermediate level of care. [facility] transported via wheelchair van. Jess Dumont PAPER BUNDLER SALLY
== END 2021-10-17 10:23 | disposition skilled nursing facility (03) ==
LOC: ED 07:35 → PCU 09:08
PROVIDERS: Admitting Provider Internal Medicine; Emergency Provider Emergency Medicine; PCP Family Medicine; Visit Provider Internal Medicine
DX: E87.1 Hypo-osmolality and hyponatremia (principal); N18.31 Chronic kidney disease, stage 3a; S09.90XA Unspecified injury of head, initial encounter; W19.XXXA Unspecified fall, initial encounter; D64.9 Anemia, unspecified; E78.00 Pure hypercholesterolemia, unspecified; E87.8 Other disorders of electrolyte and fluid balance, not elsewhere classified; G47.33 Obstructive sleep apnea (adult) (pediatric); G25.81 Restless legs syndrome; K58.9 Irritable bowel syndrome, unspecified; I12.9 Hypertensive chronic kidney disease with stage 1 through stage 4 chronic kidney disease, or unspecified chronic kidney disease; Z79.83 Long term (current) use of bisphosphonates; Z91.19 Patient's noncompliance with other medical treatment and regimen; E86.0 Dehydration; J02.9 Acute pharyngitis, unspecified; K21.9 Gastro-esophageal reflux disease without esophagitis; Y93.01 Activity, walking, marching and hiking; Y92.129 Unspecified place in nursing home as the place of occurrence of the external cause; Z86.16 Personal history of COVID-19; Z79.899 Other long term (current) drug therapy
CPT/HCPCS: 36415; 70450; 80048; 80053; 81001; 85025; 87426; 96360; 96361; 96372; 97162; 97166; 97535; 99218; 99285; J7030; A4216; G0378

== ENCOUNTER → 2021-10-18 | Outpatient (REF) | payer SELFPAY ==
[2021-10-23 14:36] LABS: BUN 12 mg/dL (7-18); Glucose 107 mg/dL (74-106)
[2021-10-23 14:37] LABS: Anion Gap 11 (5-15); BUN/Creat Ratio 14.5 RATIO (10-20); Calcium,Total 8.9 mg/dL (8.5-10.1); Chloride 95 mmol/L (98-107); Creatinine, Serum 0.83 mg/dL (0.55-1.02); EST Glomerular Filtration Rate 72 mL/min (>60); Est Glom Filt Rate - Afr Amer 87 mL/min (>60); Potassium 3.8 mmol/L (3.5-5.1); Sodium Level 131 mmol/L (136-145)
== END | disposition home or self-care (01) ==
LOC: OLS.WCC 21:39
PROVIDERS: PCP Family Medicine; Referring Provider Family Medicine; Visit Provider Family Medicine
DX: D64.9 Anemia, unspecified (principal); I10 Essential (primary) hypertension
CPT/HCPCS: 36415; 80048

== ENCOUNTER → 2021-10-25 | Outpatient (REF) | payer MEDICARE, SELFPAY ==
[2021-10-25 09:15] LABS: Hematocrit 28.6 % (37-47); Hemoglobin 9.4 g/dL (12.0-15.0); Mean Corp Hgb Conc 32.9 g/dL (32-36); Mean Corpuscular Hgb 31.8 pg (27.0-32.0); Mean Corpuscular Volume 96.6 fL (81-99); POSITIVE COUNT YES; RBC Distribution Width CV 12.9 % (11.6-14.6); RBC Distribution Width SD 45.3 fl (35.1-43.9); Red Blood Count 2.96 M/mm3 (4.2-5.4)
[2021-10-25 09:21] LABS: Anion Gap 6 (5-15); BUN 14 mg/dL (7-18); Calcium,Total 8.8 mg/dL (8.5-10.1); Chloride 106 mmol/L (98-107); Creatinine, Serum 1.08 mg/dL (0.55-1.02); EST Glomerular Filtration Rate 53 mL/min (>60); Est Glom Filt Rate - Afr Amer 64 mL/min (>60); Glucose 88 mg/dL (74-106); Sodium Level 138 mmol/L (136-145); Thyroid Stim Hormone (TSH) 1.36 uIU/mL (0.358-3.74)
[2021-10-25 09:45] LABS: Scan Indicated on CBC? Y/N YES- FLAGS NOTED
== END | disposition home or self-care (01) ==
LOC: OLS.WCC 05:00
PROVIDERS: PCP Family Medicine; Visit Provider Family Medicine
DX: D64.9 Anemia, unspecified (principal); I10 Essential (primary) hypertension; E03.9 Hypothyroidism, unspecified; Z79.899 Other long term (current) drug therapy
CPT/HCPCS: 36415; 80048; 84443; 85027

== ENCOUNTER → 2021-10-28 | Outpatient (REF) | payer SELFPAY ==
[2021-10-28 18:52] LABS: Color, Urine Yellow (Yellow); Glucose, Dipstick Normal (Normal); Ketone-Dipstick Negative (Negative); Leukocyte Esterase-Dipstick 500 /ul (Negative); Nitrite-Dipstick Negative (Negative); Occult Blood-Urine 10 /ul (Negative); Protein-Dipstick Negative (Negative); Specific Gravity, Urine 1.015 (1.002-1.030); Urine Bilirubin Dipstick Negative (Negative); Urine Clarity Clear (Clear); Urine Urobilinogen Normal (Normal)
== END | disposition home or self-care (01) ==
LOC: OLS.WCC 18:48
PROVIDERS: PCP Family Medicine; Visit Provider Family Medicine
DX: R30.0 Dysuria (principal); R41.0 Disorientation, unspecified
CPT/HCPCS: 81002; 87086

== ENCOUNTER → 2021-10-30 | Outpatient (REF) | payer MEDICARE, SELFPAY ==
[2021-10-30 11:46] LABS: Hematocrit 30.6 % (37-47); Hemoglobin 10.4 g/dL (12.0-15.0); Mean Corpuscular Hgb 32.9 pg (27.0-32.0); Mean Corpuscular Volume 96.8 fL (81-99); Mean Platelet Vol. 12.8 fl (6.2-12.0); POSITIVE COUNT YES; RBC Distribution Width CV 13.1 % (11.6-14.6); RBC Distribution Width SD 45.9 fl (35.1-43.9); Red Blood Count 3.16 M/mm3 (4.2-5.4); White Blood Count 4.4 K/mm3 (4.4-11.0)
[2021-10-30 12:16] LABS: Anion Gap 8 (5-15); BUN 12 mg/dL (7-18); Calcium,Total 8.9 mg/dL (8.5-10.1); Chloride 106 mmol/L (98-107); Creatinine, Serum 0.92 mg/dL (0.55-1.02); EST Glomerular Filtration Rate 63 mL/min (>60); Est Glom Filt Rate - Afr Amer 77 mL/min (>60); Glucose 100 mg/dL (74-106); Potassium 3.8 mmol/L (3.5-5.1); Sodium Level 139 mmol/L (136-145)
[2021-10-30 12:21] LABS: Scan Indicated on CBC? Y/N YES- FLAGS NOTED
== END | disposition home or self-care (01) ==
LOC: OLS.WCC 04:00
PROVIDERS: PCP Family Medicine; Referring Provider Family Medicine; Visit Provider Family Medicine
DX: E87.1 Hypo-osmolality and hyponatremia (principal); D64.9 Anemia, unspecified; K21.9 Gastro-esophageal reflux disease without esophagitis
CPT/HCPCS: 36415; 80048; 85027

== ENCOUNTER → 2021-11-09 | Outpatient (REF) | payer SELFPAY ==
[2021-11-09 08:27] LABS: Anion Gap 7 (5-15); BUN 26 mg/dL (7-18); Calcium,Total 8.6 mg/dL (8.5-10.1); Chloride 107 mmol/L (98-107); Creatinine, Serum 1.24 mg/dL (0.55-1.02); EST Glomerular Filtration Rate 45 mL/min (>60); Est Glom Filt Rate - Afr Amer 54 mL/min (>60); Glucose 86 mg/dL (74-106); Potassium 4.3 mmol/L (3.5-5.1); Sodium Level 138 mmol/L (136-145)
== END | disposition home or self-care (01) ==
LOC: OLS.WCC 04:00
PROVIDERS: PCP Family Medicine; Referring Provider Family Medicine; Visit Provider Family Medicine
DX: D64.9 Anemia, unspecified (principal); E87.1 Hypo-osmolality and hyponatremia
CPT/HCPCS: 36415; 80048

== ENCOUNTER 2021-11-23 04:00 | Outpatient (REF) | payer MEDICARE, SELFPAY ==
[2021-11-23 08:48] LABS: Anion Gap 5 (5-15); BUN 20 mg/dL (7-18); BUN/Creat Ratio 15.4 RATIO (10-20); Calcium,Total 8.9 mg/dL (8.5-10.1); Chloride 103 mmol/L (98-107); EST Glomerular Filtration Rate 43 mL/min (>60); Est Glom Filt Rate - Afr Amer 52 mL/min (>60); Glucose 100 mg/dL (74-106); Potassium 4.5 mmol/L (3.5-5.1); Sodium Level 135 mmol/L (136-145)
== END 2021-11-23 23:59 | disposition home or self-care (01) ==
LOC: OLS.WCC 04:00
PROVIDERS: PCP Family Medicine; Referring Provider Family Medicine; Visit Provider Family Medicine
DX: I10 Essential (primary) hypertension (principal); Z79.899 Other long term (current) drug therapy
CPT/HCPCS: 36415; 80048

== ENCOUNTER → 2021-12-04 | Outpatient (REF) | payer MEDICARE, SELFPAY ==
[2021-12-04 08:42] LABS: BUN 28 mg/dL (7-18); Creatinine, Serum 1.29 mg/dL (0.55-1.02); EST Glomerular Filtration Rate 43 mL/min (>60); Glucose 97 mg/dL (74-106)
[2021-12-04 08:43] LABS: Anion Gap 3 (5-15); BUN/Creat Ratio 21.7 RATIO (10-20); Calcium,Total 8.6 mg/dL (8.5-10.1); Chloride 107 mmol/L (98-107); Est Glom Filt Rate - Afr Amer 52 mL/min (>60); Potassium 4.8 mmol/L (3.5-5.1); Sodium Level 137 mmol/L (136-145)
== END | disposition home or self-care (01) ==
LOC: OLS.WCC 05:15
PROVIDERS: PCP Family Medicine; Referring Provider Family Medicine; Visit Provider Family Medicine
DX: I10 Essential (primary) hypertension (principal); Z79.899 Other long term (current) drug therapy
CPT/HCPCS: 36415; 80048

== ENCOUNTER → 2021-12-20 | Outpatient (REF) | payer MEDICARE, SELFPAY ==
[2021-12-20 08:48] LABS: Anion Gap 3 (5-15); BUN 20 mg/dL (7-18); BUN/Creat Ratio 16.4 RATIO (10-20); Calcium,Total 8.4 mg/dL (8.5-10.1); Chloride 110 mmol/L (98-107); Creatinine, Serum 1.22 mg/dL (0.55-1.02); EST Glomerular Filtration Rate 46 mL/min (>60); Est Glom Filt Rate - Afr Amer 55 mL/min (>60); Glucose 90 mg/dL (74-106); Potassium 4.5 mmol/L (3.5-5.1); Sodium Level 141 mmol/L (136-145)
== END | disposition home or self-care (01) ==
LOC: OLS.WCC 06:00
PROVIDERS: PCP Family Medicine; Referring Provider Family Medicine; Visit Provider Family Medicine
DX: I10 Essential (primary) hypertension (principal); Z79.899 Other long term (current) drug therapy
CPT/HCPCS: 36415; 80048

== ENCOUNTER → 2022-01-03 | Outpatient (REF) | payer MEDICARE, SELFPAY ==
[2022-01-03 08:55] LABS: Anion Gap 5 (5-15); BUN 27 mg/dL (7-18); BUN/Creat Ratio 25.2 RATIO (10-20); Calcium,Total 8.1 mg/dL (8.5-10.1); Chloride 110 mmol/L (98-107); Creatinine, Serum 1.07 mg/dL (0.55-1.02); EST Glomerular Filtration Rate 53 mL/min (>60); Est Glom Filt Rate - Afr Amer 65 mL/min (>60); Glucose 88 mg/dL (74-106); Sodium Level 142 mmol/L (136-145)
== END | disposition home or self-care (01) ==
LOC: OLS.WCC 05:00
PROVIDERS: PCP Family Medicine; Visit Provider Family Medicine
DX: I10 Essential (primary) hypertension (principal); Z79.899 Other long term (current) drug therapy
CPT/HCPCS: 36415; 80048

== ENCOUNTER → 2022-01-17 | Outpatient (REF) | payer MEDICARE, SELFPAY ==
[2022-01-17 08:20] LABS: Anion Gap 6 (5-15); BUN 29 mg/dL (7-18); BUN/Creat Ratio 25.4 RATIO (10-20); Calcium,Total 8.2 mg/dL (8.5-10.1); Chloride 109 mmol/L (98-107); Creatinine, Serum 1.14 mg/dL (0.55-1.02); EST Glomerular Filtration Rate 50 mL/min (>60); Est Glom Filt Rate - Afr Amer 60 mL/min (>60); Glucose 86 mg/dL (74-106); Potassium 4.6 mmol/L (3.5-5.1); Sodium Level 143 mmol/L (136-145)
== END | disposition home or self-care (01) ==
LOC: OLS.WCC 05:00
PROVIDERS: PCP Family Medicine; Visit Provider Family Medicine
DX: I10 Essential (primary) hypertension (principal); Z79.899 Other long term (current) drug therapy
CPT/HCPCS: 36415; 80048

== ENCOUNTER → 2022-01-22 | Outpatient (REF) | payer MEDICARE, SELFPAY ==
[2022-01-22 09:37] LABS: Hematocrit 32.2 % (37-47); Hemoglobin 10.1 g/dL (12.0-15.0); Mean Corp Hgb Conc 31.4 g/dL (32-36); Mean Corpuscular Hgb 31.5 pg (27.0-32.0); Mean Corpuscular Volume 100.3 fL (81-99); Mean Platelet Vol. 14.1 fl (6.2-12.0); POSITIVE COUNT YES; Platelet Count 116 K/mm3 (150-450); RBC Distribution Width CV 12.2 % (11.6-14.6); RBC Distribution Width SD 44.5 fl (35.1-43.9); Red Blood Count 3.21 M/mm3 (4.2-5.4); White Blood Count 4.6 K/mm3 (4.4-11.0)
[2022-01-22 09:38] LABS: Scan Indicated on CBC? Y/N YES- FLAGS NOTED
[2022-01-22 09:49] LABS: Anion Gap 7 (5-15); BUN 27 mg/dL (7-18); BUN/Creat Ratio 23.9 RATIO (10-20); Chloride 109 mmol/L (98-107); Creatinine, Serum 1.13 mg/dL (0.55-1.02); EST Glomerular Filtration Rate 50 mL/min (>60); Est Glom Filt Rate - Afr Amer 61 mL/min (>60); Glucose 85 mg/dL (74-106); Potassium 4.3 mmol/L (3.5-5.1); Sodium Level 142 mmol/L (136-145); Thyroid Stim Hormone (TSH) 3.51 uIU/mL (0.358-3.74)
[2022-01-22 10:44] LABS: Differential Comment SCANNED
== END | disposition home or self-care (01) ==
LOC: OLS.WCC 05:00
PROVIDERS: PCP Family Medicine; Visit Provider Family Medicine
DX: I10 Essential (primary) hypertension (principal); E03.9 Hypothyroidism, unspecified; Z79.899 Other long term (current) drug therapy
CPT/HCPCS: 36415; 80048; 84443; 85027

== ENCOUNTER → 2022-02-01 | Outpatient (REF) | payer MEDICARE, SELFPAY ==
[2022-02-01 08:53] LABS: Anion Gap 5 (5-15); BUN 32 mg/dL (7-18); BUN/Creat Ratio 25.6 RATIO (10-20); Calcium,Total 8.1 mg/dL (8.5-10.1); Chloride 110 mmol/L (98-107); Creatinine, Serum 1.25 mg/dL (0.55-1.02); EST Glomerular Filtration Rate 45 mL/min (>60); Est Glom Filt Rate - Afr Amer 54 mL/min (>60); Glucose 94 mg/dL (74-106); Potassium 4.4 mmol/L (3.5-5.1); Sodium Level 142 mmol/L (136-145)
== END | disposition home or self-care (01) ==
LOC: OLS.WCC 05:00
PROVIDERS: PCP Family Medicine; Visit Provider Family Medicine
DX: I10 Essential (primary) hypertension (principal); Z79.899 Other long term (current) drug therapy
CPT/HCPCS: 36415; 80048

== ENCOUNTER → 2022-02-15 | Outpatient (REF) | payer MEDICARE, SELFPAY ==
[2022-02-15 10:07] LABS: Anion Gap 8 (5-15); BUN 28 mg/dL (7-18); BUN/Creat Ratio 21.7 RATIO (10-20); Chloride 108 mmol/L (98-107); Creatinine, Serum 1.29 mg/dL (0.55-1.02); EST Glomerular Filtration Rate 43 mL/min (>60); Est Glom Filt Rate - Afr Amer 52 mL/min (>60); Glucose 157 mg/dL (74-106); Potassium 4.3 mmol/L (3.5-5.1); Sodium Level 141 mmol/L (136-145)
== END | disposition home or self-care (01) ==
LOC: OLS.WCC 05:00
PROVIDERS: PCP Family Medicine; Visit Provider Family Medicine
DX: F03.90 Unspecified dementia, unspecified severity, without behavioral disturbance, psychotic disturbance, mood disturbance, and anxiety (principal); Z79.899 Other long term (current) drug therapy
CPT/HCPCS: 36415; 80048

== ENCOUNTER → 2022-02-28 | Outpatient (REF) | payer MEDICARE, SELFPAY ==
[2022-02-28 09:26] LABS: Anion Gap 6 (5-15); BUN 31 mg/dL (7-18); BUN/Creat Ratio 26.7 RATIO (10-20); Calcium,Total 8.1 mg/dL (8.5-10.1); Chloride 109 mmol/L (98-107); Creatinine, Serum 1.16 mg/dL (0.55-1.02); EST Glomerular Filtration Rate 49 mL/min (>60); Est Glom Filt Rate - Afr Amer 59 mL/min (>60); Glucose 98 mg/dL (74-106); Potassium 4.4 mmol/L (3.5-5.1); Sodium Level 140 mmol/L (136-145)
== END | disposition home or self-care (01) ==
LOC: OLS.WCC 04:48
PROVIDERS: PCP Family Medicine; Referring Provider Family Medicine; Visit Provider Family Medicine
DX: F03.90 Unspecified dementia, unspecified severity, without behavioral disturbance, psychotic disturbance, mood disturbance, and anxiety (principal); Z79.899 Other long term (current) drug therapy
CPT/HCPCS: 36415; 80048

== ENCOUNTER → 2022-03-13 | Outpatient (REF) | payer MEDICARE, SELFPAY ==
[2022-03-13 07:09] LABS: Anion Gap 6 (5-15); BUN 28 mg/dL (7-18); BUN/Creat Ratio 23.1 RATIO (10-20); Calcium,Total 8.8 mg/dL (8.5-10.1); Chloride 110 mmol/L (98-107); Creatinine, Serum 1.21 mg/dL (0.55-1.02); EST Glomerular Filtration Rate 46 mL/min (>60); Est Glom Filt Rate - Afr Amer 56 mL/min (>60); Glucose 99 mg/dL (74-106); Potassium 4.4 mmol/L (3.5-5.1); Sodium Level 142 mmol/L (136-145)
== END ==
LOC: OLS.WCC 05:00
PROVIDERS: PCP Family Medicine; Visit Provider Family Medicine
DX: F03.90 Unspecified dementia, unspecified severity, without behavioral disturbance, psychotic disturbance, mood disturbance, and anxiety (principal); Z79.899 Other long term (current) drug therapy
CPT/HCPCS: 36415; 80048

== ENCOUNTER → 2022-12-04 | Outpatient (CLI) | payer MEDICARE, SELFPAY ==
--- NOTE | 2022-12-04 15:02 | BI_ITS ---
MAMMOGRAPHY - BILATERAL SCREENING REASON FOR EXAM: Female, 76 years old. Routine annual screening examination. PERTINENT HISTORY: Non-contributory. Remote left stereotactic breast biopsy. TECHNIQUE: Digital bilateral breast irma (3D mammographic acquisition) in the CC and MLO projections. 2-D mediolateral oblique (MLO) and craniocaudad (CC) views of both breasts were obtained. CAD: Full Field Digital Mammography with Computer Added Detection was performed. COMPARISON: Comparison is made with prior study dated August 13, 2018 and July 16, 2017. FINDINGS: Breast Composition: The breasts are heterogeneously dense, which may obscure small masses. There are no dominant masses or suspicious calcifications. The patient marker is seen in the deep central slightly medial aspect of the left breast. Stable small nodular densities seen at the biopsy site. No other significant abnormalities are identified. There has been no significant change since the prior study. BI/SCRN MAMM (CAD)W/IRMA BILAT IMPRESSION: Stable bilateral screening mammogram. Yearly follow-up mammogram recommended. (A) ASSESSMENT CATEGORY: BIRADS Category 2: Benign. A letter regarding these results will be sent to the patient by the facility within 30 days. Approximately 10% of breast cancers are not detected by mammography. A normal mammogram should not delay biopsy of a clinically suspicious abnormality. [id number] Electronically Signed: Shyam Chung MD at 16:00 EDT ,
== END | disposition home or self-care (01) ==
LOC: OPBI 15:00
PROVIDERS: PCP Family Medicine; Visit Provider Family Medicine
DX: Z00.00 Encounter for general adult medical examination without abnormal findings (principal); Z12.31 Encounter for screening mammogram for malignant neoplasm of breast
CPT/HCPCS: 77063; 77067

== ENCOUNTER → 2023-06-04 | Outpatient (CLI) | payer MEDICARE, SELFPAY ==
--- NOTE | 2023-06-04 10:21 | BD_ITS ---
STUDY: DUAL ENERGY X-RAY ABSORPTIOMETRY / DXA REASON FOR EXAM: Female, 77 years old. M85.89 TECHNIQUE: Bone Mineral Density (BMD) measurements of lumbar spine and bilateral hips were obtained. COMPARISON: Comparison is made with prior study dated January 06, 2019. FINDINGS: Lumbar Spine (L1-L4): g/cm2 (0.982) / T-score (-0.6) / Z-score (1.8) Findings are suggestive of normal bone density with a low fracture risk. Left Femur Total: g/cm2 (0.743) / T-score (-1.6) / Z-score (0.2) Left Femoral Neck: g/cm2 (0.546) / T-score (-2.7) / Z-score (-0.6) Right Femur Total: g/cm2 (0.684) / T-score (-2.1) / Z-score (-0.3) Right Femoral Neck: g/cm2 (0.496) / T-score (-3.2) / Z-score (-1.1) The T-Scores on the most recent prior examination were: Lumbar Spine (L1-L4): There has been improvement of bone density since the previous examination. Left Femur Total: which represents an improvement of 13.2%. Right Femur Total: which represents an improvement of 10.2%. BD/Dexa Bone Density Study IMPRESSION: The patient is considered osteoporotic as outlined below according to World Homer Organization (WHO) criteria with a high fracture risk. There has been improvement of bone density since the previous examination. Reference Information: The T-score is the number of standard deviations above or below the standard which is normal for young adults at their peak bone mineral density. The World Health Organization (WHO) interprets the T-scores as follows: Above -1 Normal bone density Between -1 and -2.5 Osteopenia Equal to / or below -2.5 Osteoporosis As a practical clinical guideline, osteopenia may be graded as follows: Mild -1 through -1.5 Moderate -1.6 through -2.0 Severe -2.1 through -2.4 The Z-score is the number of standard deviations above or below age-matched controls. A Z-score of less than -1.5 would be considered abnormal. References: 1. NIH Osteoporosis and Related Bone Diseases www osteo.org 2. International Society for Clinical Densitometry www iscd.org 3. National Osteoporosis Foundation www nof.org Electronically Signed: Shyam Chung MD at 12:44 EDT ,
== END | disposition home or self-care (01) ==
LOC: OPBD 10:13
PROVIDERS: PCP Family Medicine; Referring Provider Family Medicine; Visit Provider Family Medicine
DX: M85.89 Other specified disorders of bone density and structure, multiple sites (principal)
CPT/HCPCS: 77080

== ENCOUNTER → 2024-07-08 | Outpatient (CLI) | payer MEDICARE, SELFPAY ==
--- NOTE | 2024-07-08 15:17 | ST.MBS ---
Modified Barium Swallow Patient Information Study Date: 07/08/24 Study Time: 13:00 Direct Billable Minutes: 125 Total Minutes procedure & reportin Diagnosis: Dysphagia (R13.10) Referring Physician: Kayden Berg Reason for Referral: Per patient report, she was referred to assess swallow function for potential diet upgrade from Minced & Moist Textures. 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 PER TRIAL): PENETRATION / ASPIRATION SCALE (LEGGETT): 1 = does not enter airway 2 = enters airway/above vocal folds/ejected 3 = enters airway/above vocal folds/not ejected 4 = enters airway/contacts vocal folds/ejected 5 = enters airway/contacts vocal folds/not ejected 6 = enters airway/below vocal folds/ejected 7 = enters airway/below vocal folds/not ejected despite effort 8 = enters airway/below vocal folds/no effort VIDEOFLOROSCOPIC SCALE SCORE (LEGGETT): Grade I = aspiration of material that has penetrated into the laryngeal vestibule, intact cough reflex Grade II = aspiration < 10 % of the bolus, intact cough reflex Grade III = aspiration of < 10 % of the bolus, reduced cough reflex or aspiration of > 10 % of the bolus, intact cough reflex Grade IV = aspiration of > 10 % of the bolus, reduced cough reflex Penetration-Aspiration Scale Score Thin Liquid via teaspoon: Result: 1= does not enter airway Thin Liquid via teaspoon Trial 2: Result: 2= enter airway/above vocal folds/ejected Thin Liquid via small single sip: cup: Result: 1= does not enter airway Thin Liquid via small single sip: cup Trial 2: Result: 1= does not enter airway Thin Liquid via sequential sips: cup: Result: 1= does not enter airway Thin Liquid via single sip: straw: Result: 1= does not enter airway Pudding: Result: 1= does not enter airway Cookie: Result: 1= does not enter airway Oral Phase Labial Seal: No Labial Escape Tongue Control During Bolus Hold: Cohesive bolus between tongue to palatal seal Bolus Preparation/Mastication: Timely and efficient chewing and mashing Bolus Transport/Lingual Motion: Brisk tongue motion Oral Residue: Trace residue lining oral structures Pharyngeal Phase Initiation of Pharyngeal Swallow: Bolus head in pyriforms Soft Palate Elevation: Trace column of contrast/air between soft palate and pharyngeal wall Laryngeal Elevation: Comp. Superior move thyroid cart w/comp. apprx arytenoid cart-epig pet Anterior Hyoid Excursion: Partial anterior movement Epiglottic Movement: Partial inversion Laryngeal Vestibule Closure at Height of Swallow: Complete; no air/contrast in laryngeal vestibule Pharyngeal Stripping Wave: Present - complete Pharyngoesophageal Segment Opening: Parital distension and partial duration; parital obstruction of flow Tongue Base Retraction: Narrow column of contrast between tongue base & post. pharyngeal wall Pharyngeal Residue: Trace residue within or on pharyngeal structures Esophageal Phase Esophageal Clearance: Complete clearance Diagnosis/Impression Diagnosis: Functional Oropharyngeal Swallow Impression: The oral phase is marked by? -adequate oral containment -sufficient mastication -timely A-P bolus transportation ? The pharyngeal phase is marked by? -delayed pharyngeal swallow onset timing w/ the leading edge of thin liquid boluses reaching the pyriform sinuses before swallow onset w/ contrast undercoating the posterior laryngeal surface of the epiglottic, transiently penetrating the laryngeal vestibule 1x w/ thin liquid via teaspoon w/ complete ejection -mildly reduced hyolaryngeal excursion w/ incomplete epiglottic inversion resulting in contrast retention lining the tongue base and lingual surface of the epiglottis -irregularly appearing bubbles vs. soft tissue noted w/in the pharynx/esophagus w/ thin liquid trials across multiple trials ? The esophageal phase is characterized by? -reduced PES distention/duration w/out impact on bolus clearance -protrusion consistent w/ that of a CP bar was noted along the posterior esophageal wall at ~ C5 -esophageal webbing appearance noted on the anterior esophageal wall, opposite the CP bar -trace contrast retention w/in the pyriforms -recommend further assessment of pharynx/larynx -esophageal clearance was WNL Recommendations Diet: Regular Textures and Thin Liquids Compensatory Strategies: Small Bites (cut solids into bite sized pieces, chew thoroughly), Alternate bites/solids and sips/liquids, Sitting upright, Remain sitting upright for 30 minutes after PO intake and Minimize/decrease distractions Recommend Repeat Modified Barium Swallow: No Need for Skilled Speech Therapy Services: No Recommended Referrals: ENT Consult (see images and impression above for details) Education Completed: 1. Described result of evaluation. and 4. Family/caregivers understand evaluation & agree w/ goals & tx plan. Status Active ST Patient: Active Contact Information [facility] Speech Therapy:: Lucero Calles M.A., [place] [employer] Speech-Language Pathologist [facility] [address] [place] [address] [email or web address] [phone]
== END | disposition home or self-care (01) ==
PROVIDERS: PCP Family Medicine; Referring Provider Family Medicine; Visit Provider Family Medicine
DX: R13.10 Dysphagia, unspecified (principal)
CPT/HCPCS: 74230; 92611

== ENCOUNTER → 2025-05-24 | Outpatient (CLI) | payer MEDICARE, SELFPAY ==
[2025-05-24 19:02] LABS: AST(SGOT) 26 U/L (<=31); Alanine Aminotransfer ALT/SGPT 27 U/L (<=34); Albumin, Serum 4.2 g/dL (3.4-4.8); Alkaline Phosphatase 61 U/L (35-104); Anion Gap 12 (5-15); BUN 35 mg/dL (4-19); BUN/Creat Ratio 23.5 RATIO (10-20); Calcium,Total 9.2 mg/dL (7.6-11.0); Carbon Dioxide 21.7 mmol/L (21.0-32.0); Chloride 107 mmol/L (98-108); Cholesterol 229 mg/dL (<=200); Globulin 2.9 g/dL (2.2-4.2); Glucose 89 mg/dL (70-99); Low Density Lipoprotein Calc. 146 mg/dL; Potassium 4.5 mmol/L (3.3-5.1); Triglycerides 150 mg/dL; Very Low Density Lipoprotein 30 mg/dL (5-40); cholesterol:hdl ratio screen 4.35
--- OUTSIDE RECORDS SUMMARY | 2025-05-24 21:43 | XMS RPT_ITS | CCD ---
Author Organization [facility] Inform ion Partnership [facility] Care Team Providers Care Body Presser Name Role Phone Dr. Galdino Solares Emergency Provider Dr. Alejandro Jordan Primary Care Provider [phone] Dr. Devon Vivas Admit Provider [phone] Devon Vivas Attending Provider [phone] Devon Vivas Other Provider Kayden Berg Referring Unavailable Kayden Berg Attending Unavailable Kayden Berg Primary Care Unavailable Allergies Allergy Classification Reported Allergen(s) Allergy Type Date of Onset Reaction(s) Facility (16 sources) Azithromycin Drug Allergy 1 Vomiting [facility] (16 sources) Erythromycin Drug Allergy 1 Vomiting [facility] (17 sources) Grass pollen; Translations: [grass pollen] Allergy to substance 1 Unknown [facility] (17 sources) natural latex rubber; Translations: [Latex, Natural Rubber] Propensity to adverse reactions 1 Rash [facility] (17 sources) cigarette smoke; Translations: [cigarette smoke] Allergy to substance 1 Unknown [facility] (1 source) Azithromycin Drug Allergy 1 [facility] (1 source) Erythromycin Drug Allergy 1 [facility] Medications Current Medications Medication Drug Class(es) Dates Sig (Normalized) Sig (Original) bisacodyl 5 mg delayed release oral tablet (16 sources) Stimulant Laxative Start: 06-14-2021 take 1 tablet by mouth once daily as needed Bisacodyl (Bisa-Lax (Bisacodyl)) 5 mg tablet,delayed release (DR/EC) Active 5 MG PO DAILY NEEDED June 14, 2021 12:00am docusate sodium 50 mg / sennosides, penitentiary 8.6 mg oral capsule (16 sources) Start: 10-16-2021 take 1 tablet by mouth twice daily Sennosides-Docusa te Sodium (Senna Plus) 8.6-50 mg Capsule Active 1 TABLET PO TWICE A DAY October 16, 2021 1:00am famotidine 20 mg oral tablet (16 sources) Histamine-2 Receptor Antagonist Start: 06-14-2021 Famotidine Active 20 MG PO TWICE A DAY June 14, 2021 12:00am for 2 weeks, starting 10/12-10/26, then resume daily ferrous sulfate 325 mg oral tablet (20 sources) Start: 10-16-2021 Ferrous Sulfate (Ferosul) 325 mg (65 mg iron) Tablet Active 325 MG PO MOWEFR October 16, 2021 1:00am Start: 02-15-2021 End: 06-14-2021 take 1 tablet by mouth once daily Ferrous Sulfate (Slow Fe) 142 mg (45 mg iron) tablet extended release Discontinued 142 MG PO DAILY February 15, 2021 12:00am June 14, 2021 12:58pm ibandronic acid 150 mg oral tablet (16 sources) Bisphosphonate Start: 05-01-2019 take 150 mg by mouth every month Ibandronate Active 150 MG PO EVERY MONTH May 01, 2019 12:00am loratadine 10 mg oral tablet (16 sources) Start: 05-01-2019 take 10 mg by mouth once daily Loratadine Active 10 MG PO DAILY May 01, 2019 12:00am Mv,Ca,Min-Folic Acid-Vit K1 (One-A-Day Women's 50 Plus) 400-20 mcg tablet (16 sources) Start: 05-22-2019 take 50-400 tablets by mouth once daily Mv,Ca,Min-Folic Acid-Vit K1 (One-A-Day Women's 50 Plus) 400-20 mcg tablet Active 1 TABLET PO DAILY May 22, 2019 11:59am Start: 05-22-2019 take 50-400 tablets by mouth once daily Mv,Ca,Min-Folic Acid-Vit K1 (One-A-Day Women's 50 Plus) 400-20 mcg tablet Active 1 TABLET PO DAILY May 22, 2019 12:00am propylene glycol 6 mg/ml ophthalmic solution (20 sources) Start: 10-16-2021 take 0.6 drop(s) into the eye(s) once daily as needed Propylene Glycol (Systane Balance) 0.6 % Drops Active 2 DRP EACH EYE DAILY NEEDED October 16, 2021 1:00am Start: 05-22-2019 End: 05-26-2019 take 0.6 drop(s) into the eye(s) once daily Propylene Glycol (Systane Balance) 0.6 % drops Discontinued 1 DRP OPHTHALMIC DAILY May 22, 2019 12:00am May 26, 2019 11:12am rOPINIRole 0.5 mg oral tablet (16 sources) Nonergot Dopamine Agonist Start: 12-02-2016 take 0.5 mg by mouth at bedtime Ropinirole Active 0.5 MG PO AT BEDTIME December 02, 2016 12:00am Completed/Discontinued Medications Medication Drug Class(es) Dates Sig (Normalized) Sig (Original) Ca Carb-D3-Mag Yj-Src-Yoqi-Zn (16 sources) Start: 12-02-2016 End: 05-22-2019 Ca Carb-D3-Mag Iq-Cdv-Xmol-Zn Discontinued 2 EACH PO DAILY December 02, 2016 1:46pm May 22, 2019 1:23pm Start: 12-02-2016 End: 05-22-2019 Ca Carb-D3-Mag Ms-Kej-Tyxx-Z n Discontinued 2 EACH PO DAILY December 02, 2016 12:00am May 22, 2019 1:23pm cephalexin 500 mg oral capsule (16 sources) Cephalosporin Antibacterial Start: 03-06-2021 End: 06-14-2021 take 500 mg by mouth every twelve hours Cephalexin Discontinued 500 MG PO EVERY 12 HOURS March 06, 2021 12:00am June 14, 2021 12:56pm furosemide 20 mg oral tablet (16 sources) Loop Diuretic Start: 01-05-2020 End: 06-16-2020 take 20 mg by mouth once daily Furosemide Discontinued 20 MG PO DAILY January 05, 2020 12:00am June 16, 2020 1:23pm hydroCHLOROthiazide 12.5 mg oral capsule (20 sources) Thiazide Diuretic Start: 10-16-2021 End: 10-17-2021 take 12.5 mg by mouth once daily Hydrochlorothiazide Discontinued 12.5 MG PO DAILY October 16, 2021 1:00am October 17, 2021 11:24am Start: 08-17-2020 End: 01-27-2021 take 12.5 mg by mouth once daily in the morning Hydrochlorothiazide Discontinued 12.5 MG PO EVERY MORNING August 17, 2020 1:00am January 27, 2021 11:18am Start: 11-30-2019 End: 01-05-2020 take 12.5 mg by mouth once daily Hydrochlorothiazide Discontinued 12.5 MG PO DAILY November 30, 2019 12:00am January 05, 2020 3:05pm On Hold: hypotension imiquimod 50 mg/ml topical cream (16 sources) Start: 07-08-2019 End: 08-19-2019 Imiquimod Discontinued 1 APPLIC TOPICAL 5 times per week 30 July 08, 2019 12:00am August 19, 2019 1:07am apply to affected areas daily at night 5 days per week for 6 weeks 30 packets. lisinopril 40 mg oral tablet (20 sources) Angiotensin Converting Enzyme Inhibitor Start: 05-26-2019 End: 04-08-2020 take 40 mg by mouth once daily Lisinopril Discontinued 40 MG PO DAILY November 30, 2019 11:06am April 08, 2020 4:07pm Start: 05-26-2019 End: 05-26-2019 take 20 mg by mouth once daily Lisinopril Discontinued 20 MG PO DAILY May 26, 2019 12:00am May 26, 2019 11:43am Start: 05-01-2019 End: 05-26-2019 take 10 mg by mouth once daily Lisinopril Discontinued 10 MG PO DAILY May 01, 2019 12:00am May 26, 2019 11:10am Multivitamin-Ferrous Sulfate (16 sources) Start: 12-02-2016 End: 05-22-2019 take 18 mg by mouth once daily Multivitamin-Ferrous Sulfate Discontinued 18 MG PO DAILY December 02, 2016 1:46pm May 22, 2019 1:22pm Start: 12-02-2016 End: 05-22-2019 take 18 mg by mouth once daily Multivitamin-Ferrous Sulfate Discontinue d 18 MG PO DAILY December 02, 2016 12:00am May 22, 2019 1:22pm nortriptyline 25 mg oral capsule (16 sources) Tricyclic Antidepressant Start: 06-08-2019 End: 07-09-2019 take 25 mg by mouth at bedtime Nortriptyline Discontinued 25 MG PO AT BEDTIME June 08, 2019 12:00am July 09, 2019 8:56am omeprazole 20 mg delayed release oral capsule (16 sources) Proton Pump Inhibitor Start: 05-22-2019 End: 06-08-2019 Omeprazole Discontinued PO 30 May 22, 2019 12:00am June 08, 2019 3:13pm oxybutynin chloride 5 mg oral tablet (16 sources) Cholinergic Muscarinic Antagonist Start: 05-01-2019 End: 06-08-2019 take 5 mg by mouth twice daily Oxybutynin Chloride Discontinued 5 MG PO TWICE A DAY May 01, 2019 12:00am June 08, 2019 3:13pm psyllium 520 mg oral capsule (16 sources) Start: 05-22-2019 End: 05-26-2019 Psyllium Husk (Daily Fiber) 0.52 gram capsule Discontinued 0.52 GM PO DAILY May 22, 2019 12:00am May 26, 2019 11:12am urea 0.45 mg/mg topical gel (16 sources) Start: 05-22-2019 End: 07-09-2019 Urea Discontinued 1 APPLIC TOPICAL TWICE A DAY May 22, 2019 12:00am July 09, 2019 8:56am Problems Problem Classification Problem Date Documented Da te Episodic/Chronic Anxiety disorders (16 sources) Mixed anxiety and depressive disorder; Translations: [Anxiety disorder, unspecified] 07-09-2019 Chronic Blindness and vision defects (16 sources) Disorder of vision; Translations: [Unspecified visual loss] 11-24-2020 Chronic Calculus of urinary tract (16 sources) Kidney stone; Translations: [Calculus of kidney] 11-24-2020 Episodic Cataract (16 sources) Bilateral cataracts; Translations: [Unspecified cataract] 07-09-2019 Chronic Chronic kidney disease (16 sources) Chronic kidney disease; Translations: [Chronic kidney disease, unspecified] 03-06-2021 Chronic Deficiency and other anemia (16 sources) Anemia; Translations: [Anemia, unspecified] 07-09-2019 Episodic Disorders of lipid metabolism (16 sources) Hypercholesterolemia; Translations: [Pure hypercholesterolemia, unspecified] 07-09-2019 Chronic E Codes: Fall (20 sources) Fall; Translations: [Unspecified fall, initial encounter] Episodic Esophageal disorders (16 sources) Gastroesophageal reflux disease; Translations: [Gastro-esophageal reflux disease without esophagitis] 07-09-2019 Chronic Essential hypertension (20 sources) Hypertensive disorder; Translations: [Essential (primary) hypertension] 06-16-2020 Chronic Fluid and electrolyte disorders (20 sources) Hyponatremia; Translations: [Hypo-osmolality and hyponatremia] Episodic Genitourinary symptoms and ill-defined conditions (16 sources) Incontinence; Translations: [Unspecified urinary incontinence] 07-09-2019 Chronic Hemorrhoids (16 sources) Hemorrhoids; Translations: [Unspecified hemorrhoids] 07-09-2019 Episodic Hypertension with complications and secondary hypertension (16 sources) Hypertensive urgency ; Translations: [Hypertensive urgency] 11-24-2020 Chronic Malaise and fatigue (20 sources) Fatigue; Translations: [Other fatigue] 07-09-2019 Episodic Nutritional deficiencies (16 sources) Vitamin deficiency; Translations: [Vitamin deficiency, unspecified] 07-09-2019 Episodic Osteoarthritis (16 sources) Arthritis; Translations: [Unspecified osteoarthritis, unspecified site] 07-09-2019 Chronic Other and unspecified benign neoplasm (20 sources) Lipoma (clinical); Translations: [Benign lipomatous neoplasm, unspecified] 11-24-2020 Episodic Other bone disease and musculoskeletal deformities (16 sources) Osteopenia; Translations: [Other specified disorders of bone density and structure, unspecified site] 11-24-2020 Episodic Other circulatory disease (16 sources) Sensation of foreign body in throat; Translations: [Other specified symptoms and signs involving the circulatory and respiratory systems] 05-02-2019 Episodic Other connective tissue disease (16 sources) Difficulty balancing; Translations: [Other symptoms and signs involving the nervous system] 07-09-2019 Episodic Other connective tissue disease (16 sources) Muscle weakness of limb; Translations: [Other symptoms and signs involving the musculoskeletal system] 07-09-2019 Episodic Other ear and sense organ disorders (16 sources) Hearing disorder; Translations: [Unspecified hearing loss, unspecified ear] 07-09-2019 Chronic Other endocrine disorders (16 sources) Hypoglycemia; Translations: [Hypoglycemia, unspecified] 11-24-2020 Chronic Other gastrointestinal disorders (16 sources) Constipation; Translations: [Constipation, unspecified] 02-22-2021 Episodic Other gastrointestinal disorders (1 source) Dysphagia, unspecified; Translations: [Dysphagia, unspecified] Onset: Episodic Other hereditary and degenerative nervous system conditions (16 sources) Restless legs; Translations: [Restless legs syndrome] 07-09-2019 Chronic Other injuries and conditions due to external causes (16 sources) Closed injury of head; Translations: [Unspecified injury of head, initial encounter] 10-25-2021 Episodic Other injuries and conditions due to external causes (6 sources) Unspecified injury of head, initial encounter; Translations: [Head injury, unspecified] Episodic Other lower respiratory disease (16 sources) Dyspnea; Translations: [Shortness of breath] 07-09-2019 Episodic Other non-traumatic joint disorders (16 sources) Shoulder pain; Translations: [Pain in unspecified shoulder] 07-09-2019 Episodic Other non-traumatic joint disorders (16 sources) Pain in unspecified knee; Translations: [Knee pain] 07-09-2019 Episodic Other skin disorders (16 sources) Mass of neck; Translations: [Localized swelling, mass and lump, neck] 09-25-2019 Episodic Other skin disorders (16 sources) Actinic keratosis; Translations: [Actinic keratosis] 07-10-2019 Episodic Other skin disorders (16 sources) Keratosis; Translations: [Actinic keratosis] 08-18-2020 Episodic Other upper respiratory disease (16 sources) Seasonal allergy; Translations: [Other seasonal allergic rhinitis] 07-09-2019 Chronic Residual codes; unclassified (16 sources) Mixed sleep apnea; 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] 10-13-2019 Chronic Residual codes; unclassified (16 sources) Sleep apnea; Translations: [Sleep apnea, unspecified] 11-24-2020 Chronic Residual codes; unclassified (16 sources) Obstructive sleep apnea syndrome; Translations: [Obstructive sleep apnea (adult) (pediatric)] 07-09-2019 Chronic Residual codes; unclassified (16 sources) Past history of procedure; Translations: [Other specified postprocedural states] 07-09-2019 Episodic Spondylosis; intervertebral disc disorders; other back problems (16 sources) Backache; Translations: [Dorsalgia, unspecified] 07-09-2019 Episodic Superficial injury; contusion (16 sources) Foreign body - finger; Translations: [Superficial foreign body of right ring finger, initial encounter] 05-22-2019 Episodic Urinary tract infections (16 sources) Acute urinary tract infection; Translations: [Urinary tract infection, site not specified] 03-06-2021 Episodic Results Test Name Value Interpretation Reference Range Facil ity Modified Barium Swallow Stud yon 07-08-2024 Modified Barium Swallow Study [facility] Speech Pathology [address] [place] [address] Modified Barium Swallow Study MR#: [id number] Acct: [id number] Name: LIA GTZ Rep #: [id number] : 1945 78 From: Lucero Calles M.A. [facility] SUPERVISOR Modified Barium Swallow Patient Information Study Date: 07/08/24 Study Time: 13:00 Direct Billable Minutes: 125 Total Minutes procedure reportin Diagnosis: Dysphagia (R13.10) Referring Physician: Kayden Berg Reason for Referral: Per patient report, she was referred to assess swallow function for potential diet upgrade from Minced [employer]. 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 PER TRIAL): PENETRATION / ASPIRATION SCALE (LEGGETT): 1 = does not enter airway 2 = enters airway/above vocal folds/ejected 3 = enters airway/above vocal folds/not ejected 4 = enters airway/contacts vocal folds/ejected 5 = enters airway/contacts vocal folds/not ejected 6 = enters airway/below vocal folds/ejected 7 = enters airway/below vocal folds/not ejected despite effort 8 = enters airway/below vocal folds/no effort VIDEOFLOROSCOPIC SCALE SCORE (LEGGETT): Grade I = aspiration of material that has penetrated into the laryngeal vestibule, intact cough reflex Grade II = aspiration < 10 % of the bolus, intact cough reflex Grade III = aspiration of < 10 % of the bolus, reduced cough reflex or aspiration of > 10 % of the bolus, intact cough reflex Grade IV = aspiration of > 10 % of the bolus, reduced cough reflex Penetration-Aspirati on Scale Score Thin Liquid via teaspoon: Result: 1= does not enter airway Thin Liquid via teaspoon Trial 2: Result: 2= enter airway/above vocal folds/ejected Thin Liquid via small single sip: cup: Result: 1= does not enter airway Thin Liquid via small single sip: cup Trial 2: Result: 1= does not enter airway Thin Liquid via sequential sips: cup: Result: 1= does not enter airway Thin Liquid via single sip: straw: Result: 1= does not enter airway Pudding: Result: 1= does not enter airway Cookie: Result: 1= does not enter airway Oral Phase Labial Seal: No Labial Escape Tongue Control During Bolus Hold: Cohesive bolus between tongue to palatal seal Bolus Preparation/Masticat ion: Timely and efficient chewing and mashing Bolus Transport/Lingual Motion: Brisk tongue motion Oral Residue: Trace residue lining oral structures Pharyngeal Phase Initiation of Pharyngeal Swallow: Bolus head in pyriforms Soft Palate Elevation: Trace column of contrast/air between soft palate and pharyngeal wall Laryngeal Elevation: Comp. Superior move thyroid cart w/comp. apprx arytenoid cart-epig pet Anterior Hyoid Excursion: Partial anterior movement Epiglottic Movement: Partial inversion Laryngeal Vestibule Closure at Height of Swallow: Complete; no air/contrast in laryngeal vestibule Pharyngeal Stripping Wave: Present - complete Pharyngoesophageal Segment Opening: Parital distension and partial duration; parital obstruction of flow Tongue Base Retraction: Narrow column of contrast between tongue base post. pharyngeal wall Pharyngeal Residue: Trace residue within or on pharyngeal structures Esophageal Phase Esophageal Clearance: Complete clearance Diagnosis/Impression Diagnosis: Functional Oropharyngeal Swallow Impression: The oral phase is marked by??? -adequate oral containment -sufficient mastication -timely A-P bolus transportation ??? The pharyngeal phase is marked by??? -delayed pharyngeal swallow onset timing w/ the leading edge of thin liquid boluses reaching the pyriform sinuses before swallow onset w/ contrast undercoating the posterior laryngeal surface of the epiglottic, transiently penetrating the laryngeal vestibule 1x w/ thin liquid via teaspoon w/ complete ejection -mildly reduced hyolaryngeal excursion w/ incomplete epiglottic inversion resulting in contrast retention lining the tongue base and lingual surface of the epiglottis -irregularly appearing bubbles vs. soft tissue noted w/in the pharynx/esophagus w/ thin liquid trials across multiple trials ??? The esophageal phase is characterized by??? -reduced PES distention/duration w/out impact on bolus clearance -protrusion consistent w/ that of a CP bar was noted along the pos (more content not included)... Normal [facility] Basophil percentageon 2021 Chloride [Moles/Vol] 110 mmol/L 98-107 [facility] Work Phone: Glucose [Mass/Vol] 99 mg/dL 74-106 [facility] Work Phone: Potassium [Moles/Vol] 4.4 mmol/L 3.5-5.1 [facility] Work Phone: Sodium [Moles/Vol] 142 mmol/L 136-145 [facility] Work Phone: Laboratory - Chemistry and C hemistry - challengeon 03-13-2022 CO2 [Moles/Vol] 26.0 mmol/L 21.0-32.0 [facility] Work Phone: Urea nitrogen/Creatinine [Mass ratio] 23.1 mg/mg 10-20 [facility] Work Phone: No Panel Informationon 03-13 Estimated GFR (MDRD) Amer 56 mL/min >60 [facility] Work Phone: Comment on above: GFR Calc Estimated GFR (MDRD) Non-Af Amer 46 mL/min >60 [facility] Work Phone: Comment on above: Non- GFR Calc Serum or plasma calcium maranda urement (mass/volume)on 03-13-2022 Calcium [Mass/Vol] 8.8 mg/dL 8.5-10.1 [facility] Work Phone: Serum or plasma creatinine m easurement (mass/volume)on 03-13-2022 Creatinine [Mass/Vol] 1.21 mg/dL 0.55-1.02 [facility] Work Phone: Comment on above: The validity of the calculated GFR & GFRAA in patients over 70 years has not been determined. Clinical correlation is essential. Serum or plasma urea nitroge n measurement (mass/volume)on 03-13-2022 Urea nitrogen [Mass/Vol] 28 mg/dL 7-18 [facility] Work Phone: Thin prep Papanicolaou smear with manual screeningon 03-13-2022 Thin prep Papanicolaou smear with manual screening 6 5-15 [facility] Work Phone: Basophil percentageon 2021 Chloride [Moles/Vol] 109 mmol/L 98-107 [facility] Work Phone: Glucose [Mass/Vol] 98 mg/dL 74-106 [facility] Work Phone: Potassium [Moles/Vol] 4.4 mmol/L 3.5-5.1 [facility] Work Phone: Sodium [Moles/Vol] 140 mmol/L 136-145 [facility] Work Phone: Laboratory - Chemistry and C hemistry - challengeon 02-28-2022 CO2 [Moles/Vol] 25.0 mmol/L 21.0-32.0 [facility] Work Phone: Urea nitrogen/Creatinine [Mass ratio] 26.7 mg/mg 10-20 [facility] Work Phone: No Panel Informationon 02-28 Estimated GFR (MDRD) Amer 59 mL/min >60 [facility] Work Phone: Comment on above: GFR Calc Estimated GFR (MDRD) Non-Af Amer 49 mL/min >60 [facility] Work Phone: Comment on above: Non- GFR Calc Serum or plasma calcium maranda urement (mass/volume)on 02-28-2022 Calcium [Mass/Vol] 8.1 mg/dL 8.5-10.1 [facility] Work Phone: Serum or plasma creatinine m easurement (mass/volume)on 02-28-2022 Creatinine [Mass/Vol] 1.16 mg/dL 0.55-1.02 [facility] Work Phone: Comment on above: The validity of the calculated GFR & GFRAA in patients over 70 years has not been determined. Clinical correlation is essential. Serum or plasma urea nitroge n measurement (mass/volume)on 02-28-2022 Urea nitrogen [Mass/Vol] 31 mg/dL 7-18 [facility] Work Phone: Thin prep Papanicolaou smear with manual screeningon 02-28-2022 Thin prep Papanicolaou smear with manual screening 6 5-15 [facility] Work Phone: Basophil percentageon 2021 Chloride [Moles/Vol] 108 mmol/L 98-107 [facility] Work Phone: Glucose [Mass/Vol] 157 mg/dL 74-106 [facility] Work Phone: Comment on above: Fasting Glucose resu lt greater than or equal to 126 mg/dL suggests DIABETES MELLITUS per A.D.A. criteria. Potassium [Moles/Vol] 4.3 mmol/L 3.5-5.1 [facility] Work Phone: Sodium [Moles/Vol] 141 mmol/L 136-145 [facility] Work Phone: Laboratory - Chemistry and C hemistry - challengeon 02-15-2022 CO2 [Moles/Vol] 25.0 mmol/L 21.0-32.0 [facility] Work Phone: Urea nitrogen/Creatinine [Mass ratio] 21.7 mg/mg 10-20 [facility] Work Phone: No Panel Informationon 02-15 Estimated GFR (MDRD) Amer 52 mL/min >60 [facility] Work Phone: Comment on above: GFR Calc Estimated GFR (MDRD) Non-Af Amer 43 mL/min >60 [facility] Work Phone: Comment on above: Non- GFR Calc Serum or plasma calcium maranda urement (mass/volume)on 02-15-2022 Calcium [Mass/Vol] 9.0 mg/dL 8.5-10.1 [facility] Work Phone: Serum or plasma creatinine m easurement (mass/volume)on 02-15-2022 Creatinine [Mass/Vol] 1.29 mg/dL 0.55-1.02 [facility] Work Phone: Comment on above: The validity of the calculated GFR & GFRAA in patients over 70 years has not been determined. Clinical correlation is essential. Serum or plasma urea nitroge n measurement (mass/volume)on 02-15-2022 Urea nitrogen [Mass/Vol] 28 mg/dL 7-18 [facility] Work Phone: Thin prep Papanicolaou smear with manual screeningon 02-15-2022 Thin prep Papanicolaou smear with manual screening 8 5-15 [facility] Work Phone: Basophil percentageon 2021 Chloride [Moles/Vol] 110 mmol/L 98-107 [facility] Work Phone: Glucose [Mass/Vol] 94 mg/dL 74-106 [facility] Work Phone: Potassium [Moles/Vol] 4.4 mmol/L 3.5-5.1 [facility] Work Phone: Sodium [Moles/Vol] 142 mmol/L 136-145 [facility] Work Phone: Laboratory - Chemistry and C hemistry - challengeon 02-01-2022 CO2 [Moles/Vol] 27.0 mmol/L 21.0-32.0 [facility] Work Phone: Urea nitrogen/Creatinine [Mass ratio] 25.6 mg/mg 10-20 [facility] Work Phone: No Panel Informationon 02-01 Estimated GFR (MDRD) Amer 54 mL/min >60 [facility] [facility] Work Phone: Comment on above: GFR Calc Estimated GFR (MDRD) Non-Af Amer 45 mL/min >60 [facility] Work Phone: Comment on above: Non- GFR Calc Serum or plasma calcium maranda urement (mass/volume)on 02-01-2022 Calcium [Mass/Vol] 8.1 mg/dL 8.5-10.1 [facility] Work Phone: Serum or plasma creatinine m easurement (mass/volume)on 02-01-2022 Creatinine [Mass/Vol] 1.25 mg/dL 0.55-1.02 [facility] Work Phone: Comment on above: The validity of the calculated GFR & GFRAA in patients over 70 years has not been determined. Clinical correlation is essential. Serum or plasma urea nitroge n measurement (mass/volume)on 02-01-2022 Urea nitrogen [Mass/Vol] 32 mg/dL 7-18 [facility] Work Phone: Thin prep Papanicolaou smear with manual screeningon 02-01-2022 Thin prep Papanicolaou smear with manual screening 5 5-15 [facility] Work Phone: Basophil percentageon 2021 Chloride [Moles/Vol] 109 mmol/L 98-107 [facility] Work Phone: Glucose [Mass/Vol] 85 mg/dL 74-106 [facility] Work Phone: Potassium [Moles/Vol] 4.3 mmol/L 3.5-5.1 [facility] Work Phone: Sodium [Moles/Vol] 142 mmol/L 136-145 [facility] Work Phone: WBC (Bld) [#/Vol] 4.6 10*3/uL 4.4-11.0 [facility] Work Phone: Blood erythrocytes count (nu mber/volume)on 01-22-2022 RBC (Bld) [#/Vol] 3.21 10*6/uL 4.2-5.4 [facility] Work Phone: Blood hemoglobin measurement (mass/volume)on 01-22-2022 Hemoglobin (Bld) [Mass/Vol] 10.1 g/dL 12.0-15.0 [facility] Work Phone: Blood manual differential co mment interpretation (narrative result)on 01-22-2022 Manual differential comment Shantanu (Bld) [Interp] SCANNED [facility] Work Phone: Blood platelet mean volumeon 01-22-2022 Platelet mean volume (Bld) [Entitic vol] 14.1 fL 6.2-12.0 [facility] Work Phone: Determination of erythrocyte mean corpuscular volume (MCV)on 01-22-2022 MCV (RBC) [Entitic vol] 100.3 fL 81-99 [facility] Work Phone: Hematocrit Auto (Bld) [Volum e fraction]on 01-22-2022 Hematocrit (Bld) [Volume fraction] 32.2 % 37-47 [facility] Work Phone: Laboratory - Chemistry and C hemistry - challengeon 01-22-2022 CO2 [Moles/Vol] 26.0 mmol/L 21.0-32.0 [facility] Work Phone: Urea nitrogen/Creatinine [Mass ratio] 23.9 mg/mg 10-20 [facility] Work Phone: Laboratory - Hematology and Cell countson 01-22-2022 Erythrocyte distribution width (RBC) [Entitic vol] 44.5 fL 35.1-43.9 [facility] Work Phone: Erythrocyte distribution width (RBC) [Ratio] 12.2 % 11.6-14.6 [facility] Work Phone: MCH (RBC) [Entitic mass] 31.5 pg 27.0-32.0 [facility] Work Phone: MCHC Auto (RBC) [Mass/Vol]on 01-22-2022 MCHC (RBC) [Mass/Vol] 31.4 g/dL 32-36 [facility]: No Panel Informationon 01-22 Estimated GFR (MDRD) Amer 61 mL/min >60 [facility] Work Phone: Comment on above: GFR Calc Estimated GFR (MDRD) Non-Af Amer 50 mL/min >60 [facility] Work Phone: Comment on above: Non- GFR Calc Thyroid Stimulating Hormone (TSH) 3.51 uIU/mL 0.358-3.74 [facility] Work Phone: Platelets bldon 01-22-2022 Platelets (Bld) [#/Vol] 116 10*3/uL 150-450 [facility] Work Phone: Serum or plasma calcium maranda urement (mass/volume)on 01-22-2022 Calcium [Mass/Vol] 8.0 mg/dL 8.5-10.1 [facility] Work Phone: Serum or plasma creatinine m easurement (mass/volume)on 01-22-2022 Creatinine [Mass/Vol] 1.13 mg/dL 0.55-1.02 [facility] Work Phone: Comment on above: The validity of the calculated GFR & GFRAA in patients over 70 years has not been determined. Clinical correlation is essential. Serum or plasma urea nitroge n measurement (mass/volume)on 01-22-2022 Urea nitrogen [Mass/Vol] 27 mg/dL 7-18 [facility] Work Phone: Thin prep Papanicolaou smear with manual screeningon 01-22-2022 Thin prep Papanicolaou smear with manual screening 7 5-15 [facility] Work Phone: Basophil percentageon 2021 Chloride [Moles/Vol] 109 mmol/L 98-107 [facility] Work Phone: Glucose [Mass/Vol] 86 mg/dL 74-106 [facility] Work Phone: Potassium [Moles/Vol] 4.6 mmol/L 3.5-5.1 [facility] Work Phone: Sodium [Moles/Vol] 143 mmol/L 136-145 [facility] Work Phone: Laboratory - Chemistry and C hemistry - challengeon 01-17-2022 CO2 [Moles/Vol] 28.0 mmol/L 21.0-32.0 [facility] Work Phone: Urea nitrogen/Creatinine [Mass ratio] 25.4 mg/mg 10-20 [facility] Work Phone: No Panel Informationon 01-17 Estimated GFR (MDRD) Amer 60 mL/min >60 [facility] Work Phone: Comment on above: GFR Calc Estimated GFR (MDRD) Non-Af Amer 50 mL/min >60 [facility] Work Phone: Comment on above: Non- GFR Calc Serum or plasma calcium maranda urement (mass/volume)on 01-17-2022 Calcium [Mass/Vol] 8.2 mg/dL 8.5-10.1 [facility] Work Phone: Serum or plasma creatinine m easurement (mass/volume)on 01-17-2022 Creatinine [Mass/Vol] 1.14 mg/dL 0.55-1.02 [facility] Work Phone: Comment on above: The validity of the calculated GFR & GFRAA in patients over 70 years has not been determined. Clinical correlation is essential. Serum or plasma urea nitroge n measurement (mass/volume)on 01-17-2022 Urea nitrogen [Mass/Vol] 29 mg/dL 7-18 [facility] Work Phone: Thin prep Papanicolaou smear with manual screeningon 01-17-2022 Thin prep Papanicolaou smear with manual screening 6 5-15 [facility] Work Phone: Basophil percentageon 2021 Chloride [Moles/Vol] 110 mmol/L 98-107 [facility] Work Phone: Glucose [Mass/Vol] 88 mg/dL 74-106 [facility] Work Phone: Potassium [Moles/Vol] 5.0 mmol/L 3.5-5.1 [facility] Work Phone: Sodium [Moles/Vol] 142 mmol/L 136-145 [facility] Work Phone: Laboratory - Chemistry and C hemistry - challengeon 01-03-2022 CO2 [Moles/Vol] 27.0 mmol/L 21.0-32.0 [facility] Work Phone: Urea nitrogen/Creatinine [Mass ratio] 25.2 mg/mg - [facility] Work Phone: No Panel Informationon 01-03 Estimated GFR (MDRD) Amer 65 mL/min >60 [facility] Work Phone: Comment on above: GFR Calc Estimated GFR (MDRD) Non-Af Amer 53 mL/min >60 [facility] Work Phone: Comment on above: Non- GFR Calc Serum or plasma calcium maranda urement (mass/volume)on 01-03-2022 Calcium [Mass/Vol] 8.1 mg/dL 8.5-10.1 [facility] Work Phone: Serum or plasma creatinine m easurement (mass/volume)on 01-03-2022 Creatinine [Mass/Vol] 1.07 mg/dL 0.55-1.02 [facility] Work Phone: Comment on above: The validity of the calculated GFR & GFRAA in patients over 70 years has not been determined. Clinical correlation is essential. Serum or plasma urea nitroge n measurement (mass/volume)on 01-03-2022 Urea nitrogen [Mass/Vol] 27 mg/dL 7-18 [facility] Work Phone: Thin prep Papanicolaou smear with manual screeningon 01-03-2022 Thin prep Papanicolaou smear with manual screening 5 5-15 [facility] Work Phone: Basophil percentageon 2021 Chloride [Moles/Vol] 110 mmol/L 98-107 [facility] Work Phone: Glucose [Mass/Vol] 90 mg/dL 74-106 [facility] Work Phone: Potassium [Moles/Vol] 4.5 mmol/L 3.5-5.1 [facility] Work Phone: Sodium [Moles/Vol] 141 mmol/L 136-145 [facility] Work Phone: Laboratory - Chemistry and C hemistry - challengeon 12-20-2021 CO2 [Moles/Vol] 28.0 mmol/L 21.0-32.0 [facility] Work Phone: Urea nitrogen/Creatinine [Mass ratio] 16.4 mg/mg 10-20 [facility] Work Phone: No Panel Informationon 12-20 Estimated GFR (MDRD) Amer 55 mL/min >60 [facility] Work Phone: Comment on above: GFR Calc Estimated GFR (MDRD) Non-Af Amer 46 mL/min >60 [facility] Work Phone: Comment on above: Non- GFR Calc Serum or plasma calcium maranda urement (mass/volume)on 12-20-2021 Calcium [Mass/Vol] 8.4 mg/dL 8.5-10.1 [facility] Work Phone: Serum or plasma creatinine m easurement (mass/volume)on 12-20-2021 Creatinine [Mass/Vol] 1.22 mg/dL 0.55-1.02 [facility] Work Phone: Comment on above: The validity of the calculated GFR & GFRAA in patients over 70 years has not been determined. Clinical correlation is essential. Serum or plasma urea nitroge n measurement (mass/volume)on 12-20-2021 Urea nitrogen [Mass/Vol] 20 mg/dL 7-18 [facility] Work Phone: Thin prep Papanicolaou smear with manual screeningon 12-20-2021 Thin prep Papanicolaou smear with manual screening 3 5-15 [facility] Work Phone: Basophil percentageon 2021 Chloride [Moles/Vol] 107 mmol/L 98-107 [facility] Work Phone: Glucose [Mass/Vol] 97 mg/dL 74-106 [facility] Work Phone: Potassium [Moles/Vol] 4.8 mmol/L 3.5-5.1 [facility] Work Phone: Sodium [Moles/Vol] 137 mmol/L 136-145 [facility] Work Phone: Laboratory - Chemistry and C hemistry - challengeon 12-04-2021 CO2 [Moles/Vol] 27.0 mmol/L 21.0-32.0 [facility] Work Phone: Urea nitrogen/Creatinine [Mass ratio] 21.7 mg/mg 10-20 [facility] Work Phone: No Panel Informationon 12-04 Estimated GFR (MDRD) Amer 52 mL/min >60 [facility] Work Phone: Comment on above: GFR Calc Estimated GFR (MDRD) Non-Af Amer 43 mL/min >60 [facility] Work Phone: Comment on above: Non- GFR Calc Serum or plasma calcium maranda urement (mass/volume)on 12-04-2021 Calcium [Mass/Vol] 8.6 mg/dL 8.5-10.1 [facility] Work Phone: Serum or plasma creatinine m easurement (mass/volume)on 12-04-2021 Creatinine [Mass/Vol] 1.29 mg/dL 0.55-1.02 [facility] Work Phone: Comment on above: The validity of the calculated GFR & GFRAA in patients over 70 years has not been determined. Clinical correlation is essential. Serum or plasma urea nitroge n measurement (mass/volume)on 12-04-2021 Urea nitrogen [Mass/Vol] 28 mg/dL 7-18 [facility] Work Phone: Thin prep Papanicolaou smear with manual screeningon 12-04-2021 Thin prep Papanicolaou smear with manual screening 3 5-15 [facility] Work Phone: Basophil percentageon 2021 Chloride [Moles/Vol] 103 mmol/L 98-107 [facility] Work Phone: Glucose [Mass/Vol] 100 mg/dL 74-106 [facility] Work Phone: Comment on above: Fasting Glucose resu lt from 100 to 125 mg/dL suggests IMPAIRED HOMEOSTASIS per A.D.A. criteria. Potassium [Moles/Vol] 4.5 mmol/L 3.5-5.1 [facility] Work Phone: Sodium [Moles/Vol] 135 mmol/L 136-145 [facility] Work Phone: Laboratory - Chemistry and C hemistry - challengeon 11-23-2021 CO2 [Moles/Vol] 27.0 mmol/L 21.0-32.0 [facility] Work Phone: Urea nitrogen/Creatinine [Mass ratio] 15.4 mg/mg 10- [facility] Work Phone: No Panel Informationon 11-23 Estimated GFR (MDRD) Amer 52 mL/min >60 [facility] Work Phone: Comment on above: GFR Calc Estimated GFR (MDRD) Non-Af Amer 43 mL/min >60 [facility] Work Phone: Comment on above: Non- GFR Calc Serum or plasma calcium maranda urement (mass/volume)on 11-23-2021 Calcium [Mass/Vol] 8.9 mg/dL 8.5-10.1 [facility] Work Phone: Serum or plasma creatinine m easurement (mass/volume)on 11-23-2021 Creatinine [Mass/Vol] 1.30 mg/dL 0.55-1.02 [facility] Work Phone: Comment on above: The validity of the calculated GFR & GFRAA in patients over 70 years has not been determined. Clinical correlation is essential. Serum or plasma urea nitroge n measurement (mass/volume)on 11-23-2021 Urea nitrogen [Mass/Vol] 20 mg/dL 7-18 [facility] Work Phone: Thin prep Papanicolaou smear with manual screeningon 11-23-2021 Thin prep Papanicolaou smear with manual screening 5 5-15 [facility] Work Phone: Basophil percentageon 2021 Chloride [Moles/Vol] 107 mmol/L 98-107 [facility] Work Phone: Glucose [Mass/Vol] 86 mg/dL 74-106 [facility] Work Phone: Potassium [Moles/Vol] 4.3 mmol/L 3.5-5.1 [facility] Work Phone: Sodium [Moles/Vol] 138 mmol/L 136-145 [facility] Work Phone: Laboratory - Chemistry and C hemistry - challengeon 11-09-2021 CO2 [Moles/Vol] 24.0 mmol/L 21.0-32.0 [facility] Work Phone: Urea nitrogen/Creatinine [Mass ratio] 21.0 mg/mg 10-20 [facility] Work Phone: No Panel Informationon 11-09 Estimated GFR (MDRD) Amer 54 mL/min >60 [facility] Work Phone: Comment on above: GFR Calc Estimated GFR (MDRD) Non-Af Amer 45 mL/min >60 [facility] Work Phone: Comment on above: Non- GFR Calc Serum or plasma calcium maranda urement (mass/volume)on 11-09-2021 Calcium [Mass/Vol] 8.6 mg/dL 8.5-10.1 [facility] Work Phone: Serum or plasma creatinine m easurement (mass/volume)on 11-09-2021 Creatinine [Mass/Vol] 1.24 mg/dL 0.55-1.02 [facility] Work Phone: Comment on above: The validity of the calculated GFR & GFRAA in patients over 70 years has not been determined. Clinical correlation is essential. Serum or plasma urea nitroge n measurement (mass/volume)on 11-09-2021 Urea nitrogen [Mass/Vol] 26 mg/dL 7-18 [facility] Work Phone: Thin prep Papanicolaou smear with manual screeningon 11-09-2021 Thin prep Papanicolaou smear with manual screening 7 5-15 [facility] Work Phone: Basophil percentageon 2021 Chloride [Moles/Vol] 106 mmol/L 98-107 [facility] Work Phone: Glucose [Mass/Vol] 100 mg/dL 74-106 [facility] Work Phone: Comment on above: Fasting Glucose resu lt from 100 to 125 mg/dL suggests IMPAIRED HOMEOSTASIS per A.D.A. criteria. Potassium [Moles/Vol] 3.8 mmol/L 3.5-5.1 [facility] Work Phone: Sodium [Moles/Vol] 139 mmol/L 136-145 [facility] Work Phone: WBC (Bld) [#/Vol] 4.4 10*3/uL 4.4-11.0 [facility] Work Phone: Blood erythrocytes count (nu mber/volume)on 10-30-2021 RBC (Bld) [#/Vol] 3.16 10*6/uL 4.2-5.4 [facility] Work Phone: Blood hemoglobin measurement (mass/volume)on 10-30-2021 Hemoglobin (Bld) [Mass/Vol] 10.4 g/dL 12.0-15.0 [facility] Work Phone: Blood manual differential co mment interpretation (narrative result)on 10-30-2021 Manual differential comment Shantanu (Bld) [Interp] See comment [facility] Work Phone: Comment on above: PLATELET ESTIMATE: S LIGHT DECREASE Blood platelet mean volumeon 10-30-2021 Platelet mean volume (Bld) [Entitic vol] 12.8 fL 6.2-12.0 [facility] Work Phone: Determination of erythrocyte mean corpuscular volume (MCV)on 10-30-2021 MCV (RBC) [Entitic vol] 96.8 fL 81-99 [facility] Work Phone: Hematocrit Auto (Bld) [Volum e fraction]on 10-30-2021 Hematocrit (Bld) [Volume fraction] 30.6 % 37-47 [facility] Work Phone: Laboratory - Chemistry and C hemistry - challengeon 10-30-2021 CO2 [Moles/Vol] 25.0 mmol/L 21.0-32.0 [facility] Work Phone: Urea nitrogen/Creatinine [Mass ratio] 13.0 mg/mg 10-20 [facility] Work Phone: Laboratory - Hematology and Cell countson 10-30-2021 Erythrocyte distribution width (RBC) [Entitic vol] 45.9 fL 35.1-43.9 [facility] Work Phone: Erythrocyte distribution width (RBC) [Ratio] 13.1 % 11.6-14.6 [facility] Work Phone: MCH (RBC) [Entitic mass] 32.9 pg 27.0-32.0 [facility] Work Phone: MCHC Auto (RBC) [Mass/Vol]on 10-30-2021 MCHC (RBC) [Mass/Vol] 34.0 g/dL 32-36 [facility] Work Phone: No Panel Informationon 10-30 Estimated GFR (MDRD) Amer 77 mL/min >60 [facility] Work Phone: Comment on above: GFR Calc Estimated GFR (MDRD) Non-Af Amer 63 mL/min >60 [facility] Work Phone: Comment on above: Non- GFR Calc Platelets bldon 10-30-2021 Platelets (Bld) [#/Vol] See comment [id number] [facility] Work Phone: Comment on above: Please note: For thi s sample, a platelet estimate is provided rather than a platelet count due to platelet clumping. Other parameters associated with this sample are not affected by platelet clumping. If a more accurate platelet count is required, a redraw of the patient will be necessary. Serum or plasma calcium maranda urement (mass/volume)on 10-30-2021 Calcium [Mass/Vol] 8.9 mg/dL 8.5-10.1 [facility] Work Phone: Serum or plasma creatinine m easurement (mass/volume)on 10-30-2021 Creatinine [Mass/Vol] 0.92 mg/dL 0.55-1.02 [facility] Work Phone: Comment on above: The validity of the calculated GFR & GFRAA in patients over 70 years has not been determined. Clinical correlation is essential. Serum or plasma urea nitroge n measurement (mass/volume)on 10-30-2021 Urea nitrogen [Mass/Vol] 12 mg/dL 7-18 [facility] Work Phone: Thin prep Papanicolaou smear with manual screeningon 10-30-2021 Thin prep Papanicolaou smear with manual screening 8 5-15 [facility] Work Phone: Bilirubin Test strip Ql (U)o n 10-28-2021 Bilirubin Ql (U) Negative Negative [facility] Work Phone: Culture, urineon 10-28-2021 Bacteria identified Cx Nom (U) Culture exhibits no growth. [facility] Work Phone: Ketones Test strip Ql (U)on 10-28-2021 Ketones Ql (U) Negative Negative [facility] Work Phone: Nitrite Test strip Ql (U)on 10-28-2021 Nitrite Ql (U) Negative Negative [facility] Work Phone: Protein Test strip Ql (U)on 10-28-2021 Protein Ql (U) Negative Negative [facility] Work Phone: Urine blood detectionon 10-17 RBC Ql (U) 10 /ul Negative [facility] Work Phone: Urine clarityon 10-28-2021 Clarity (U) Clear Clear [facility] Work Phone: Urine color determinationon 10-28-2021 Color (U) Yellow Yellow [facility] Work Phone: Urine glucose detectionon Glucose Ql (U) Normal mg/dl Normal [facility] Work Phone: Urine leukocyte esterase det ection by dipstickon 10-28-2021 Leukocyte esterase Test strip Ql (U) 500 /ul Negative [facility] Work Phone: Urine pHon 10-28-2021 pH (U) 5.0 [pH] [facility] Work Phone: Urine specific gravity measu rementon 10-28-2021 Specific gravity (U) [Rel density] 1.015 [facility] Work Phone: Urobilinogen Auto test strip Ql (U)on 10-28-2021 Urobilinogen Ql (U) Normal mg/dl Normal [facility] Work Phone: Basophil percentageon 2021 Chloride [Moles/Vol] 106 mmol/L 98-107 [facility] Work Phone: Glucose [Mass/Vol] 88 mg/dL 74-106 [facility] Work Phone: Potassium [Moles/Vol] 4.0 mmol/L 3.5-5.1 [facility] Work Phone: Sodium [Moles/Vol] 138 mmol/L 136-145 [facility] Work Phone: WBC (Bld) [#/Vol] 5.0 10*3/uL 4.4-11.0 [facility] Work Phone: Blood erythrocytes count (nu mber/volume)on 10-25-2021 RBC (Bld) [#/Vol] 2.96 10*6/uL 4.2-5.4 [facility] Work Phone: Blood hemoglobin measurement (mass/volume)on 10-25-2021 Hemoglobin (Bld) [Mass/Vol] 9.4 g/dL 12.0-15.0 [facility] Work Phone: Blood manual differential co mment interpretation (narrative result)on 10-25-2021 Manual differential comment Shantanu (Bld) [Interp] See comment [facility] Work Phone: Comment on above: PLATELET ESTIMATE: A DEQUATE Determination of erythrocyte mean corpuscular volume (MCV)on 10-25-2021 MCV (RBC) [Entitic vol] 96.6 fL 81-99 [facility] Work Phone: Hematocrit Auto (Bld) [Volum e fraction]on 10-25-2021 Hematocrit (Bld) [Volume fraction] 28.6 % 37-47 [facility] Work Phone: Laboratory - Chemistry and C hemistry - challengeon 10-25-2021 CO2 [Moles/Vol] 26.0 mmol/L 21.0-32.0 [facility] Work Phone: Urea nitrogen/Creatinine [Mass ratio] 13.0 mg/mg 10-20 [facility] Work Phone: Laboratory - Hematology and Cell countson 10-25-2021 Erythrocyte distribution width (RBC) [Entitic vol] 45.3 fL 35.1-43.9 [facility] Work Phone: Erythrocyte distribution width (RBC) [Ratio] 12.9 % 11.6-14.6 [facility] Work Phone: MCH (RBC) [Entitic mass] 31.8 pg 27.0-32.0 [facility] Work Phone: MCHC Auto (RBC) [Mass/Vol]on 10-25-2021 MCHC (RBC) [Mass/Vol] 32.9 g/dL 32-36 [facility] Work Phone: No Panel Informationon 10-25 Estimated GFR (MDRD) Amer 64 mL/min >60 [facility] Work Phone: Comment on above: GFR Calc Estimated GFR (MDRD) Non-Af Amer 53 mL/min >60 [facility] Work Phone: Comment on above: Non- GFR Calc Thyroid Stimulating Hormone (TSH) 1.36 uIU/mL 0.358-3.74 [facility] Work Phone: Platelets bldon 10-25-2021 Platelets (Bld) [#/Vol] See comment [phone] [facility] Work Phone: Comment on above: Please note: For thi s sample, a platelet estimate is provided rather than a platelet count due to platelet clumping. Other parameters associated with this sample are not affected by platelet clumping. If a more accurate platelet count is required, a redraw of the patient will be necessary. Serum or plasma calcium maranda urement (mass/volume)on 10-25-2021 Calcium [Mass/Vol] 8.8 mg/dL 8.5-10.1 [facility] Work Phone: Serum or plasma creatinine m easurement (mass/volume)on 10-25-2021 Creatinine [Mass/Vol] 1.08 mg/dL 0.55-1.02 [facility] Work Phone: Comment on above: The validity of the calculated GFR & GFRAA in patients over 70 years has not been determined. Clinical correlation is essential. Serum or plasma urea nitroge n measurement (mass/volume)on 10-25-2021 Urea nitrogen [Mass/Vol] 14 mg/dL 7-18 [facility] Work Phone: Thin prep Papanicolaou smear with manual screeningon 10-25-2021 Thin prep Papanicolaou smear with manual screening 6 5-15 [facility] Work Phone: Basophil percentageon 2021 Chloride [Moles/Vol] 95 mmol/L 98-107 [facility] Work Phone: Glucose [Mass/Vol] 107 mg/dL 74-106 [facility] Work Phone: Comment on above: Fasting Glucose resu lt from 100 to 125 mg/dL suggests IMPAIRED HOMEOSTASIS per A.D.A. criteria. Potassium [Moles/Vol] 3.8 mmol/L 3.5-5.1 [facility] Work Phone: Sodium [Moles/Vol] 131 mmol/L 136-145 [facility] Work Phone: Laboratory - Chemistry and C hemistry - challengeon 10-18-2021 CO2 [Moles/Vol] 25.0 mmol/L 21.0-32.0 [facility] Work Phone: Urea nitrogen/Creatinine [Mass ratio] 14.5 mg/mg 10-20 [facility] Work Phone: No Panel Informationon 10-18 Estimated GFR (MDRD) Amer 87 mL/min >60 [facility] Work Phone: Estimated GFR (MDRD) Non-Af Amer 72 mL/min >60 [facility] Work Phone: Serum or plasma calcium maranda urement (mass/volume)on 10-18-2021 Calcium [Mass/Vol] 8.9 mg/dL 8.5-10.1 [facility] Work Phone: Serum or plasma creatinine m easurement (mass/volume)on 10-18-2021 Creatinine [Mass/Vol] 0.83 mg/dL 0.55-1.02 [facility] Work Phone: Comment on above: The validity of the calculated GFR & GFRAA in patients over 70 years has not been determined. Clinical correlation is essential. Serum or plasma urea nitroge n measurement (mass/volume)on 10-18-2021 Urea nitrogen [Mass/Vol] 12 mg/dL 7-18 [facility] Work Phone: Thin prep Papanicolaou smear with manual screeningon 10-18-2021 Thin prep Papanicolaou smear with manual screening 11 5-15 [facility] Work Phone: Basophil percentageon 2021 Bilirubin [Mass/Vol] 1.00 mg/dL 0.20-1.00 [facility] Work Phone: Comment on above: For patients on eltr ombopag therapy, use of Dimension [place] TBIL is not recommended. Chloride [Moles/Vol] 100 mmol/L 98-107 [facility] Work Phone: Glucose [Mass/Vol] 85 mg/dL 74-106 [facility] Work Phone: Potassium [Moles/Vol] 3.7 mmol/L 3.5-5.1 [facility] Work Phone: Protein [Mass/Vol] 6.2 g/dL 6.4-8.2 [facility] Work Phone: Sodium [Moles/Vol] 131 mmol/L 136-145 [facility] Work Phone: Laboratory - Chemistry and C hemistry - challengeon 10-17-2021 ALP [Catalytic activity/Vol] 55 U/L 45-117 [facility] Work Phone: ALT [Catalytic activity/Vol] 21 U/L 13-56 [facility] Work Phone: CO2 [Moles/Vol] 24.0 mmol/L 21.0-32.0 [facility] Work Phone: Globulin (S) [Mass/Vol] 3.0 g/dL 2.2-4.2 [facility] Work Phone: Urea nitrogen/Creatinine [Mass ratio] 18.2 mg/mg 10-20 [facility] Work Phone: No Panel Informationon 10-17 Estimated Creatinine Clearance Calc 38.29 ml/min [facility] Work Phone: Estimated GFR (MDRD) Amer 75 mL/min >60 [facility] Work Phone: Comment on above: GFR Calc Estimated GFR (MDRD) Non-Af Amer 62 mL/min >60 [facility] Work Phone: Comment on above: Non- GFR Calc Serum or plasma albumin maranda urement (mass/volume)on 10-17-2021 Albumin [Mass/Vol] 3.2 g/dL 3.2-5.0 [facility] Work Phone: Serum or plasma albumin/glob ulin mass ratioon 10-17-2021 Albumin/Globulin [Mass ratio] 1.1 {ratio} 0.9-2.4 [facility] Work Phone: Serum or plasma calcium maranda urement (mass/volume)on 10-17-2021 Calcium [Mass/Vol] 7.8 mg/dL 8.5-10.1 [facility] Work Phone: Serum or plasma creatinine m easurement (mass/volume)on 10-17-2021 Creatinine [Mass/Vol] 0.94 mg/dL 0.55-1.02 [facility] Work Phone: Comment on above: The validity of the calculated GFR & GFRAA in patients over 70 years has not been determined. Clinical correlation is essential. Serum or plasma urea nitroge n measurement (mass/volume)on 10-17-2021 Urea nitrogen [Mass/Vol] 17 mg/dL 7-18 [facility] Work Phone: Thin prep Papanicolaou smear with manual screeningon 10-17-2021 Thin prep Papanicolaou smear with manual screening 19 U/L 15-37 [facility] Work Phone: Thin prep Papanicolaou smear with manual screening 7 5-15 [facility] Work Phone: Absolute lymphocyte counton 10-16-2021 Lymphocytes Auto (Unsp spec) [#/Vol] 1.25 10*3/uL 0.83-4.51 [facility] Work Phone: Basophil percentageon 2021 Basophil percentage 0-5 SEEN /hpf [facility] Work Phone: Basophils/100 WBC (Bld) 0.4 % 0-1 [facility] Work Phone: Eosinophils/100 WBC (Bld) 0.2 % 0-5 [facility] Work Phone: Neutrophils (Bld) [#/Vol] 8.0 10*3/uL 2.0-7.7 [facility] Work Phone: Neutrophils/100 WBC (Bld) 78.1 % 47-70 [facility] Work Phone: WBC (Bld) [#/Vol] 10.3 10*3/uL 4.4-11.0 [facility] Work Phone: Bilirubin Test strip Ql (U)o n 10-16-2021 Bilirubin Ql (U) Negative Negative [facility] Work Phone: Blood erythrocytes count (nu mber/volume)on 10-16-2021 RBC (Bld) [#/Vol] 3.75 10*6/uL 4.2-5.4 [facility] Work Phone: Blood hemoglobin measurement (mass/volume)on 10-16-2021 Hemoglobin (Bld) [Mass/Vol] 11.7 g/dL 12.0-15.0 [facility] Work Phone: Blood lymphocytes/100 leukoc yteson 10-16-2021 Lymphocytes/100 WBC (Bld) 12.2 % 19-41 [facility] Work Phone: Blood monocytes/100 leukocyt eson 10-16-2021 Monocytes/100 WBC (Bld) 8.5 % 0-10 [facility] Work Phone: Blood platelet mean volumeon 10-16-2021 Platelet mean volume (Bld) [Entitic vol] 11.1 fL 6.2-12.0 [facility] Work Phone: Determination of erythrocyte mean corpuscular volume (MCV)on 10-16-2021 MCV (RBC) [Entitic vol] 83.5 fL 81-99 [facility] Work Phone: Hematocrit Auto (Bld) [Volum e fraction]on 10-16-2021 Hematocrit (Bld) [Volume fraction] 31.3 % 37-47 [facility] Work Phone: Ketones Test strip Ql (U)on 10-16-2021 Ketones Ql (U) 5 mg/dl Negative [facility] Work Phone: Laboratory - Hematology and Cell countson 10-16-2021 Erythrocyte distribution width (RBC) [Entitic vol] 35.3 fL 35.1-43.9 [facility] Work Phone: Erythrocyte distribution width (RBC) [Ratio] 11.5 % 11.6-14.6 [facility] Work Phone: Immature granulocytes/100 WBC (Bld) 0.600 % 0.0-0.9 [facility] Work Phone: Comment on above: IG% - Immature Granu locytes (promyelocytes, myelocytes and metamyelocytes) > 1% indicates that a LEFT SHIFT is Present. MCH (RBC) [Entitic mass] 31.2 pg 27.0-32.0 [facility] Work Phone: Nucleated RBC/100 WBC (Bld) [Ratio] 0 % 0-5 [facility] Work Phone: MCHC Auto (RBC) [Mass/Vol]on 10-16-2021 MCHC (RBC) [Mass/Vol] 37.4 g/dL 32-36 [facility] Work Phone: Mucus LM Ql (Urine sed)on Mucus Ql (Urine sed) 0 SEEN /hpf [facility] Work Phone: Nitrite Test strip Ql (U)on 10-16-2021 Nitrite Ql (U) Negative Negative [facility] Work Phone: No Panel Informationon 10-16 SARS-CoV-2 Antigen (Rapid) [facility] Work Phone: Platelets bldon 10-16-2021 Platelets (Bld) [#/Vol] 265 10*3/uL 150-450 [facility] Work Phone: Protein Test strip Ql (U)on 10-16-2021 Protein Ql (U) Negative Negative [facility] Work Phone: Squamous epithelial cells de tection in urine sediment by light microscopyon 10-16-2021 Epithelial cells.squamous LM Ql (Urine sed) 0 SEEN /hpf [facility] Work Phone: Urine blood detectionon - RBC Ql (U) Negative Negative [facility] Work Phone: RBC Ql (U) 0 SEEN /hpf [facility] Work Phone: Urine clarityon 10-16-2021 Clarity (U) Clear Clear [facility] Work Phone: Urine color determinationon 10-16-2021 Color (U) Yellow Yellow [facility] Work Phone: Urine glucose detectionon Glucose Ql (U) Normal mg/dl Normal [facility] Work Phone: Urine leukocyte esterase det ection by dipstickon 10-16-2021 Leukocyte esterase Test strip Ql (U) 500 /ul Negative [facility] Work Phone: Urine pHon 10-16-2021 pH (U) 6.0 [pH] [facility] Work Phone: Urine sediment bacteria coun t by microscopy (number/high power field)on 10-16-2021 Bacteria LM.HPF (Urine sed) [#/Area] 1 /[HPF] None Seen [facility] Work Phone: Urine specific gravity measu rementon 10-16-2021 Specific gravity (U) [Rel density] 1.010 [facility] Work Phone: Urobilinogen Auto test strip Ql (U)on 10-16-2021 Urobilinogen Ql (U) Normal mg/dl Normal [facility] Work Phone: Vital Signs Date Time Vital Sign Value Performing Clinician Farhat hughes 06-04-2023 10:18-0400 Body height 152.4 cm [facility] 10-17-2021 07:10-0500 Body temperature 97.3 [degF] Dr. Galdino Solares Work Phone: [facility] Work Phone: 10-17-2021 07:10-0500 Diastolic blood pressure 59 mm[Hg] Dr. Galdino Solares Work Phone: [facility] Work Phone: 10-17-2021 07:10-0500 Heart rate 67 /min Dr. Galdino Solares Work Phone: [facility] Work Phone: 10-17-2021 07:10-0500 Respiratory rate 16 /min Dr. Galdino Solares Work Phone: [facility] Work Phone: 10-17-2021 07:10-0500 SaO2% (BldA) [Mass fraction] 99 % Dr. Galdino Solares Work Phone: [facility] Work Phone: 10-17-2021 07:10-0500 Systolic blood pressure 126 mm[Hg] Dr. Galdino Solares Work Phone: [facility] Work Phone: 10-16-2021 13:36-0500 Body height 152.[address] Galdino Solares Work Phone: [facility] Work Phone: 10-16-2021 13:36-0500 Body weight 54.[address] Galdino Solares Work Phone: [facility] Work Phone: 10-16-2021 07:46-0500 Body mass index (BMI) [Ratio] 23.3 kg/m2 Dr. Galdino Solares Work Phone: [facility] Work Phone: Encounters Encounter Date Encounter Type Care Provider Facility Start: 07-08-2024 End: 07-08-[address] [facility] Facility:[facility] Start: 06-04-2023 End: 06-04-2023 ambulatory [facility] Work Phone: Start: 06-04-2023 End: 06-04-2023 Patient encounter procedure [facility] Work Phone: Start: 12-04-2022 End: 12-04-2022 ambulatory [facility] Work Phone: Start: 12-04-2022 End: 12-04-2022 Patient encounter procedure [facility] Start: 03-13-2022 End: 03-13-2022 Departed Referred [facility] Start: 02-28-2022 End: 02-28-2022 Departed Referred [facility] Start: 02-28-2022 Registered Referred [facility] Start: 02-15-2022 End: 02-15-2022 Departed Referred [facility] Start: 02-15-2022 Registered Referred [facility] Start: 02-01-2022 End: 02-01-2022 Departed Referred [facility] Start: 01-22-2022 End: 01-22-[address] Galdino Solares Work Phone: [facility] Start: 01-17-2022 End: 01-17-[address] Galdino Solares Work Phone: [facility] Start: 01-03-2022 End: 01-03-[address] Galdino Solares Work Phone: [facility] Start: 01-03-[address] Galdino levine Work Phone: [facility] Start: 12-20-2021 End: 12-20-[address] Galdino Solares Work Phone: [facility] Start: 12-20-[address] Galdino levine Work Phone: [facility] Start: 12-04-2021 End: 12-04-2021 Departed Referred [facility] Start: 12-04-[address] Galdino levine Work Phone: [facility] Start: 11-23-2021 End: 11-23-[address] Galdino Solares Work Phone: [facility] Start: 11-09-2021 End: 11-09-2021 Departed Referred [facility] Start: 11-09-[address] Galdino levine Work Phone: [facility] Start: 10-30-2021 End: 10-30-[address] Galdino Solares Work Phone: [facility] Start: 10-30-[address] Galdino levine Work Phone: [facility] Start: 10-28-[address] Galdino levine Work Phone: [facility] Start: 10-25-2021 End: 10-25-[address] Galdino Solares Work Phone: [facility] Start: 10-25-[address] Galdino levine Work Phone: [facility] Start: 02-02-[address] Galdino levine Work Phone: [facility] Start: 10-17-2021 Non-patient / Non-visit Dr. Jamal Solares Work Phone: [facility] Start: 10-16-2021 Non-patient / Non-visit Dr. Jamal Solares Work Phone: [facility] Start: 10-16-2021 End: 10-17-2021 Evaluation and management of inpatient Dr. Galdino Solares Work Phone: [facility] Care Unit Procedures Date Procedure Procedure Detail Performing Clinician Start: 06-04-2023 Dual energy X-ray absorptiometry Start: 12-04-2022 Screening mammography Start: 10-28-[address] Galdino Solares Work Phone: Start: 10-16-2021 SARS-CoV-2 Antigen (Rapid) Dr. Galdino jackson Work Phone: Start: 10-16-2021 CT of head without contrast Dr. Galdino Solares Work Phone: H/O: surgery History of neck surgery Dr. Galdino Solares Work Phone: Plan of Treatment Date Care Activity Detail Author Patient referral [facility] Work Phone: Immunizations Immunization Date Immunization Notes Care Provider Fa cili 12-15-2020 Covid (Pfizer) Dr. Galdino jackson Work Phone: [facility] 11-24-2020 Covid (Pfizer) Dr. Galdino jackson Work Phone: [facility] 07-09-2019 Fluad 2019-20 65yr up(PF)45 mcg(15 mcgx3)/0.5 mL intramuscular syringe (flu vac Dr. Galdino Solares Work Phone: [facility] Work Phone: Payers Date Payer Category Payer Self-pay [id number] 2024 Medicare [id number] Medicare [id number] a23 [id number] Unknown [id number] Social History Date Type Detail Facility Start: 10-16-2021 Tobacco smoking stat [facility] Unknown if ever smoked [facility] Start: 05-01-2019 None [facility] Start: 05-01-2019 Alone [facility] Start: 01-26-2021 Non-smoker [facility] Start: 1945 Sex Assigned At Female [facility] Functional Status Date Assessment Result Facility 10-17-2021 Functional status Chair [facility] Work Phone: Mental Status Date Assessment Result Facility 10-17-2021 Cognitive function Voice/Name [facility] Work Phone: Evaluation note Note Date & Type Note Facility Evaluation note Diagnosis Onset Date Closed head injury resolved Fall resolved Hyponatremia resolved [facility] Work Phone: Evaluation note Note Date & Type Note Facility Evaluation note No assessment information availa ble [facility] Work Phone: Chief Complaint and Reason for Visit Chief Complaint HYPONATREMIA HYPONATREMIA HYPONATREMIA LAB WORK MCC BLOOD WORK MCC LABWORK MCC LAB WORK MCC LAB WORK MCC LAB WORK LAB WORK MCC LAB WORK Reason for Visit Closed head injury Fall Hyponatremia Chief Complaint HYPONATREMIA HYPONATREMIA HYPONATREMIA LAB WORK MCC BLOOD WORK MCC LABWORK MCC LAB WORK MCC LAB WORK MCC LAB WORK LAB WORK MCC LAB WORK MCC BLOOD WORK Reason for Visit Closed head injury Fall Hyponatremia Chief Complaint HYPONATREMIA HYPONATREMIA HYPONATREMIA LAB WORK MCC BLOOD WORK MCC LABWORK MCC LAB WORK MCC LAB WORK MCC LAB WORK LAB WORK MCC LAB WORK MCC BLOOD WORK MCC LABWORK Reason for Visit Closed head injury Fall Hyponatremia Chief Complaint HYPONATREMIA HYPONATREMIA HYPONATREMIA LAB WORK MCC BLOOD WORK MCC LABWORK MCC LAB WORK MCC LAB WORK MCC LAB WORK LAB WORK MCC LAB WORK MCC BLOOD WORK MCC LABWORK MCC LABWORK Reason for Visit Closed head injury Fall Hyponatremia Chief Complaint LAB WORK MCC BLOOD WORK MCC LABWORK MCC LAB WORK MCC LAB WORK MCC LAB WORK LAB WORK MCC LAB WORK MCC BLOOD WORK MCC LABWORK MCC LABWORK Chief Complaint MCC BLOOD W ORK MCC LABWORK MCC LAB WORK MCC LAB WORK MCC LAB WORK LAB WORK MCC LAB WORK MCC BLOOD WORK MCC LABWORK MCC LABWORK Chief Complaint MCC LAB WOR K MCC LAB WORK LAB WORK MCC LAB WORK MCC BLOOD WORK MCC LABWORK MCC LABWORK LABWORK LABWORK MCC LAB WORK Chief Complaint LAB WORK MCC LAB WORK MCC BLOOD WORK MCC LABWORK MCC LABWORK LABWORK LABWORK MCC LAB WORK LABWORK Chief Complaint SCREENING Chief Complaint MENOPAUSAL STATE Family History No Family History Records Found Relationship Condition Age at Onset Recorded Date/T magali Not Specified Tuberculosis Unknown father Myocardial infarction Unknown Disorder of respiratory system Unknown mother Cerebrovascular accident (CVA) Unknown Neoplasm of brain Unknown History of blood clots Unknown Disorder of intestine Unknown Anxiety and depression Unknown Epilepsy Unknown Estradiol deficiency Unknown Seizure Unknown Allergy to antibiotic Unknown daughter Dysmorphism Unknown sister Cardiac disease Unknown Rheumatic fever Unknown Advance Directives No Advanced Directives Records Found Advance Directive Response Recorded Date/ Time Living Will Yes October 16 9:48am Power of Retort Load Expediter Yes October 16, 2021 9:48am Summary Purpose Additional Source Comments Goals (unrecognized section and content) Goals may be documented in a n alternate sectionGoals may be documented in an alternate sectionGoals may be documented in an alternate sectionGoals may be documented in an alternate sectionGoals may be documented in an alternate sectionGoals may be documented in an alternate sectionGoals may be documented in an alternate sectionGoals may be documented in an alternate sectionGoals may be documented in an alternate sectionGoals may be documented in an alternate sectionGoals may be documented in an alternate sectionGoals may be documented in an alternate sectionGoals may be documented in an alternate sectionGoals may be documented in an alternate sectionGoals may be documented in an alternate sectionGoals may be documented in an alternate sectionGoals may be documented in an alternate section Care Teams (unrecognized sec tion and content) Team Status: Active Member Role Status Dates Dr. Kayden Berg MD Family Provider Active Dr. Kayden Berg MD Primary Care Provider Active Team Status: Inactive Member Role Status Dates Dr. Kayden Berg MD Primary Care Provider, Attending Provider Active Team Status: Inactive Member Role Status Dates Dr. Kayden Berg MD Primary Care Provi delvin, Attending Provider, Referring Provider Active INFORMATION SOURCE (unrecogn ized section and content) DATE CREATED AUTHOR 08/01/2024 [facility] FOR RECORDS PERTAINING TO PATIENTS WHO ARE OR HAVE BEEN ENROLLED IN A CHEMICAL DEPENDENCY/SUBSTANCEABUSE PROGRAM, SOME INFORMATION MAY BE OMITTED. This clinical summary was aggregated from multiple sources. Caution should be exercised in using it in the provision of clinical care. This summary normalizes information from multiple sources, and as a consequence, information in this document may materially change the coding, format and clinical context of patient data. In addition, data may be omitted in some cases. CLINICAL DECISIONS SHOULD BE BASED ON THE PRIMARY CLINICAL RECORDS. [employer] provides no warranty or guarantee of the accuracy or completeness of information in this document.
== END | disposition home or self-care (01) ==
LOC: MFPLAB 14:36
PROVIDERS: PCP Family Medicine; Visit Provider Family Medicine
DX: E78.00 Pure hypercholesterolemia, unspecified (principal)
CPT/HCPCS: 36415; 80053; 80061

== ENCOUNTER → 2025-06-16 | Outpatient (CLI) | payer MEDICARE, SELFPAY ==
--- NOTE | 2025-06-16 14:30 | BI_ITS ---
EXAM: SCRN MAMM (CAD)W/IRMA BILAT DATE: 06/16/2025 CLINICAL HISTORY: F, Age 79 y/o , SCREENING Routine screening TECHNIQUE: Procedure Code: [id number] Modality: MG Procedure: SCRN MAMM (CAD)W/IRMA BILAT COMPARISON: Prior exam(s) dated 12/04/2022. FINDINGS: TISSUE DENSITY: There are scattered areas of fibroglandular density. Bilateral Breast Mammographic Findings: No significant masses, calcifications or other abnormalities are identified. Stable vascular calcifications, no interval change BI/SCRN MAMM (CAD)W/IRMA BILAT IMPRESSION: Stable screening mammogram, no suspicious findings OVERALL FINAL ASSESSMENT BI-RADS 2: BENIGN RECOMMENDATION: Routine annual follow-up in 1 Year Additional Recommendation none A letter with findings and recommendations will be mailed to the patient. Reading Location: [id number]
== END | disposition home or self-care (01) ==
PROVIDERS: PCP Family Medicine; Referring Provider Nurse Practitioner Family; Visit Provider Nurse Practitioner Family
DX: Z12.31 Encounter for screening mammogram for malignant neoplasm of breast (principal)
CPT/HCPCS: 77063; 77067